=== PATIENT | male | born 1950 | race Caucasian/White ===

== ENCOUNTER → 2016-05-16 | Outpatient (CLI) | payer MEDICARE ==
[2016-05-16 14:13] LABS: CH 29.4; CHCM 33.4; HCT 50.6 % (39.0-53.0); HDW 2.56; HGB 16.9 gm/dL (13.0-17.5); MCH 29.6 pg (25.0-35.0); MCHC 33.5 g/dL (31.0-37.0); MCV 88.5 fL (80.0-100.0); Mean Platelet Volume 6.9; RBC 5.71 m/uL (4.30-5.90); RDW 13.4 % (11.5-15.5); WBC 9.6 k/uL (3.8-10.6)
[2016-05-16 14:21] LABS: Anion Gap 12 mmol/L; Blood Urea Nitrogen 14 mg/dL (9-20); Carbon Dioxide 28 mmol/L (22-30); Chloride 102 mmol/L (98-107); Non-African American GFR(MDRD) >60 (>60 ml/min/1.73 sqM); Potassium 4.5 mmol/L (3.5-5.1); Sodium 142 mmol/L (137-145)
== END ==
LOC: LABWHC1 13:34
PROVIDERS: ATTEND Internal Medicine Interventional Cardiology
DX: Z01.812 Encounter for preprocedural laboratory examination (principal); R07.9 Chest pain, unspecified
CPT/HCPCS: 36415; 80051; 82565; 84520; 85027

== ENCOUNTER 2016-05-20 06:21 | Day surgery (SDC) | payer MEDICARE ==
[2016-05-16 11:22] VITALS: BMI 29.7
[2016-05-20] MEDS ORDERED: ASPIRIN 325 MG TAB PO STA (06:52)
[2016-05-20] MEDS ORDERED: ALPRAZolam 0.5 MG TAB PO PRN (06:52)
[2016-05-20] MEDS ORDERED: NITROGLYCERIN SL TABS 0.4 MG TAB SUBLINGUAL PRN (06:52)
[2016-05-20] MEDS ORDERED: ALPRAZolam 0.25 MG TAB PO PRN (06:52)
[2016-05-20] MEDS ORDERED: ATORVASTATIN 80 MG TAB PO STA (06:52)
[2016-05-20] MEDS ORDERED: SODIUM CHLORIDE 0.9% 1,000 ML in EMPTY BAG 1 BAG IV ONE (06:52)
[2016-05-20 07:13] LABS: Glucose,Whole Blood 107 mg/dL (75-99)
[2016-05-20 07:14] VITALS: PULSE 89; RESP 20; TEMP 98.6
[2016-05-20] MEDS ORDERED: fentaNYL (PF) 50 MCG/ML 2 ML AMP IV ONE (07:38)
[2016-05-20] MEDS ORDERED: SODIUM CHLORIDE 0.9% 1,000 ML IV ONE (07:38)
[2016-05-20] MEDS ORDERED: diphenhydrAMINE 50 MG/ML 1 ML VIAL IVP ONE (07:38)
[2016-05-20] MEDS ORDERED: LIDOCAINE 2% INJ 20 MG/ML SQ ONE (07:41)
[2016-05-20] MEDS ORDERED: IOHEXOL 350 MG/ML 100 ML BOTTLE INJ ONE (07:51)
[2016-05-20] MEDS ORDERED: RX INFO: IV CONTRAST WAS GIVEN 1 EACH MISC MISCELLANE PRN (08:05)
--- NOTE | 2016-05-20 08:12 | P.PCN ---
Date of Procedure: 05/20/16 Preoperative Diagnosis: Exertional chest pains with multiple risk factors. Patient has history of hypertension, diabetes and obesity. Nuclear stress test was negative. However given his ongoing chest pains with exertion a cardiac catheterization was requested for definitive diagnosis. Patient was explained the risks and benefits of the procedure. Postoperative Diagnosis: Mild diffuse plaque without any significant lesions Procedure(s) Performed: Left heart catheterization including left ventriculography Description of Procedure: HISTORY: This patient with history of hypertension and diabetes has been experiencing exertional chest tightness. Patient had a nuclear stress test that showed normal perfusion and function. However patient continued to have symptoms and a cardiac catheterization is requested to rule out underlying ischemic heart disease. CONSENT:I have discussed the risks, benefits and alternative therapies for the above-mentioned procedure and for both sedation/analgesia as well as necessary blood product administration, if indicated, as they pertain to this patient. The patient has indicated understanding and acceptance of the risks and procedures discussed. PROCEDURE: Patient was brought to the lab in a fasting state. Patient was given some IV sedation. Conscious sedation was given for about 20 minutes. The right groin is infiltrated with lidocaine and right femoral artery was entered using Seldinger technique. A 6-Vincentian catheter was left in place and selective coronary arteriography and left ventriculography was performed. Patient tolerated the procedure well. Femoral angiogram was performed and Angio -Seal was applied for hemostasis. No immediate complications were noted and patient was transferred to [facility] in a stable condition HEMODYNAMICS: The aortic pressure is 120/70. Left ankle end-diastolic pressure is about 4 to 8. There was no gradient across the aortic valve. SELECTIVE CORONARY ARTERIOGRAPHY: LEFT MAIN: Normal length and patent THE LEFT ANTERIOR DESCENDING CORONARY ARTERY: This is a good caliber vessel which reaches the apex. Gives rise to good-sized diagonal branch which has mild ostial stenosis. THE LEFT CIRCUMFLEX AND IS CORONARY ARTERY: This is a good caliber vessel but nondominant. It gives rise to OM branch and also apical segment. The circumflex and its branches are free of occlusive disease. THE RIGHT CORONARY ARTERY: This is a good caliber vessel giving rise to PDA and PLV and dominant in distribution. It has diffuse plaque throughout its length without any critical focal lesions. LEFT VENTRICULOGRAPHY: This revealed normal-sized cardiac silhouette with preserved LV function. FINAL IMPRESSION: Mild diffuse plaque especially in the right coronary artery without any critical lesions. PLAN: Risk factor modification and the maximum medical therapy PROGNOSIS: Fair
[2016-05-20] MEDS ORDERED: SODIUM CHLORIDE 0.9% 1,000 ML IV SCH (08:15)
[2016-05-20 09:53] LABS: Glucose,Whole Blood 111 mg/dL (75-99)
[2016-05-20 13:21] VITALS: BP 127/77
== END 2016-05-20 13:00 | disposition home or self-care (01) ==
LOC: CATHCVL 06:21
PROVIDERS: ATTEND Internal Medicine Cardiovascular Disease
DX: I25.119 Atherosclerotic heart disease of native coronary artery with unspecified angina pectoris (principal); E11.9 Type 2 diabetes mellitus without complications; I10 Essential (primary) hypertension; E66.9 Obesity, unspecified; F17.210 Nicotine dependence, cigarettes, uncomplicated; Z79.84 Long term (current) use of oral hypoglycemic drugs; Z79.82 Long term (current) use of aspirin; Z79.51 Long term (current) use of inhaled steroids; Z79.899 Other long term (current) drug therapy
CPT/HCPCS: 93458; 99152; C1760; C1894; C1769; J2001; J1200; Q9967; J3010

== ENCOUNTER 2019-04-17 08:34 | Inpatient (IN) | payer MEDICARE ==
[2019-04-17] MEDS ORDERED: SODIUM CHLORIDE 0.9% 500 ML 500 ML IV STA ×2 (09:08→10:02)
[2019-04-17 09:28] LABS: Basophils % (A) 0 %; Eosinophils # (A) 0.2 k/uL (0-0.7); Eosinophils % (A) 2 %; HCT 49.6 % (39.0-53.0); HGB 16.3 gm/dL (13.0-17.5); Lymphocytes # (A) 1.8 k/uL (1.0-4.8); Lymphocytes % (A) 17 %; MCH 29.6 pg (25.0-35.0); MCHC 32.9 g/dL (31.0-37.0); MCV 89.9 fL (80.0-100.0); Mean Platelet Volume 6.9; Monocytes # (A) 0.6 k/uL (0-1.0); Monocytes % (A) 5 %; Neutrophils # (A) 7.9 k/uL (1.3-7.7); Neutrophils % (A) 74 %; Platelet Count 273 k/uL (150-450); RBC 5.52 m/uL (4.30-5.90); RDW 13.4 % (11.5-15.5); WBC 10.6 k/uL (3.8-10.6)
[2019-04-17 09:37] LABS: INR 0.9 (<1.2); Prothrombin Time 9.6 sec (9.0-12.0)
[2019-04-17 09:38] LABS: ALT 23 U/L (4-49); AST 32 U/L (17-59); African American GFR (CKD) >90 (>60 ml/min/1.73 sqM); Albumin 4.1 g/dL (3.5-5.0); Alkaline Phosphatase 91 U/L (38-126); Amylase 40 U/L (30-110); Anion Gap 9 mmol/L; Blood Urea Nitrogen 15 mg/dL (9-20); Calcium 8.8 mg/dL (8.4-10.2); Carbon Dioxide 26 mmol/L (22-30); Chloride 102 mmol/L (98-107); Glucose 141 mg/dL (74-99); Non-African American GFR(CKD) >90 (>60 ml/min/1.73 sqM); Potassium 4.6 mmol/L (3.5-5.1); Sodium 137 mmol/L (137-145); Total Bilirubin 0.5 mg/dL (0.2-1.3); Total Protein 7.2 g/dL (6.3-8.2)
--- NOTE | 2019-04-17 09:39 | ED ---
Abdominal Pain HPI - General Source: patient Mode of arrival: ambulatory Limitations: no limitations <Dora Webb - Last Filed: 04/17/19 15:22> <Germiane Lucas - Last Filed: 04/17/19 23:07> - General Chief Complaint: Abdominal Pain Stated Complaint: ABD Pain Time Seen by Provider: 04/17/19 08:44 - History of Present Illness Initial Comments: Patient is a 69-year-old male presenting to emergency Department with complaints of blood in his ostomy bag. Patient states he woke up this morning feeling some mild pressure and discomfort in his abdomen. Patient also noticed that he had an empty colostomy bag which is abnormal for him in the mornings. Upon further inspection he states he noticed blood in his bag. Patient did try to eat some toast and went back to bed for a few hours and when he woke up he is still had noticeable discomfort in his abdomen so he came to the ER. Patient states he's had his colostomy for approximately 20 years. It was revised 10 years ago. History of cholecystectomy, no other abdominal surgeries. Patient denies any fever, vomiting, dysuria. He has no other complaints at this time. Upon arrival to the ER, patient's BP slightly elevated at 176 or 96, pulse is 102, rest of vitals normal. (Dora Webb) - Related Data Home Medications Medication Instructions Recorded Confirmed ALPRAZolam [Xanax] 1 mg PO TID PRN 05/16/16 04/17/19 Albuterol Nebulized [Ventolin 2.5 mg INHALATION RT-TID 05/16/16 04/17/19 Nebulized] Ascorbic Acid [Vitamin C] 500 mg PO DAILY 05/16/16 04/17/19 Aspirin 325 mg PO DAILY 05/16/16 04/17/19 Budesonide-Formot 160-4.5 Mcg 2 puff INHALATION RT-BID 05/16/16 04/17/19 [Symbicort 160-4.5 Mcg Inhaler] Calcium Carbonate/Vitamin D3 1 tab PO BID-W/MEALS 05/16/16 04/17/19 [Calcium 500-Vit D3 600 Tablet] FLUoxetine HCL [PROzac] 40 mg PO DAILY 05/16/16 04/17/19 Isosorbide Mononitrate [Isosorbide 30 mg PO DAILY 05/16/16 04/17/19 Mononitrate ER] Nitroglycerin Sl Tabs [Nitrostat] 0.4 mg SUBLINGUAL Q5M PRN 05/16/16 04/17/19 Tiotropium [place] [Spiriva] 1 cap INHALATION DAILY 05/16/16 04/17/19 amLODIPine BESYLATE/BENAZEPRIL 1 cap PO DAILY 05/16/16 04/17/19 [Lotrel 2.5-10 MG] metFORMIN HCL [Glucophage] 500 mg PO DAILY 05/16/16 04/17/19 Albuterol Sulfate [Proair Hfa] 2 puff INHALATION RT-Q6H PRN 04/17/19 04/17/19 C,E,Zinc,Copper 11/Evqkt2u/Lut 1 cap PO DAILY 04/17/19 04/17/19 [Ocuvite Adult 50 Plus Softgel] Chuckie/D3/Mag11/Zinc/Malt Loader/[place]asper/Bor 1 tab PO BID 04/17/19 04/17/19 [Caltrate 600+D Plus Tablet] Levothyroxine Sodium [Synthroid] 25 mcg PO DAILY 04/17/19 04/17/19 Multivitamins, Thera [Multivitamin 1 tab PO DAILY 04/17/19 04/17/19 (formulary)] Nystatin 100,000Unit/gm Cream 1 applic TOPICAL BID 04/17/19 04/17/19 [Mycostatin Cream] Pravastatin Sodium [Pravachol] 10 mg PO DAILY 04/17/19 04/17/19 buPROPion HCL [buPROPion HCL ER] 200 mg PO DAILY 04/17/19 04/17/19 Allergies Allergy/AdvReac Type Severity Reaction Status Date / Time No Known Allergies Allergy Verified 04/17/19 12:01 Review of Systems ROS Other: All systems not noted in ROS Statement are negative. <Dora Webb - Last Filed: 04/17/19 15:22> ROS Other: All systems not noted in ROS Statement are negative. <Germaine Lucas - Last Filed: 04/17/19 23:07> ROS Statement: Those systems with pertinent positive or pertinent negative responses have been documented in the HPI. Past Medical History Past Medical History: Asthma, Chest Pain / Angina, COPD, Diabetes Mellitus, Hypertension, Thyroid Disorder Additional Past Medical History / Comment(s): WHEN REALLY SHORT OF BREATH GETS CP. HX ULCERATIVE COLITIS, HAS ILEOSTOMY. History of Any Multi-Drug Resistant Organisms: None Reported Past Surgical History: Bowel Resection, Cholecystectomy Additional Past Surgical History / Comment(s): HAS ILEOSTOMY, REASSIGNED IT LATER D/T HERNIATION. Past Anesthesia/Blood Transfusion Reactions: No Reported Reaction Past Psychological History: Anxiety, Depression Smoking Status: Current every day smoker Past Alcohol Use History: None Reported Past Drug Use History: None Reported - Past Family History Father Family Medical History: Cancer, Deep Vein Thrombosis (DVT) Sister(s) Family Medical History: Cancer, CVA/TIA <Dora Webb - Last Filed: 04/17/19 15:22> General Exam Limitations: no limitations <Dora Webb - Last Filed: 04/17/19 15:22> - General Exam Comments Initial Comments: GENERAL: Well-appearing, well-nourished and in no acute distress. HEAD: Atraumatic, normocephalic. EYES: Pupils equal round and reactive to light, extraocular movements intact, sclera anicteric, conjunctiva are normal. ENT: TMs normal, nares patent, oropharynx clear without exudates. Moist mucous membranes. NECK: Normal range of motion, supple without lymphadenopathy or JVD. LUNGS: Breath sounds clear to auscultation bilaterally and equal. No wheezes rales or rhonchi. HEART: Regular rate and rhythm without murmurs, rubs or gallops. ABDOMEN: Patient has generalized mid abdominal as well as right-sided tenderness around colostomy site. There is some hardness of the area as well. No left-sided discomfort. No flank pain. Normoactive bowel sounds. No guarding, no rebound. : Deferred EXTREMITIES: Normal range of motion, no pitting or edema. No clubbing or cyanosis. NEUROLOGICAL: Normal speech, normal gait. PSYCH: Normal mood, normal affect. SKIN: Warm, Dry, normal turgor, no rashes or lesions noted. (Dora Webb) Course Vital Signs 04/17/19 04/17/19 08:36 11:24 Temperature 98 F 97.4 F L Pulse Rate 102 H 76 Respiratory 18 18 Rate Blood Pressure 176/96 147/85 O2 Sat by Pulse 98 96 Oximetry Medical Decision Making - Lab Data Result diagrams: 04/17/19 09:17 04/17/19 09:17 <Dora Webb - Last Filed: 04/17/19 15:22> - Lab Data Result diagrams: 04/17/19 09:17 04/17/19 09:17 <Germaine Lucas - Last Filed: 04/17/19 23:07> - Medical Decision Making Patient is a 69-year-old male with history of colostomy presenting with some abdominal pain as well as blood in his ostomy bag this morning. The bag was also empty which is abnormal for him in the mornings. He has history of cholecystectomy in addition to the colostomy. Patient was slightly tachycardia at 102 upon arrival, rest of vitals normal. Lab work shows lactic acid 2.1. Rest of lab work shows no acute abnormalities. CT of the abdomen shows ileotomy in the right lower quadrant with the small bowel contained within it and a proximal small bowel obstruction. Patient was given fluids, pain control. He does report improvement in his symptoms. Case was discussed with on-call surgeon, Dr. Liz. Patient will be admitted, antibiotics started, NG tube placed. Patient is agreement with this plan of care. Case was discussed with Dr. Lucas who agrees with this plan of care. (Dora Webb) I was available for consultation in the emergency department. The history and physical exam were done by the midlevel provider. I was consulted for this patients care. I reviewed the case with the midlevel provider and based on their presentation of the patient, I agree with the assessment, medical decision making and plan of care as documented. Chart was dictated using [employer] dictation software. Attempts were made to correct any dictation errors however some typographical errors may persist. (Germaine Lucas) - Lab Data Lab Results 04/17/19 04/17/19 04/17/19 Range/Units 09:17 09:17 09:17 WBC 10.6 (3.8-10.6) k/uL RBC 5.52 (4.30-5.90) m/uL Hgb 16.3 (13.0-17.5) gm/dL Hct 49.6 (39.0-53.0) % MCV 89.9 (80.0-100.0) fL MCH 29.6 (25.0-35.0) pg MCHC 32.9 (31.0-37.0) g/dL RDW 13.4 (11.5-15.5) % Plt Count 273 (150-450) k/uL Neutrophils % 74 % Lymphocytes % 17 % Monocytes % 5 % Eosinophils % 2 % Basophils % 0 % Neutrophils # 7.9 H (1.3-7.7) k/uL Lymphocytes # 1.8 (1.0-4.8) k/uL Monocytes # 0.6 (0-1.0) k/uL Eosinophils # 0.2 (0-0.7) k/uL Basophils # 0.0 (0-0.2) k/uL PT 9.6 (9.0-12.0) sec INR 0.9 (<1.2) APTT 23.0 (22.0-30.0) sec Sodium 137 (137-145) mmol/L Potassium 4.6 (3.5-5.1) mmol/L Chloride 102 (98-107) mmol/L Carbon Dioxide 26 (22-30) mmol/L Anion Gap 9 mmol/L BUN 15 (9-20) mg/dL Creatinine 0.79 (0.66-1.25) mg/dL Est GFR (CKD-EPI)AfAm >90 (>60 ml/min/1.73 sqM) Est GFR (CKD-EPI)NonAf >90 (>60 ml/min/1.73 sqM) Glucose 141 H (74-99) mg/dL Lactic Ac Sepsis Rflx Plasma Lactic Acid Kevin (0.7-2.0) mmol/L Calcium 8.8 (8.4-10.2) mg/dL Total Bilirubin 0.5 (0.2-1.3) mg/dL AST 32 (17-59) U/L ALT 23 (4-49) U/L Alkaline Phosphatase 91 (38-126) U/L Total Protein 7.2 (6.3-8.2) g/dL Albumin 4.1 (3.5-5.0) g/dL Amylase 40 (30-110) U/L Lipase 269 (23-300) U/L 04/17/19 04/17/19 Range/Units 09:17 09:56 WBC (3.8-10.6) k/uL RBC (4.30-5.90) m/uL Hgb (13.0-17.5) gm/dL Hct (39.0-53.0) % MCV (80.0-100.0) fL MCH (25.0-35.0) pg MCHC (31.0-37.0) g/dL RDW (11.5-15.5) % Plt Count (150-450) k/uL Neutrophils % % Lymphocytes % % Monocytes % % Eosinophils % % Basophils % % Neutrophils # (1.3-7.7) k/uL Lymphocytes # (1.0-4.8) k/uL Monocytes # (0-1.0) k/uL Eosinophils # (0-0.7) k/uL Basophils # (0-0.2) k/uL PT (9.0-12.0) sec INR (<1.2) APTT (22.0-30.0) sec Sodium (137-145) mmol/L Potassium (3.5-5.1) mmol/L Chloride (98-107) mmol/L Carbon Dioxide (22-30) mmol/L Anion Gap mmol/L BUN (9-20) mg/dL Creatinine (0.66-1.25) mg/dL Est GFR (CKD-EPI)AfAm (>60 ml/min/1.73 sqM) Est GFR (CKD-EPI)NonAf (>60 ml/min/1.73 sqM) Glucose (74-99) mg/dL Lactic Ac Sepsis Rflx Y Plasma Lactic Acid Kevin 2.1 H* (0.7-2.0) mmol/L Calcium (8.4-10.2) mg/dL Total Bilirubin (0.2-1.3) mg/dL AST (17-59) U/L ALT (4-49) U/L Alkaline Phosphatase (38-126) U/L Total Protein (6.3-8.2) g/dL Albumin (3.5-5.0) g/dL Amylase (30-110) U/L Lipase (23-300) U/L Disposition Is patient prescribed a controlled substance at d/c from ED?: No Decision Date: 04/17/19 Decision Time: 11:09 <Dora Webb - Last Filed: 04/17/19 15:22> <Germaine Lucas - Last Filed: 04/17/19 23:07> Clinical Impression: Small bowel obstruction, Abdominal pain, Hernia of small intestine Disposition: ADMITTED IP TO THIS HOSP Condition: Stable
--- NOTE | 2019-04-17 10:26 | CT ---
EXAMINATION TYPE: CT abdomen pelvis w con DATE OF EXAM: 04/17/2019 REFERENCE: None. HISTORY: abdominal pain, blood in ostomy bag HISTORY: Blood in ileostomy bag, gassy REFERENCE: NONE CT DLP: 1477.7 mGy Automated exposure control for dose reduction was used. TECHNIQUE: Helical acquisition through the abdomen and pelvis was obtained following the oral ingesti on of without Oral Contrast and following intravenous administration of 100 mL of Isovue 300. The isabela a was reformatted in axial, coronal and sagittal projections. FINDINGS: There is minimal atelectasis at the lung bases. There is no pleural or pericardial fluid. The heart is not enlarged. Within the abdomen, the gallbladder has been removed. The liver and spleen are normal. Both adrenal glands are normal. Both kidneys demonstrate function. There is a 2.9 cm, simple appearing cyst arising from the lower po le of the left kidney. The pancreas is unremarkable. There is mild to moderate atheromatous calcification of the visualized arterial tree. There is no sig nificant retroperitoneal, iliac or inguinal adenopathy. The bladder appears unremarkable. There is an ostomy in the right lower quadrant. Several loops of small bowel are contained within thi s ostomy. There is proximal dilatation of the small bowel. The very proximal jejunum is not dilated. No large bowel is identified. There is no free fluid and no free air. There is mild facet arthropathy within the spine. There is mild hypertrophic spondylosis in the dorsa l spine. IMPRESSION: 1. ILEOSTOMY IN THE RIGHT LOWER QUADRANT WITH OF THE SMALL BOWEL CONTAINED WITHIN IT AND A PROXIMAL S MALL BOWEL OBSTRUCTION. 2. STATUS POST COLECTOMY AND CHOLECYSTECTOMY. 3. SIMPLE APPEARING LEFT LOWER POLE RENAL CYST.
[2019-04-17] MEDS ORDERED: ONDANSETRON 4 MG/2 ML VIAL IVP STA (10:43)
[2019-04-17] MEDS ORDERED: MORPHINE SULFATE 4 MG/ML SYRINGE IVP STA (10:43)
[2019-04-17] MEDS ORDERED: MORPHINE SULFATE 4 MG/ML SYRINGE IV PRN (11:06)
[2019-04-17] MEDS ORDERED: ONDANSETRON 4 MG/2 ML VIAL IVP PRN (11:06)
[2019-04-17] MEDS ORDERED: NALOXONE 0.4 MG/ML 1 ML VIAL IV PRN (11:06)
[2019-04-17] MEDS ORDERED: PIPERACILLIN-TAZOBACTAM 3.375 GM in SODIUM CHLORIDE 0.9% 100 ML IVPB STA (11:09)
[2019-04-17] MEDS: SODIUM CHLORIDE 0.9% 1,000 ML IV SCH ×2 (14:02→23:30)
[2019-04-17] MEDS ORDERED: BENZOCAINE SPRAY 1 CAN MUCOUS MEM PRN (16:46)
[2019-04-17 16:56] LABS: Glucose,Whole Blood 102 mg/dL (75-99)
[2019-04-17 23:48] LABS: Appearance,Urine Clear (Clear); Bilirubin,Urine Negative (Negative); Blood,Urine Negative (Negative); Color,Urine Yellow; Glucose,Urine (UA) Negative (Negative); Ketones,Urine Negative (Negative); Leukocyte Esterase,Urine Negative (Negative); Nitrite,Urine Negative (Negative); Protein,Urine Negative (Negative); Specific Gravity,Urine 1.027 (1.001-1.035); Urobilinogen,Urine <2.0 mg/dL (<2.0)
[2019-04-18] MEDS ORDERED: ENALAPRILAT 1.25 MG/ML 1 ML VIAL IVP PRN (08:54)
[2019-04-18] MEDS ORDERED: IPRATROPIUM-ALBUTEROL 3 ML NEB INHALATION PRN (08:57)
[2019-04-18] MEDS ORDERED: METOCLOPRAMIDE 5 MG/ML 2 ML VIAL IVP PRN (09:36)
[2019-04-18] MEDS: INSULIN ASPART (NovoLOG) 100 UNIT/ML VIAL SQ SCH ×2 (09:42→15:38)
--- NOTE | 2019-04-18 09:49 | XR ---
EXAMINATION TYPE: XR abdomen 2V DATE OF EXAM: 04/18/2019 COMPARISON: 04/17/2019 HISTORY: Pain TECHNIQUE: One view abdominal series FINDINGS: The osseous structures are intact. The bowel gas pattern is nonspecific there is a paucity of bowel gas. NG tube again noted. Surgical clips gallbladder fossa. 5 mm nodular density left lower lobe. IMPRESSION: 1. Nonspecific abdomen. There is a paucity of bowel gas which can be seen with partial obstruction co rrelate clinically. 2. Nodular appearing density left lung base appears to be compatible areas of linear atelectasis or s carring by recent CT scan.
[2019-04-18] MEDS ORDERED: ONDANSETRON 4 MG/2 ML VIAL IVP PRN (11:19)
--- NOTE | 2019-04-18 11:20 | P.GSCN ---
History of Present Illness Consult date: 04/18/19 Reason for Consult: Small bowel obstruction Requesting physician: Dora Webb History of present illness: CHIEF COMPLAINT: Abdominal pain HISTORY OF PRESENT ILLNESS: 69-year-old male who presented to emergency room with chief complaint of abdominal pain. Patient reports he woke up 2 days ago with some abdominal pain that he thought initially was gas pains. She reports going back to bed and when he woke up again he reported some blood in his ostomy with no stool output. Patient reports since coming to the ER and having NG tube placed, he has had liquid stool. He reports emptying his ostomy a few times this morning. NG to LIS with bilious drainage. Patient reports having an "upset stomach" this morning. He reports nausea. PAST MEDICAL HISTORY: See list. PAST SURGICAL HISTORY: See list. SOCIAL HISTORY: No illicit drug use. REVIEW OF SYSTEMS: CONSTITUTIONAL: Denies fever or chills. HEENT: Denies blurred vision, vision changes, or eye pain. Denies hemoptysis CARDIOVASCULAR: Denies chest pain or pressure. RESPIRATORY: No shortness of breath. GASTROINTESTINAL: Refer to HPI for pertinent findings HEMATOLOGIC: Denies bleeding disorders. GENITOURINARY: Denies any blood in urine. SKIN: Denies pruitis. Denies rash. PHYSICAL EXAM: VITAL SIGNS: Reviewed. GENERAL: Well-developed in no acute distress. HEENT: No sclera icterus. Extraocular movements grossly intact. Moist buccal mucosa. Head is atraumatic, normocephalic. ABDOMEN: Soft. Nondistended. Nontender. Ostomy intact with green/brown liquid stool. NEUROLOGIC: Alert and oriented. Cranial nerves II through XII grossly intact. LABORATORY DATA: WBC 10.6. Hemoglobin 16.3. Platelet count 273. Sodium 137. Potassium 4.6. BUN 15. Creatinine 0.79. Lactic acid 2.1. Repeat 0.9. IMAGING: CT abdomen pelvis: Ostomy right lower quadrant. Several loops of small bowel are contained within this ostomy. Proximal dilation of the small bowel. ASSESSMENT: 1. Abdominal pain 2. Small bowel obstruction PLAN: NPO except for ice chips, popsicles, and medications Continue NG to LIS today due to nausea. Continue Zofran PRN. Obtain 2V abdominal xray Nurse practitioner note has been reviewed by physician. Signing provider agrees with the documented findings, assessment, and plan of care. Past Medical History Past Medical History: Asthma, Chest Pain / Angina, COPD, Diabetes Mellitus, Hype rtension, Thyroid Disorder Additional Past Medical History / Comment(s): WHEN REALLY SHORT OF BREATH GETS CP. HX ULCERATIVE COLITIS, HAS ILEOSTOMY. History of Any Multi-Drug Resistant Organisms: None Reported Past Surgical History: Bowel Resection, Cholecystectomy Additional Past Surgical History / Comment(s): HAS ILEOSTOMY, REASSIGNED IT LATER D/T HERNIATION. Past Anesthesia/Blood Transfusion Reactions: No Reported Reaction Past Psychological History: Anxiety, Depression Smoking Status: Current every day smoker Past Alcohol Use History: None Reported Past Drug Use History: None Reported - Past Family History Father Family Medical History: Cancer, Deep Vein Thrombosis (DVT) Sister(s) Family Medical History: Cancer, CVA/TIA Medications and Allergies Home Medications Medication Instructions Recorded Confirmed Type ALPRAZolam [Xanax] 1 mg PO TID PRN 05/16/16 04/17/19 History Albuterol Nebulized [Ventolin 2.5 mg INHALATION RT-TID 05/16/16 04/17/19 History Nebulized] Ascorbic Acid [Vitamin C] 500 mg PO DAILY 05/16/16 04/17/19 History Aspirin 325 mg PO DAILY 05/16/16 04/17/19 History Budesonide-Formot 160-4.5 Mcg 2 puff INHALATION RT-BID 05/16/16 04/17/19 History [Symbicort 160-4.5 Mcg Inhaler] Calcium Carbonate/Vitamin D3 1 tab PO BID-W/MEALS 05/16/16 04/17/19 History [Calcium 500-Vit D3 600 Tablet] FLUoxetine HCL [PROzac] 40 mg PO DAILY 05/16/16 04/17/19 History Isosorbide Mononitrate [Isosorbide 30 mg PO DAILY 05/16/16 04/17/19 History Mononitrate ER] Nitroglycerin Sl Tabs [Nitrostat] 0.4 mg SUBLINGUAL Q5M PRN 05/16/16 04/17/19 History Tiotropium [place] [Spiriva] 1 cap INHALATION DAILY 05/16/16 04/17/19 History amLODIPine BESYLATE/BENAZEPRIL 1 cap PO DAILY 05/16/16 04/17/19 History [Lotrel 2.5-10 MG] metFORMIN HCL [Glucophage] 500 mg PO DAILY 05/16/16 04/17/19 History Albuterol Sulfate [Proair Hfa] 2 puff INHALATION RT-Q6H PRN 04/17/19 04/17/19 History C,E,Zinc,Copper 11/Wubyp6s/Lut 1 cap PO DAILY 04/17/19 04/17/19 History [Ocuvite Adult 50 Plus Softgel] Chuckie/D3/Mag11/Zinc/Price Accuracy Supervisor/Jasper/Bor 1 tab PO BID 04/17/19 04/17/19 History [Caltrate 600+D Plus Tablet] Levothyroxine Sodium [Synthroid] 25 mcg PO DAILY 04/17/19 04/17/19 History Multivitamins, Thera [Multivitamin 1 tab PO DAILY 04/17/19 04/17/19 History (formulary)] Nystatin 100,000Unit/gm Cream 1 applic TOPICAL BID 04/17/19 04/17/19 History [Mycostatin Cream] Pravastatin Sodium [Pravachol] 10 mg PO DAILY 04/17/19 04/17/19 History buPROPion HCL [buPROPion HCL ER] 200 mg PO DAILY 04/17/19 04/17/19 History Allergies Allergy/AdvReac Type Severity Reaction Status Date / Time No Known Allergies Allergy Verified 04/17/19 12:01 Surgical - Exam Vital Signs Temp Pulse Resp BP Pulse Ox 98 F 102 H 18 176/96 98 04/17/19 08:36 04/17/19 08:36 04/17/19 08:36 04/17/19 08:36 04/17/19 08:36 Results - Labs 04/17/19 09:17 04/17/19 09:17 Abnormal Lab Results - Last 24 Hours (Table) 04/17/19 Range/Units 16:54 POC Glucose (mg/dL) 102 H (75-99) mg/dL
[2019-04-18 11:41] LABS: Glucose,Whole Blood 109 mg/dL (75-99)
[2019-04-18] MEDS: LEVOTHYROXINE IVP 100 MCG/5 ML VIAL IV SCH (11:55)
[2019-04-18] MEDS: PANTOPRAZOLE 40 MG/10 ML VIAL IVP SCH (12:00)
[2019-04-18] MEDS: IPRATROPIUM-ALBUTEROL 3 ML NEB INHALATION SCH ×2 (12:01→20:32)
--- NOTE | 2019-04-18 13:46 | P.HPIM ---
History of Present Illness H&P Date: 04/18/19 Chief Complaint: Blood in ostomy bag This is a 69-year-old male patient of Dr. Angeles, Dr. Painter, Dr. Morel past medical history of diabetes mellitus type 2, hypertension, COPD with FEV1 40% without O2 or prednisone dependence, hypothyroidism, ulcerative colitis status post ileostomy initially done [address] Danielson with revision done [address] Liz, tobacco use and dependence, generalized anxiety disorder and recurrent depression. Patient states that he woke up very early on Thursday morning had bad gas pains around the stoma area. He states his abdomen was also firmer than normal not soft. He had toast and peanut butter went back to bed put a towel over his abdomen trying to relieve the discomfort. He woke up at 7 AM and the pain was still there and then he noticed a bloody liquid in his ostomy bag. It was a bright red fresh type of blood. He complains of nausea without vomiting. He denies any lower extremity edema. He denies any joint scan or eye involvement from the ulcerative colitis. At the time of evaluation, patient has some nausea, no vomiting, abdomen is a little tender around the stoma but softer. Patient came into [facility] emergency center for evaluation. Patient was afebrile, heart rate 102, blood pressure 176/96, pulse ox 98% on room air. CBC unremarkable, electrolytes, renal function within normal limits, blood sugar 141, lactic acid 2.1, liver function tests within normal limits. CAT scan of the abdomen and pelvis with contrast revealed ileostomy in the right lower quadrant with small bowel contained within it and a proximal small bowel obstruction. Status post colectomy and cholecystectomy. Simple appearing left lower patient had NG tube placed, nothing by mouth status, consult with Dr. Liz and patient admitted to the [facility] floor. Abdominal x-ray this morning revealed nonspecific abdomen. Positive city of bowel gas which can be seen with partial obstruction correlate. Nodular appearing density in left lung base appears to be compatible areas of linear atelectasis or scarring. Review of Systems Constitutional: Reports poor appetite, Denies chills, Denies fatigue, Denies fever, Denies lethargy, Denies malaise, Denies weakness, Denies weight loss Eyes: denies blurred vision, denies pain Ears, nose, mouth and throat: Denies dysphagia, Denies headache, Denies nasal congestion, Denies nasal discharge, Denies sore throat, Denies vertigo Cardiovascular: Denies chest pain, Denies decreased exercise tolerance, Denies dyspnea on exertion, Denies edema, Denies shortness of breath Respiratory: Denies cough, Denies cough with sputum, Denies dyspnea, Denies excessive sputum, Denies hemoptysis, Denies home oxygen, Denies respiratory infections, Denies wheezing Gastrointestinal: Reports abdominal pain, Reports constipation, Reports loss of appetite, Reports nausea, Denies diarrhea, Denies vomiting Genitourinary: Denies dysuria, Denies urinary hesitancy, Denies urinary retention Musculoskeletal: Denies frequent falls, Denies gait dysfunction, Denies muscle weakness, Denies myalgias Integumentary: Denies pruritus, Denies rash, Denies wounds Neurological: Denies change in mentation, Denies change in speech, Denies numbness, Denies weakness Psychiatric: Denies anxiety, Denies depression Endocrine: Denies fatigue, Denies weight change Past Medical History Past Medical History: Asthma, Chest Pain / Angina, COPD, Diabetes Mellitus, Hypertension, Thyroid Disorder Additional Past Medical History / Comment(s): WHEN REALLY SHORT OF BREATH GETS CP. HX ULCERATIVE COLITIS, HAS ILEOSTOMY. History of Any Multi-Drug Resistant Organisms: None Reported Past Surgical History: Bowel Resection, Cholecystectomy Additional Past Surgical History / Comment(s): HAS ILEOSTOMY, REASSIGNED IT LATER D/T HERNIATION. Past Anesthesia/Blood Transfusion Reactions: No Reported Reaction Past Psychological History: Anxiety, Depression Smoking Status: Current every day smoker Past Alcohol Use History: None Reported Additional Past Alcohol Use History / Comment(s): Patient is a smoker of 4 cigarettes per day for 50 years. No alcohol or illicit drug use. Past Drug Use History: None Reported - Past Family History Father Family Medical History: Cancer, Deep Vein Thrombosis (DVT) Additional Family Medical History / Comment(s): Father at age 83 from either a stroke or CO. Sister(s) Family Medical History: Cancer, CVA/TIA Additional Family Medical History / Comment(s): Patient has 2 sisters one has history of CVA in her 40s, ulcerative colitis with ileostomy. One sister with no major medical problems. Brother(s) Additional Family Medical History / Comment(s): Patient has 2 brothers one has passed from tongue cancer, one is alive with no major medical problems other than osteoarthritis. Mother Additional Family Medical History / Comment(s): Mother is at age 83 from renal failure with history of diabetes. Patient does not have any children. Medications and Allergies Home Medications Medication Instructions Recorded Confirmed Type ALPRAZolam [Xanax] 1 mg PO TID PRN 05/16/16 04/17/19 History Albuterol Nebulized [Ventolin 2.5 mg INHALATION RT-TID 05/16/16 04/17/19 History Nebulized] Ascorbic Acid [Vitamin C] 500 mg PO DAILY 05/16/16 04/17/19 History Aspirin 325 mg PO DAILY 05/16/16 04/17/19 History Budesonide-Formot 160-4.5 Mcg 2 puff INHALATION RT-BID 05/16/16 04/17/19 History [Symbicort 160-4.5 Mcg Inhaler] Calcium Carbonate/Vitamin D3 1 tab PO BID-W/MEALS 05/16/16 04/17/19 History [Calcium 500-Vit D3 600 Tablet] FLUoxetine HCL [PROzac] 40 mg PO DAILY 05/16/16 04/17/19 History Isosorbide Mononitrate [Isosorbide 30 mg PO DAILY 05/16/16 04/17/19 History Mononitrate ER] Nitroglycerin Sl Tabs [Nitrostat] 0.4 mg SUBLINGUAL Q5M PRN 05/16/16 04/17/19 History Tiotropium Bloomery [Spiriva] 1 cap INHALATION DAILY 05/16/16 04/17/19 History amLODIPine BESYLATE/BENAZEPRIL 1 cap PO DAILY 05/16/16 04/17/19 History [Lotrel 2.5-10 MG] metFORMIN HCL [Glucophage] 500 mg PO DAILY 05/16/16 04/17/19 History Albuterol Sulfate [Proair Hfa] 2 puff INHALATION RT-Q6H PRN 04/17/19 04/17/19 History C,E,Zinc,Copper 11/Hhcpe3e/Lut 1 cap PO DAILY 04/17/19 04/17/19 History [Ocuvite Adult 50 Plus Softgel] Chuckie/D3/Mag11/Zinc/Epic Manager/Jasper/Bor 1 tab PO BID 04/17/19 04/17/19 History [Caltrate 600+D Plus Tablet] Levothyroxine Sodium [Synthroid] 25 mcg PO DAILY 04/17/19 04/17/19 History Multivitamins, Thera [Multivitamin 1 tab PO DAILY 04/17/19 04/17/19 History (formulary)] Nystatin 100,000Unit/gm Cream 1 applic TOPICAL BID 04/17/19 04/17/19 History [Mycostatin Cream] Pravastatin Sodium [Pravachol] 10 mg PO DAILY 04/17/19 04/17/19 History buPROPion HCL [buPROPion HCL ER] 200 mg PO DAILY 04/17/19 04/17/19 History Allergies Allergy/AdvReac Type Severity Reaction Status Date / Time No Known Allergies Allergy Verified 04/17/19 12:01 Physical Exam Vitals: Vital Signs Temp Pulse Pulse Resp BP BP Pulse Ox 04/18/19 07:50 97.5 F L 83 20 155/83 92 L 04/18/19 01:50 98.1 F 77 22 145/70 90 L 04/17/19 19:46 97.8 F 67 20 126/77 92 L 04/17/19 13:22 98.2 F 69 17 124/74 92 L 04/17/19 12:20 97.4 F L 76 18 147/85 96 04/17/19 11:24 97.4 F L 76 18 147/85 96 Intake and Output 04/17/19 04/18/19 04/18/19 22:59 06:59 14:59 Intake Total 0 Output Total 850 Balance 0 -850 Intake: Oral 0 Output: Gastric Drainage 850 Other: # Voids 1 2 # Bowel Movements 2 Gen: This is a 69-year-old male. Patient is resting in bed and appears to be comfortable and in no acute distress. HEENT: Head is atraumatic, normocephalic. Pupils equal, round. Sclerae is anicteric. NG tube in place draining brown fluid. NECK: Supple. No JVD. No lymphadenopathy. No thyromegaly. LUNGS: Clear to auscultation. No wheezes or rhonchi. No intercostal retractions. HEART: Regular rate and rhythm. No murmur. ABDOMEN: Soft. Bowel sounds are hypoactive. No masses. No tenderness. Ileostomy with small amount of stool in ostomy bag. EXTREMITIES: No pedal edema. No calf tenderness. Dorsalis pedis +2 bila terally. NEUROLOGICAL: Patient is awake, alert and oriented x3. Cranial nerves 2 through 12 are grossly intact. Results CBC & Chem 7: 04/17/19 09:17 04/17/19 09:17 Labs: Abnormal Lab Results - Last 24 Hours (Table) 04/17/19 04/17/19 04/17/19 Range/Units 09:17 09:17 09:17 Neutrophils # 7.9 H (1.3-7.7) k/uL Glucose 141 H (74-99) mg/dL POC Glucose (mg/dL) (75-99) mg/dL Plasma Lactic Acid Kevin 2.1 H* (0.7-2.0) mmol/L 04/17/19 Range/Units 16:54 Neutrophils # (1.3-7.7) k/uL Glucose (74-99) mg/dL POC Glucose (mg/dL) 102 H (75-99) mg/dL Plasma Lactic Acid Kevin (0.7-2.0) mmol/L Thrombosis Risk Factor Assmnt - DVT/VTE Prophylaxis DVT/VTE Prophylaxis: Pharmacologic Prophylaxis ordered - Choose All That Apply Each Risk Factor Represents 2 Points: Age 61-74 years Thrombosis Risk Factor Assessment Total Risk Factor Score: 2 Thrombosis Risk Factor Assessment Level: Low Risk Assessment and Plan Plan: 1. Small bowel obstruction. NG tube placed, patient nothing by mouth, consult with Dr. Liz. Continue morphine as needed for pain control, Zofran for nausea. 2. Hypertension. Patient started on Vasotec IV as needed for systolic blood pressure greater than 160. 3. COPD. Continue DuoNeb treatments scheduled 3 times daily and as needed, Symbicort twice daily. 4. Hyperlipidemia. Hold statin. 5. History of ulcerative colitis status post ileostomy with history of revision. 6. Tobacco use and dependence. 7. Generalized anxiety disorder and recurrent depression. 8. GI prophylaxis. Protonix IV push. 9. DVT prophylaxis. Heparin subcu. Patient will be admitted to the hospital for a minimum of 2 night stay. Discharge plan: Return home. Impression and plan of care have been directed as dictated by the signing physician. Shweta Hong nurse practitioner acting as scribe for signing physician.
[2019-04-18] MEDS: SODIUM CHLORIDE 0.9% 1,000 ML IV SCH ×2 (15:38→22:16)
[2019-04-18 17:34] LABS: Glucose,Whole Blood 86 mg/dL (75-99)
[2019-04-18] MEDS: SYMBICORT 160-4.5 MCG INHALER INHALATION SCH (20:32)
[2019-04-18] MEDS: HEPARIN SODIUM,PORCINE 5,000 UNIT/ML 1 ML VIAL SQ SCH (20:49)
[2019-04-19 00:16] LABS: Glucose,Whole Blood 79 mg/dL (75-99)
[2019-04-19] MEDS: INSULIN ASPART (NovoLOG) 100 UNIT/ML VIAL SQ SCH ×5 (00:17→20:45)
[2019-04-19] MEDS ORDERED: ACETAMINOPHEN IV (For NPO) 1,000 MG in EMPTY BAG 1 BAG IVPB ONE (04:15)
[2019-04-19 06:20] LABS: Glucose,Whole Blood 84 mg/dL (75-99)
[2019-04-19] MEDS: LEVOTHYROXINE IVP 100 MCG/5 ML VIAL IV SCH (07:44)
[2019-04-19] MEDS: HEPARIN SODIUM,PORCINE 5,000 UNIT/ML 1 ML VIAL SQ SCH ×2 (07:45→20:45)
[2019-04-19] MEDS: PANTOPRAZOLE 40 MG/10 ML VIAL IVP SCH (07:45)
[2019-04-19 07:49] LABS: HCT 48.1 % (39.0-53.0); HGB 15.4 gm/dL (13.0-17.5); MCH 29.3 pg (25.0-35.0); MCV 91.6 fL (80.0-100.0); Mean Platelet Volume 6.9; Platelet Count 263 k/uL (150-450); RBC 5.26 m/uL (4.30-5.90); RDW 13.4 % (11.5-15.5); WBC 10.2 k/uL (3.8-10.6)
[2019-04-19 08:06] LABS: Albumin 3.5 g/dL (3.5-5.0); Chloride 109 mmol/L (98-107); Glucose 86 mg/dL (74-99); Potassium 4.2 mmol/L (3.5-5.1); Total Protein 6.5 g/dL (6.3-8.2)
[2019-04-19 08:07] LABS: ALT 32 U/L (4-49); AST 33 U/L (17-59); African American GFR (CKD) >90 (>60 ml/min/1.73 sqM); Alkaline Phosphatase 75 U/L (38-126); Anion Gap 8 mmol/L; Blood Urea Nitrogen 14 mg/dL (9-20); Calcium 8.5 mg/dL (8.4-10.2); Carbon Dioxide 25 mmol/L (22-30); Non-African American GFR(CKD) 89 (>60 ml/min/1.73 sqM); Sodium 142 mmol/L (137-145); Total Bilirubin 0.6 mg/dL (0.2-1.3)
[2019-04-19] MEDS: IPRATROPIUM-ALBUTEROL 3 ML NEB INHALATION SCH ×3 (08:19→20:16)
[2019-04-19] MEDS: SYMBICORT 160-4.5 MCG INHALER INHALATION SCH ×2 (08:19→20:16)
[2019-04-19] MEDS ORDERED: SODIUM CHLORIDE 0.65% NASAL SPRAY 44 ML BTL NASAL PRN (09:39)
--- NOTE | 2019-04-19 11:41 | P.PN ---
Subjective Progress Note Date: 04/19/19 CHIEF COMPLAINT: Abdominal pain HISTORY OF PRESENT ILLNESS: Patient examined this morning at the bedside. Patient continues to have liquid stool output from his ostomy. NG tube to low intermittent suction. Patient denies any further nausea today. Denies abdom inal pain. PHYSICAL EXAM: VITAL SIGNS: Reviewed. GENERAL: Well-developed in no acute distress. HEENT: No sclera icterus. Extraocular movements grossly intact. Moist buccal mucosa. Head is atraumatic, normocephalic. ABDOMEN: Soft. Nondistended. Nontender. Ostomy intact with green/brown liquid stool. NEUROLOGIC: Alert and oriented. Cranial nerves II through XII grossly intact. ASSESSMENT: 1. Abdominal pain 2. Small bowel obstruction PLAN: Discontinue NG tube Begin clear liquid diet Possible discharge home tomorrow if patient remains stable and continues to tolerate diet Recommend eventual surgical intervention to repair parastomal hernia. Patient will follow up outpatient with Dr. Liz. Nurse practitioner note has been reviewed by physician. Signing provider agrees with the documented findings, assessment, and plan of care. Objective - Vital Signs Vital signs: Vital Signs Temp 98.3 F 04/19/19 07:46 Pulse 80 04/19/19 08:32 Resp 18 04/19/19 10:07 BP 147/83 04/19/19 07:46 Pulse Ox 95 04/19/19 07:46 Intake & Output 04/18/19 04/19/19 04/19/19 18:59 06:59 18:59 Intake Total 10 730 1930 Output Total 860 240 Balance 10 -130 1690 Intake: Intake, IV Titration 700 1050 Amount ACETAMINOPHEN IV (For NPO 100 400 ) 1,000 mg In Empty Bag 1 bag @ 400 mls/hr IVPB ONCE ONE Rx#:[id number] Sodium Chloride 0.9% 1, 600 650 000 ml @ 75 mls/hr IV . [id number] [facility] Rx#:[id number] Oral 10 30 880 Output: Gastric Drainage 860 240 Other: Voiding Method Urinal # Voids 1 2 3 # Bowel Movements 1 - Labs CBC & Chem 7: 04/19/19 07:07 04/19/19 07:07 Labs: Abnormal Lab Results - Last 24 Hours (Table) 04/18/19 04/19/19 Range/Units 11:39 07:07 Chloride 109 H (98-107) mmol/L POC Glucose (mg/dL) 109 H (75-99) mg/dL
[2019-04-19 11:44] LABS: Glucose,Whole Blood 108 mg/dL (75-99)
[2019-04-19] MEDS: SODIUM CHLORIDE 0.9% 1,000 ML IV SCH (11:53)
[2019-04-19 15:00] LABS: Hemoglobin A1C 6.6 % (4.0-6.0)
[2019-04-19 17:32] LABS: Glucose,Whole Blood 103 mg/dL (75-99)
[2019-04-19] MEDS ORDERED: INSULIN ASPART (NovoLOG) 100 UNIT/ML VIAL SQ SCH (18:00)
[2019-04-19 20:22] LABS: Glucose,Whole Blood 88 mg/dL (75-99)
[2019-04-20] MEDS: SODIUM CHLORIDE 0.9% 1,000 ML IV SCH (05:55)
[2019-04-20 07:10] LABS: Glucose,Whole Blood 88 mg/dL (75-99)
[2019-04-20] MEDS: PANTOPRAZOLE 40 MG/10 ML VIAL IVP SCH (07:57)
[2019-04-20] MEDS: LEVOTHYROXINE IVP 100 MCG/5 ML VIAL IV SCH (07:57)
[2019-04-20] MEDS: HEPARIN SODIUM,PORCINE 5,000 UNIT/ML 1 ML VIAL SQ SCH (07:57)
[2019-04-20] MEDS: IPRATROPIUM-ALBUTEROL 3 ML NEB INHALATION SCH ×2 (08:03→11:25)
[2019-04-20] MEDS: SYMBICORT 160-4.5 MCG INHALER INHALATION SCH (08:03)
[2019-04-20] MEDS: INSULIN ASPART (NovoLOG) 100 UNIT/ML VIAL SQ SCH ×2 (08:41→11:19)
--- NOTE | 2019-04-20 08:51 | P.PN ---
Subjective Progress Note Date: 04/19/19 This is a 69-year-old male patient of Dr. Angeles, Dr. Painter, Dr. Morel past medical history of diabetes mellitus type 2, hypertension, COPD with FEV1 40% without O2 or prednisone dependence, hypothyroidism, ulcerative colitis status post ileostomy initially done [address] Danielson with revision done [address] Liz, tobacco use and dependence, generalized anxiety disorder and recurrent depression. Patient states that he woke up very early on Thursday morning had bad gas pains around the stoma area. He states his abdomen was also firmer than normal not soft. He had toast and peanut butter went back to bed put a towel over his abdomen trying to relieve the discomfort. He woke up at 7 AM and the pain was still there and then he noticed a bloody liquid in his ostomy bag. It was a bright red fresh type of blood. He complains of nausea without vomiting. He denies any lower extremity edema. He denies any joint scan or eye involvement from the ulcerative colitis. At the time of evaluation, patient has some nausea, no vomiting, abdomen is a little tender around the stoma but softer. Patient came into [facility] emergency center for evaluation. Patient was afebrile, heart rate 102, blood pressure 176/96, pulse ox 98% on room air. CBC unremarkable, electrolytes, renal function within normal limits, blood sugar 141, lactic acid 2.1, liver function tests within normal limits. CAT scan of the abdomen and pelvis with contrast revealed ileostomy in the right lower quadrant with small bowel contained within it and a proximal small bowel obstruction. Status post colectomy and cholecystectomy. Simple appearing left lower patient had NG tube placed, nothing by mouth status, consult with Dr. Liz and patient admitted to the [facility] floor. Abdominal x-ray this morning revealed nonspecific abdomen. Positive city of bowel gas which can be seen with partial obstruction correlate. Nodular appearing density in left lung base appears to be compatible areas of linear atelectasis or scarring. 3/3: Patient has had his NG tube removed and started on clear liquid diet. Patient states he has not tried anything oral yet. He states abdominal pain is gone. He denies any nausea or vomiting. Plan will be for outpatient surgical intervention at a later time. Patient has been afebrile, heart rate 90, blood pressure 139/76, pulse ox 93% on room air. CBC is within normal limits, chloride 109 otherwise electrolytes renal function and liver function tests within normal limits. Hemoglobin A1c 6.6. Objective - Vital Signs Vital signs: Vital Signs Temp 98.3 F 04/19/19 07:46 Pulse 80 04/19/19 08:32 Resp 18 04/19/19 10:07 BP 147/83 04/19/19 07:46 Pulse Ox 95 04/19/19 07:46 Intake & Output 04/18/19 04/19/19 04/19/19 18:59 06:59 18:59 Intake Total 10 730 Output Total 860 240 Balance 10 -130 -240 Intake: Intake, IV Titration 700 Amount ACETAMINOPHEN IV (For NPO 100 ) 1,000 mg In Empty Bag 1 bag @ 400 mls/hr IVPB ONCE ONE Rx#:[id number] Sodium Chloride 0.9% 1, 600 000 ml @ 75 mls/hr IV . [id number] [facility] Rx#:[id number] Oral 10 30 Output: Gastric Drainage 860 240 Other: Voiding Method Urinal # Voids 1 2 - Exam Review of Systems Constitutional: Reports poor appetite, Denies chills, Denies fatigue, Denies fever, Denies lethargy, Denies malaise, Denies weakness, Denies weight loss Eyes: denies blurred vision, denies pain Ears, nose, mouth and throat: Denies dysphagia, Denies headache, Denies nasal congestion, Denies nasal discharge, Denies sore throat, Denies vertigo Cardiovascular: Denies chest pain, Denies decreased exercise tolerance, Denies dyspnea on exertion, Denies edema, Denies shortness of breath Respiratory: Denies cough, Denies cough with sputum, Denies dyspnea, Denies excessive sputum, Denies hemoptysis, Denies home oxygen, Denies respiratory infections, Denies wheezing Gastrointestinal: Denies abdominal pain, denies constipation, denies loss of appetite, denies nausea, Denies diarrhea, Denies vomiting Genitourinary: Denies dysuria, Denies urinary hesitancy, Denies urinary retention Musculoskeletal: Denies frequent falls, Denies gait dysfunction, Denies muscle weakness, Denies myalgias Integumentary: Denies pruritus, Denies rash, Denies wounds Neurological: Denies change in mentation, Denies change in speech, Denies numbness, Denies weakness Psychiatric: Denies anxiety, Denies depression Endocrine: Denies fatigue, Denies weight change Physical examination Gen: This is a 69-year-old male. Patient is resting in bed and appears to be comfortable and in no acute distress. HEENT: Head is atraumatic, normocephalic. Pupils equal, round. Sclerae is anicteric. NG tube in place draining brown fluid. NECK: Supple. No JVD. No lymphadenopathy. No thyromegaly. LUNGS: Clear to auscultation. No wheezes or rhonchi. No intercostal retractions. HEART: Regular rate and rhythm. No murmur. ABDOMEN: Soft. Bowel sounds are normal. No masses. No tenderness. Ileostomy with stool in ostomy bag. EXTREMITIES: No pedal edema. No calf tenderness. Dorsalis pedis +2 bilaterally. NEUROLOGICAL: Patient is awake, alert and oriented x3. Cranial nerves 2 through 12 are grossly intact. - Labs CBC & Chem 7: 04/19/19 07:07 04/19/19 07:07 Labs: Abnormal Lab Results - Last 24 Hours (Table) 04/18/19 04/19/19 Range/Units 11:39 07:07 Chloride 109 H (98-107) mmol/L POC Glucose (mg/dL) 109 H (75-99) mg/dL Assessment and Plan Plan: 1. Small bowel obstruction. NG tube removed. Diet advanced to clear liquids. Consult with general surgery appreciated. 2. Hypertension. Patient started on Vasotec IV as needed for systolic blood pressure greater than 160. 3. COPD. Continue DuoNeb treatments scheduled 3 times daily and as needed, Symbicort twice daily. 4. Hyperlipidemia. Hold statin. 5. History of ulcerative colitis status post ileostomy with history of rev ision. 6. Tobacco use and dependence. 7. Generalized anxiety disorder and recurrent depression. 8. GI prophylaxis. Protonix IV push. 9. DVT prophylaxis. Heparin subcu. Discharge plan: Return home tomorrow. Impression and plan of care have been directed as dictated by the signing phys jana. Shweta Hong nurse practitioner acting as scribe for signing physician.
[2019-04-20] MEDS ORDERED: ALPRAZolam 1 MG TAB PO PRN (10:57)
--- NOTE | 2019-04-20 11:14 | P.PN ---
Subjective Progress Note Date: 04/20/19 CHIEF COMPLAINT: Abdominal pain HISTORY OF PRESENT ILLNESS: Patient examined this morning. Denies abdominal pain. Ostomy with stool noted. Tolerating liquid diet. Reports nausea but states it is from his anxiety. He is prescribed Xanax at home. PHYSICAL EXAM: VITAL SIGNS: Reviewed. GENERAL: Well-developed in no acute distress. HEENT: No sclera icterus. Extraocular movements grossly intact. Moist buccal mucosa. Head is atraumatic, normocephalic. ABDOMEN: Soft. Nondistended. Nontender. Ostomy intact with green/brown liquid stool. NEUROLOGIC: Alert and oriented. Cranial nerves II through XII grossly intact. ASSESSMENT: 1. Abdominal pain 2. Small bowel obstruction PLAN: Advance diet Resume xanax and prozac May be discharged home today from a surgical standpoint if tolerating diet Recommend eventual surgical intervention to repair parastomal hernia. Patient will follow up outpatient with Dr. Liz. Nurse practitioner note has been reviewed by physician. Signing provider agrees with the documented findings, assessment, and plan of care. Objective - Vital Signs Vital signs: Vital Signs Temp 98.5 F 04/20/19 07:51 Pulse 88 04/20/19 08:14 Resp 17 04/20/19 07:51 BP 165/83 04/20/19 07:51 Pulse Ox 93 L 04/20/19 07:51 Intake & Output 04/19/19 04/20/19 04/20/19 18:59 06:59 18:59 Intake Total 1930 1490 Output Total 240 Balance 1690 1490 Intake: Intake, IV Titration 1050 900 Amount ACETAMINOPHEN IV (For NPO 400 ) 1,000 mg In Empty Bag 1 bag @ 400 mls/hr IVPB ONCE ONE Rx#:[id number] Sodium Chloride 0.9% 1, 650 900 000 ml @ 75 mls/hr IV . [id number] [facility] Rx#:[id number] Oral 880 590 Output: Gastric Drainage 240 Other: Voiding Method Urinal Toilet Toilet # Voids 3 2 # Bowel Movements 1 - Labs CBC & Chem 7: 04/19/19 07:07 04/19/19 07:07 Labs: Abnormal Lab Results - Last 24 Hours (Table) 04/19/19 04/19/19 04/19/19 Range/Units 07:07 11:42 17:26 POC Glucose (mg/dL) 108 H 103 H (75-99) mg/dL Hemoglobin A1c 6.6 H (4.0-6.0) %
[2019-04-20 11:18] LABS: Glucose,Whole Blood 85 mg/dL (75-99)
[2019-04-20] MEDS ORDERED: buPROPion SR 100 MG TABLET.ER PO SCH (12:00)
[2019-04-20] MEDS ORDERED: FLUoxetine HCL 20 MG CAP PO SCH (12:00)
[2019-04-20 12:46] VITALS: BP 133/77; PULSE 86; RESP 20; TEMP 98.8
--- NOTE | 2019-04-20 13:10 | CDI ---
Documentation Clarification Form Date: 04/20/2019 12:56:55 PM From: Lory Tolliver RN, CCDS Admit Date: 04/17/2019 11:05:00 AM Patient Name: Kalen Freeman Visit Number: [id number] Discharge Date: ATTENTION: The Clinical Documentation Specialists (CDI) and [facility] Coding Staff appreciate your assistance in clarifying documentation. Please respond to the clarification below the line at the bottom and electronically sign. The CDI & [facility] Coding staff will review the response and follow-up if needed. Please note: Queries are made part of the Legal Health Record. If you have any questions, please contact the author of this message via ITS. Dr. Leticia Sam ED on 04/16 he presents with chief complaint was abdominal pain ruled in for small bowel obstruction and further clarification is needed. Patient history/risk factors: Diabetes mellitus, Ulcerative colitis, has ileostomy, Clinical Indicators: In your consult on 04/17 this 69-year-old male reports abdominal pain and some blood in his ostomy with no stool output. In ER he had liquid stools. CT Abdomen/pelvis (04/16): Ostomy right lower quadrant with the small bowel contained within it and a proximal small bowel obstruction. 04/17 Abdomen X-ray: Nonspecific abdomen. There is a paucity of bowel gas which can be seen with partial obstruction correlate clinically. Labs: 04/16: WBC 10.6, Lactic acid 2.1 Vital Signs: on admission t 08:36: 176/96 102 18 98 98 % RA Treatment: NPO (advance diet per orders) NGT Low intermittent suction (04/19 now removed) Protonix 40 mg IVP Daily .9% Saline @ 75 mls/hr IV In your professional opinion, can you please further clarify the small bowel obstruction, if known? Partial Small Bowel Obstruction Other, please specify Unable to determine (Last Revision: November 2016) Partial small bowel obstruction MTDD
--- NOTE | 2019-04-20 15:36 | P.DS ---
Providers Date of admission: 04/17/19 11:05 Expected date of discharge: 04/20/19 Attending physician: Leticia Sam Consults: 04/17/19 11:06 Consult Physician Stat Consulting Provider: Donavon Liz Consult Reason/Comments: Small bowel instruction with the ostomy bag Do you want consulting provider notified?: Yes Primary care physician: Justin Angeles [facility] Course: This is a 69-year-old male patient of Dr. Angeles, Dr. Painter, Dr. Morel past medical history of diabetes mellitus type 2, hypertension, COPD with FEV1 40% without O2 or prednisone dependence, hypothyroidism, ulcerative colitis status post ileostomy initially done [address] Danielson with revision done [address] Liz, tobacco use and dependence, generalized anxiety disorder and recurrent depression. Patient states that he woke up very early on Thursday morning had bad gas pains around the stoma area. He states his abdomen was also firmer than normal not soft. He had toast and peanut butter went back to bed put a towel over his abdomen trying to relieve the discomfort. He woke up at 7 AM and the pain was still there and then he noticed a bloody liquid in his ostomy bag. It was a bright red fresh type of blood. He complains of nausea without vomiting. He denies any lower extremity edema. He denies any joint scan or eye involvement from the ulcerative colitis. At the time of evaluation, patient has some nausea, no vomiting, abdomen is a little tender around the stoma but softer. Patient came into [facility] emergency center for evaluation. Patient was afebrile, heart rate 102, blood pressure 176/96, pulse ox 98% on room air. CBC unremarkable, electrolytes, renal function within normal limits, blood sugar 141, lactic acid 2.1, liver function tests within normal limits. CAT scan of the abdomen and pelvis with contrast revealed ileostomy in the right lower quadrant with small bowel contained within it and a proximal small bowel obstruction. Status post colectomy and cholecystectomy. Simple appearing left lower patient had NG tube placed, nothing by mouth status, consult with Dr. Liz and [facility]. Abdominal x-ray this morning revealed nonspecific abdomen. Positive city of bowel gas which can be seen with partial obstruction correlate. Nodular appearing density in left lung base appears to be compatible areas of linear atelectasis or scarring. 04/18: Patient has had his NG tube removed and started on clear liquid diet. Patient states he has not tried anything oral yet. He states abdominal pain is gone. He denies any nausea or vomiting. Plan will be for outpatient surgical intervention at a later time. Patient has been afebrile, heart rate 90, blood pressure 139/76, pulse ox 93% on room air. CBC is within normal limits, chloride 109 otherwise electrolytes renal function and liver function tests within normal limits. Hemoglobin A1c 6.6. 04/19: Patient remains afebrile, heart rate 85, blood pressure 165/83, pulse ox 93% on room air. Patient is tolerating full liquid diet. Patient denies having any abdominal pain. He is having stool from ostomy. He denies any nausea or vomiting. General surgery has evaluated the patient cleared for discharge with plan for full liquid diet at home and slowly advance. Patient states he has an appointment next week with Dr. Liz. Patient will be discharged home today in stable condition. Discharge diagnoses: 1. 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 2. Hypertension. 3. COPD. 4. Hyperlipidemia. 5. History of ulcerative colitis status post ileostomy with history of revision. 6. Tobacco use and dependence. 7. Generalized anxiety disorder and recurrent depression. Discharge plan: Return home Impression and plan of care have been directed as dictated by the signing physician. Shweta Hong nurse practitioner acting as scribe for signing physi roshan. Patient Condition at Discharge: Good Plan - Discharge Summary Discharge Rx Participant: Yes New Discharge Prescriptions: Continue amLODIPine BESYLATE/BENAZEPRIL [Lotrel 2.5-10 MG] 1 cap PO DAILY Aspirin 325 mg PO DAILY Ascorbic Acid [Vitamin C] 500 mg PO DAILY Calcium Carbonate/Vitamin D3 [Calcium 500-Vit D3 600 Tablet] 1 tab PO BID- W/MEALS Budesonide-Formot 160-4.5 Mcg [Symbicort 160-4.5 Mcg Inhaler] 2 puff INHALATION RT-BID ALPRAZolam [Xanax] 1 mg PO TID PRN PRN Reason: Anxiety metFORMIN HCL [Glucophage] 500 mg PO DAILY FLUoxetine HCL [PROzac] 40 mg PO DAILY Tiotropium [place] [Spiriva] 1 cap INHALATION DAILY Nitroglycerin Sl Tabs [Nitrostat] 0.4 mg SUBLINGUAL Q5M PRN PRN Reason: Chest Pain Isosorbide Mononitrate [Isosorbide Mononitrate ER] 30 mg PO DAILY Albuterol Nebulized [Ventolin Nebulized] 2.5 mg INHALATION RT-TID Albuterol Sulfate [Proair Hfa] 2 puff INHALATION RT-Q6H PRN PRN Reason: Shortness Of Breath Pravastatin Sodium [Pravachol] 10 mg PO DAILY Chuckie/D3/Mag11/Zinc/Leg Assembler/Jasper/Bor [Caltrate 600+D Plus Tablet] 1 tab PO BID C,E,Zinc,Copper 11/Yhnwv9m/Lut [Ocuvite Adult 50 Plus Softgel] 1 cap PO DAILY Nystatin 100,000Unit/gm Cream [Mycostatin Cream] 1 applic TOPICAL BID Multivitamins, Thera [Multivitamin (formulary)] 1 tab PO DAILY Levothyroxine Sodium [Synthroid] 25 mcg PO DAILY buPROPion HCL [buPROPion HCL ER] 200 mg PO DAILY Discharge Medication List ALPRAZolam [Xanax] 1 mg PO TID PRN 05/16/16 [History] Albuterol Nebulized [Ventolin Nebulized] 2.5 mg INHALATION RT-TID 05/16/16 [History] Ascorbic Acid [Vitamin C] 500 mg PO DAILY 05/16/16 [History] Aspirin 325 mg PO DAILY 05/16/16 [History] Budesonide-Formot 160-4.5 Mcg [Symbicort 160-4.5 Mcg Inhaler] 2 puff INHALATION RT-BID 05/16/16 [History] Calcium Carbonate/Vitamin D3 [Calcium 500-Vit D3 600 Tablet] 1 tab PO BID- W/MEALS 05/16/16 [History] FLUoxetine HCL [PROzac] 40 mg PO DAILY 05/16/16 [History] Isosorbide Mononitrate [Isosorbide Mononitrate ER] 30 mg PO DAILY 05/16/16 [History] Nitroglycerin Sl Tabs [Nitrostat] 0.4 mg SUBLINGUAL Q5M PRN 05/16/16 [History] Tiotropium [place] [Spiriva] 1 cap INHALATION DAILY 05/16/16 [History] amLODIPine BESYLATE/BENAZEPRIL [Lotrel 2.5-10 MG] 1 cap PO DAILY 05/16/16 [Hist ory] metFORMIN HCL [Glucophage] 500 mg PO DAILY 05/16/16 [History] Albuterol Sulfate [Proair Hfa] 2 puff INHALATION RT-Q6H PRN 04/17/19 [History] C,E,Zinc,Copper 11/Ghskq2k/Lut [Ocuvite Adult 50 Plus Softgel] 1 cap PO DAILY 04/17/19 [History] Chuckie/D3/Mag11/Zinc/Leg Assembler/Jasper/Bor [Caltrate 600+D Plus Tablet] 1 tab PO BID 04/17/19 [History] Levothyroxine Sodium [Synthroid] 25 mcg PO DAILY 04/17/19 [History] Multivitamins, Thera [Multivitamin (formulary)] 1 tab PO DAILY 04/17/19 [History] Nystatin 100,000Unit/gm Cream [Mycostatin Cream] 1 applic TOPICAL BID 04/17/19 [History] Pravastatin Sodium [Pravachol] 10 mg PO DAILY 04/17/19 [History] buPROPion HCL [buPROPion HCL ER] 200 mg PO DAILY 04/17/19 [History] Follow up Appointment(s)/Referral(s): Justin Angeles MD [Primary Care Provider] - 04/28/19 2:00 pm Donavon Liz MD [STAFF PHYSICIAN] - 04/28/19 3:30 pm Patient Instructions/Handouts: Bowel Obstruction (DC) Activity/Diet/Wound Care/Special Instructions: Full liquid diet and advance slowly as tolerated. Discharge Disposition: HOME SELF-CARE
== END 2019-04-20 15:36 | disposition home or self-care (01) | DRG 394 ==
LOC: EC 08:34 → 4SSUR 11:05 → 5NMEDONC 04-18 13:53
PROVIDERS: ADMIT Internal Medicine; ATTEND Internal Medicine
PROC: 0D9670Z Drainage of Stomach with Drainage Device, Via Natural or Artificial Opening (ICD-10-PCS; principal; 2019-04-17)
DX: K43.3 Parastomal hernia with obstruction, without gangrene (principal); F33.9 Major depressive disorder, recurrent, unspecified; K51.90 Ulcerative colitis, unspecified, without complications; I10 Essential (primary) hypertension; E03.9 Hypothyroidism, unspecified; J44.9 Chronic obstructive pulmonary disease, unspecified; E11.9 Type 2 diabetes mellitus without complications; E78.5 Hyperlipidemia, unspecified; F41.1 Generalized anxiety disorder; J98.4 Other disorders of lung; F17.210 Nicotine dependence, cigarettes, uncomplicated; Z79.82 Long term (current) use of aspirin; Z79.51 Long term (current) use of inhaled steroids; Z79.890 Hormone replacement therapy; Z79.84 Long term (current) use of oral hypoglycemic drugs; Z79.899 Other long term (current) drug therapy; Z93.2 Ileostomy status; Z90.49 Acquired absence of other specified parts of digestive tract; Z82.3 Family history of stroke; Z80.8 Family history of malignant neoplasm of other organs or systems; Z82.61 Family history of arthritis; Z83.2 Family history of diseases of the blood and blood-forming organs and certain disorders involving the immune mechanism; Z83.3 Family history of diabetes mellitus; Z84.1 Family history of disorders of kidney and ureter
CPT/HCPCS: 36415; 74019; 74177; 80053; 81003; 82150; 83036; 83605; 83690; 85025; 85027; 85610; 85730; 94640; 96361; 96374; 96375; 99285

== ENCOUNTER 2019-05-06 07:50 | Inpatient (IN) | payer MEDICARE ==
[2019-05-06] MEDS ORDERED: SODIUM CHLORIDE 0.9% 500 ML 500 ML IV STA (07:57)
--- NOTE | 2019-05-06 08:10 | ED ---
General Adult HPI - General Chief complaint: Chest Pain Stated complaint: chest pain, SOB Time Seen by Provider: 05/06/19 07:53 Source: patient, RN/MD, RN notes reviewed, old records reviewed Mode of arrival: wheelchair Limitations: no limitations - History of Present Illness Initial comments: 69-year-old male presenting from preop for evaluation of chest pain, dyspnea. Patient states she's had a chest pressure since this morning. He does report some dyspnea but states this is at baseline he has a history of COPD and emphysema, unchanged from baseline. He was found to be tachycardic and hypotensive in preop and was transported to the emergency department for evaluation. He was scheduled for hernia repair and re-location of colostomy. He is denying any abdominal pain. Denying vomiting. Denying diarrhea. Denies fever or chills. He had been nothing by mouth and on clear liquid diets since yesterday and nothing by mouth for the past 12 hours. - Related Data Home Medications Medication Instructions Recorded Confirmed ALPRAZolam [Xanax] 1 mg PO TID PRN 05/16/16 05/04/19 Albuterol Nebulized [Ventolin 2.5 mg INHALATION RT-TID 05/16/16 05/04/19 Nebulized] Ascorbic Acid [Vitamin C] 500 mg PO DAILY 05/16/16 05/04/19 Aspirin 325 mg PO DAILY 05/16/16 05/04/19 Budesonide-Formot 160-4.5 Mcg 2 puff INHALATION RT-BID 05/16/16 05/04/19 [Symbicort 160-4.5 Mcg Inhaler] FLUoxetine HCL [PROzac] 40 mg PO DAILY 05/16/16 05/04/19 Isosorbide Mononitrate [Isosorbide 30 mg PO DAILY 05/16/16 05/04/19 Mononitrate ER] Nitroglycerin Sl Tabs [Nitrostat] 0.4 mg SUBLINGUAL Q5M PRN 05/16/16 05/04/19 Tiotropium [place] [Spiriva] 1 cap INHALATION DAILY 05/16/16 05/04/19 amLODIPine BESYLATE/BENAZEPRIL 1 cap PO DAILY 05/16/16 05/04/19 [Lotrel 2.5-10 MG] metFORMIN HCL [Glucophage] 500 mg PO DAILY 05/16/16 05/04/19 Albuterol Sulfate [Proair Hfa] 2 puff INHALATION RT-Q6H PRN 04/17/19 05/04/19 C,E,Zinc,Copper 11/Yppkg9y/Lut 1 cap PO DAILY 04/17/19 05/04/19 [Ocuvite Adult 50 Plus Softgel] Chuckie/D3/Mag11/Zinc/Sludge Control Attendant/Jasper/Bor 1 tab PO BID 04/17/19 05/04/19 [Caltrate 600+D Plus Tablet] Levothyroxine Sodium [Synthroid] 25 mcg PO DAILY 04/17/19 05/04/19 Multivitamins, Thera [Multivitamin 1 tab PO DAILY 04/17/19 05/04/19 (formulary)] Nystatin 100,000Unit/gm Cream 1 applic TOPICAL BID 04/17/19 05/04/19 [Mycostatin Cream] Pravastatin Sodium [Pravachol] 10 mg PO Q48H 04/17/19 05/04/19 buPROPion HCL [buPROPion HCL ER] 200 mg PO DAILY 04/17/19 05/04/19 Allergies Allergy/AdvReac Type Severity Reaction Status Date / Time No Known Allergies Allergy Verified 05/04/19 14:14 Review of Systems ROS Statement: Those systems with pertinent positive or pertinent negative responses have been documented in the HPI. ROS Other: All systems not noted in ROS Statement are negative. Past Medical History Past Medical History: Asthma, Chest Pain / Angina, COPD, Diabetes Mellitus, Hyperlipidemia, Hypertension, Thyroid Disorder Additional Past Medical History / Comment(s): Hx irreg HR. "Poor circulation in feet, NT in toes." WHEN REALLY SHORT OF BREATH GETS CP. HX ULCERATIVE COLITIS, HAS ILEOSTOMY, current parastomal hernia. Bruising on arms. History of Any Multi-Drug Resistant Organisms: None Reported Past Surgical History: Bowel Resection, Cholecystectomy, Heart Catheterization Additional Past Surgical History / Comment(s): HAS ILEOSTOMY, REASSIGNED IT LATER D/T HERNIATION. Past Anesthesia/Blood Transfusion Reactions: No Reported Reaction Past Psychological History: Anxiety, Depression Smoking Status: Current every day smoker Past Alcohol Use History: None Reported Past Drug Use History: None Reported - Past Family History Father Family Medical History: Cancer, COPD, Deep Vein Thrombosis (DVT) Additional Family Medical History / Comment(s): Father at age 83 from either a stroke or [place]. Sister(s) Family Medical History: Cancer, CVA/TIA Additional Family Medical History / Comment(s): Patient has 2 sisters one has history of CVA in her 40s, ulcerative colitis with ileostomy. One sister with no major medical problems. Brother(s) Family Medical History: Cancer Additional Family Medical History / Comment(s): Patient has 2 brothers one has passed from tongue cancer, one is alive with no major medical problems other than osteoarthritis. Mother Family Medical History: Diabetes Mellitus, Renal Disease Additional Family Medical History / Comment(s): Mother is at age 83 from renal failure with history of diabetes. Patient does not have any children. General Exam Limitations: no limitations General appearance: alert, in no apparent distress Head exam: Present: atraumatic, normocephalic Eye exam: Present: normal appearance, PERRL ENT exam: Present: mucous membranes dry Neck exam: Present: normal inspection. Absent: tenderness, meningismus Respiratory exam: Present: decreased breath sounds. Absent: respiratory distre ss Cardiovascular Exam: Present: regular rate, normal rhythm GI/Abdominal exam: Present: soft, other (Ostomy). Absent: distended, tenderness, guarding Extremities exam: Present: normal inspection, normal capillary refill. Absent: pedal edema, joint swelling Neurological exam: Present: alert, oriented X3, CN II-XII intact. Absent: motor sensory deficit Psychiatric exam: Present: normal affect, normal mood Skin exam: Present: warm, dry, intact. Absent: cyanosis, diaphoretic Course Vital Signs 05/06/19 05/06/19 07:53 08:32 Temperature 97.6 F Pulse Rate 93 83 Respiratory 19 19 Rate Blood Pressure 86/56 98/58 O2 Sat by Pulse 98 98 Oximetry EKG Findings - EKG Comments: EKG Findings:: EKG: Normal sinus rhythm, left anterior fascicular block, rate of 84, NE interval 162, QRS duration 86, QTC 467, no ST segment elevation. Medical Decision Making - Medical Decision Making 69-year-old male presenting from preop with tachycardia hypotension. Patient had been nothing by mouth for surgery. On reevaluation patient does appear dehydrated. His supine resting heart rate is normal. Blood pressure response welts IV fluids. He has leukocytosis of uncertain origin 15.4, and there is some atelectasis on chest x-ray I will treat for pneumonia however I suspect this may be reactive. Patient has doubling of his creatinine consistent with dehydration. He is given 2 L of IV fluid and placed on maintenance fluid. He is admitted to general surgeon Dr. Liz with medicine on consult. - Lab Data Result diagrams: 05/06/19 08:28 05/06/19 08:28 Lab Results 05/06/19 05/06/19 05/06/19 Range/Units 08:28 08:28 08:28 WBC 15.4 H (3.8-10.6) k/uL RBC 5.74 (4.30-5.90) m/uL Hgb 16.8 (13.0-17.5) gm/dL Hct 51.9 (39.0-53.0) % MCV 90.5 (80.0-100.0) fL MCH 29.2 (25.0-35.0) pg MCHC 32.3 (31.0-37.0) g/dL RDW 13.5 (11.5-15.5) % Plt Count 320 (150-450) k/uL Neutrophils % 82 % Lymphocytes % 11 % Monocytes % 5 % Eosinophils % 1 % Basophils % 0 % Neutrophils # 12.7 H (1.3-7.7) k/uL Lymphocytes # 1.7 (1.0-4.8) k/uL Monocytes # 0.8 (0-1.0) k/uL Eosinophils # 0.1 (0-0.7) k/uL Basophils # 0.0 (0-0.2) k/uL PT 10.7 (9.0-12.0) sec INR 1.0 (<1.2) APTT 22.4 (22.0-30.0) sec Sodium 136 L (137-145) mmol/L Potassium 5.3 H (3.5-5.1) mmol/L Chloride 108 H (98-107) mmol/L Carbon Dioxide 17 L (22-30) mmol/L Anion Gap 11 mmol/L BUN 18 (9-20) mg/dL Creatinine 1.67 H (0.66-1.25) mg/dL Est GFR (CKD-EPI)AfAm 47 (>60 ml/min/1.73 sqM) Est GFR (CKD-EPI)NonAf 41 (>60 ml/min/1.73 sqM) Glucose 218 H (74-99) mg/dL Plasma Lactic Acid Kevin (0.7-2.0) mmol/L Calcium 9.0 (8.4-10.2) mg/dL Magnesium 1.7 (1.6-2.3) mg/dL Total Bilirubin 0.7 (0.2-1.3) mg/dL AST 25 (17-59) U/L ALT 22 (4-49) U/L Alkaline Phosphatase 88 (38-126) U/L Troponin I (0.000-0.034) ng/mL Total Protein 6.9 (6.3-8.2) g/dL Albumin 3.8 (3.5-5.0) g/dL 05/06/19 05/06/19 Range/Units 08:28 08:28 WBC (3.8-10.6) k/uL RBC (4.30-5.90) m/uL Hgb (13.0-17.5) gm/dL Hct (39.0-53.0) % MCV (80.0-100.0) fL MCH (25.0-35.0) pg MCHC (31.0-37.0) g/dL RDW (11.5-15.5) % Plt Count (150-450) k/uL Neutrophils % % Lymphocytes % % Monocytes % % Eosinophils % % Basophils % % Neutrophils # (1.3-7.7) k/uL Lymphocytes # (1.0-4.8) k/uL Monocytes # (0-1.0) k/uL Eosinophils # (0-0.7) k/uL Basophils # (0-0.2) k/uL PT (9.0-12.0) sec INR (<1.2) APTT (22.0-30.0) sec Sodium (137-145) mmol/L Potassium (3.5-5.1) mmol/L Chloride (98-107) mmol/L Carbon Dioxide (22-30) mmol/L Anion Gap mmol/L BUN (9-20) mg/dL Creatinine (0.66-1.25) mg/dL Est GFR (CKD-EPI)AfAm (>60 ml/min/1.73 sqM) Est GFR (CKD-EPI)NonAf (>60 ml/min/1.73 sqM) Glucose (74-99) mg/dL Plasma Lactic Acid Kevin 2.3 H* (0.7-2.0) mmol/L Calcium (8.4-10.2) mg/dL Magnesium (1.6-2.3) mg/dL Total Bilirubin (0.2-1.3) mg/dL AST (17-59) U/L ALT (4-49) U/L Alkaline Phosphatase (38-126) U/L Troponin I <0.012 (0.000-0.034) ng/mL Total Protein (6.3-8.2) g/dL Albumin (3.5-5.0) g/dL Disposition Clinical Impression: Small bowel obstruction, Dehydration, Acute kidney injury Disposition: ADMITTED IP TO THIS [facility] Condition: Stable Is patient prescribed a controlled substance at d/c from ED?: No Referrals: Justin Angeles MD [Primary Care Provider] - 1-2 days Decision to Admit Reason: Admit from EC Decision Date: 05/06/19 Decision Time: 10:07
[2019-05-06] MEDS ORDERED: SODIUM CHLORIDE 0.9% 500 ML 500 ML IV ONE ×2 (08:32→10:01)
[2019-05-06 08:53] LABS: Partial Thromboplastin Time 22.4 sec (22.0-30.0); Prothrombin Time 10.7 sec (9.0-12.0)
--- NOTE | 2019-05-06 08:54 | XR ---
EXAMINATION TYPE: XR chest 2V DATE OF EXAM: 05/06/2019 COMPARISON: Prior chest x-ray 05/15/2016 HISTORY: Chest pain TECHNIQUE: Frontal and lateral views of the chest are obtained. FINDINGS: Patient is rotated and there are overlying cardiac leads. Bandlike area of increased attenu ation is present in the right mid lung, some probable scarring is stable at the level of the lingula. Postop changes are noted in the abdomen. Aorta is dense. Heart size is stable. No pneumothorax or pl eural effusion. Increased AP diameter chest may be indicative of underlying COPD. Anterior wedge comp ression deformity midthoracic spine is chronic, there is multilevel thoracic spondylosis. IMPRESSION: Suspect some subsegmental atelectatic changes, possible scarring. Follow-up as indicated .
[2019-05-06 08:55] LABS: Albumin 3.8 g/dL (3.5-5.0); Magnesium 1.7 mg/dL (1.6-2.3); Potassium 5.3 mmol/L (3.5-5.1); Total Bilirubin 0.7 mg/dL (0.2-1.3); Total Protein 6.9 g/dL (6.3-8.2)
[2019-05-06 09:33] LABS: Basophils % (A) 0 %; Eosinophils # (A) 0.1 k/uL (0-0.7); Eosinophils % (A) 1 %; HCT 51.9 % (39.0-53.0); HGB 16.8 gm/dL (13.0-17.5); Lymphocytes # (A) 1.7 k/uL (1.0-4.8); Lymphocytes % (A) 11 %; MCH 29.2 pg (25.0-35.0); MCHC 32.3 g/dL (31.0-37.0); MCV 90.5 fL (80.0-100.0); Monocytes # (A) 0.8 k/uL (0-1.0); Monocytes % (A) 5 %; Neutrophils # (A) 12.7 k/uL (1.3-7.7); Neutrophils % (A) 82 %; Platelet Count 320 k/uL (150-450); RBC 5.74 m/uL (4.30-5.90); RDW 13.5 % (11.5-15.5); WBC 15.4 k/uL (3.8-10.6)
[2019-05-06] MEDS ORDERED: cefTRIAXone IN SWFI 1,000 MG/10 ML SYRINGE IVP STA (09:59)
[2019-05-06] MEDS ORDERED: AZITHROMYCIN 500 MG in SODIUM CHLORIDE 0.9% 250 ML IVPB STA (09:59)
[2019-05-06] MEDS ORDERED: NALOXONE 0.4 MG/ML 1 ML VIAL IV PRN (10:00)
--- NOTE | 2019-05-06 10:41 | P.GSHP ---
History of Present Illness H&P Date: 05/06/19 Chief Complaint: Dehydration This a 69-year-old male who has a parastomal hernia causing intermittent bowel obstruction. Patient was scheduled for surgery today. However the patient was severely dehydrated due to lack of oral intake due to his intermittent bowel obstruction. Patient's surgery was canceled. Patient workup Ron found have elevated creatinine suggestive of prerenal failure due to dehydration. Patient will be admitted to the hospital and hydrated and optimized prior to reschedule his surgery on Thursday. Past Medical History Past Medical History: Asthma, Chest Pain / Angina, COPD, Diabetes Mellitus, Hyperlipidemia, Hypertension, Thyroid Disorder Additional Past Medical History / Comment(s): Hx irreg HR. "Poor circulation in feet, NT in toes." WHEN REALLY SHORT OF BREATH GETS CP. HX ULCERATIVE COLITIS, HAS ILEOSTOMY, current parastomal hernia. Bruising on arms. History of Any Multi-Drug Resistant Organisms: None Reported Past Surgical History: Bowel Resection, Cholecystectomy, Heart Catheterization Additional Past Surgical History / Comment(s): HAS ILEOSTOMY, REASSIGNED IT LATER D/T HERNIATION. Past Anesthesia/Blood Transfusion Reactions: No Reported Reaction Past Psychological History: Anxiety, Depression Smoking Status: Current every day smoker Past Alcohol Use History: None Reported Past Drug Use History: None Reported - Past Family History Father Family Medical History: Cancer, COPD, Deep Vein Thrombosis (DVT) Additional Family Medical History / Comment(s): Father at age 83 from either a stroke or [place]. Sister(s) Family Medical History: Cancer, CVA/TIA Additional Family Medical History / Comment(s): Patient has 2 sisters one has history of CVA in her 40s, ulcerative colitis with ileostomy. One sister with no major medical problems. Brother(s) Family Medical History: Cancer Additional Family Medical History / Comment(s): Patient has 2 brothers one has passed from tongue cancer, one is alive with no major medical problems other than osteoarthritis. Mother Family Medical History: Diabetes Mellitus, Renal Disease Additional Family Medical History / Comment(s): Mother is at age 83 from renal failure with history of diabetes. Patient does not have any children. Medications and Allergies Home Medications Medication Instructions Recorded Confirmed Type ALPRAZolam [Xanax] 1 mg PO TID PRN 05/16/16 05/04/19 History Albuterol Nebulized [Ventolin 2.5 mg INHALATION RT-TID 05/16/16 05/04/19 History Nebulized] Ascorbic Acid [Vitamin C] 500 mg PO DAILY 05/16/16 05/04/19 History Aspirin 325 mg PO DAILY 05/16/16 05/04/19 History Budesonide-Formot 160-4.5 Mcg 2 puff INHALATION RT-BID 05/16/16 05/04/19 History [Symbicort 160-4.5 Mcg Inhaler] FLUoxetine HCL [PROzac] 40 mg PO DAILY 05/16/16 05/04/19 History Isosorbide Mononitrate [Isosorbide 30 mg PO DAILY 05/16/16 05/04/19 History Mononitrate ER] Nitroglycerin Sl Tabs [Nitrostat] 0.4 mg SUBLINGUAL Q5M PRN 05/16/16 05/04/19 History Tiotropium [place] [Spiriva] 1 cap INHALATION DAILY 05/16/16 05/04/19 History amLODIPine BESYLATE/BENAZEPRIL 1 cap PO DAILY 05/16/16 05/04/19 History [Lotrel 2.5-10 MG] metFORMIN HCL [Glucophage] 500 mg PO DAILY 05/16/16 05/04/19 History Albuterol Sulfate [Proair Hfa] 2 puff INHALATION RT-Q6H PRN 04/17/19 05/04/19 History C,E,Zinc,Copper 11/Xqici8i/Lut 1 cap PO DAILY 04/17/19 05/04/19 History [Ocuvite Adult 50 Plus Softgel] Chuckie/D3/Mag11/Zinc/Teacher [employer]/Jasper/Bor 1 tab PO BID 04/17/19 05/04/19 History [Caltrate 600+D Plus Tablet] Levothyroxine Sodium [Synthroid] 25 mcg PO DAILY 04/17/19 05/04/19 History Multivitamins, Thera [Multivitamin 1 tab PO DAILY 04/17/19 05/04/19 History (formulary)] Nystatin 100,000Unit/gm Cream 1 applic TOPICAL BID 04/17/19 05/04/19 History [Mycostatin Cream] Pravastatin Sodium [Pravachol] 10 mg PO Q48H 04/17/19 05/04/19 History buPROPion HCL [buPROPion HCL ER] 200 mg PO DAILY 04/17/19 05/04/19 History Allergies Allergy/AdvReac Type Severity Reaction Status Date / Time No Known Allergies Allergy Verified 05/06/19 10:37 Surgical - Exam Vital Signs Temp Pulse Resp BP Pulse Ox 97.6 F 93 19 86/56 98 05/06/19 07:53 05/06/19 07:53 05/06/19 07:53 05/06/19 07:53 05/06/19 07:53 - General well developed, well nourished, no distress - Eyes PERRL - ENT normal pinna - Neck no masses - Respiratory normal expansion - Cardiovascular Rhythm: regular - Abdomen Abdomen: soft, non tender Results - Labs 05/06/19 08:28 05/06/19 08:28 Abnormal Lab Results - Last 24 Hours (Table) 05/06/19 05/06/19 05/06/19 Range/Units 08:28 08:28 08:28 WBC 15.4 H (3.8-10.6) k/uL Neutrophils # 12.7 H (1.3-7.7) k/uL Sodium 136 L (137-145) mmol/L Potassium 5.3 H (3.5-5.1) mmol/L Chloride 108 H (98-107) mmol/L Carbon Dioxide 17 L (22-30) mmol/L Creatinine 1.67 H (0.66-1.25) mg/dL Glucose 218 H (74-99) mg/dL Plasma Lactic Acid Kevin 2.3 H* (0.7-2.0) mmol/L Diabetes panel 05/06/19 Range/Units 08:28 Sodium 136 L (137-145) mmol/L Potassium 5.3 H (3.5-5.1) mmol/L Chloride 108 H (98-107) mmol/L Carbon Dioxide 17 L (22-30) mmol/L BUN 18 (9-20) mg/dL Creatinine 1.67 H (0.66-1.25) mg/dL Glucose 218 H (74-99) mg/dL Calcium 9.0 (8.4-10.2) mg/dL AST 25 (17-59) U/L ALT 22 (4-49) U/L Alkaline Phosphatase 88 (38-126) U/L Total Protein 6.9 (6.3-8.2) g/dL Albumin 3.8 (3.5-5.0) g/dL Calcium panel 05/06/19 Range/Units 08:28 Calcium 9.0 (8.4-10.2) mg/dL Albumin 3.8 (3.5-5.0) g/dL Pituitary panel 05/06/19 Range/Units 08:28 Sodium 136 L (137-145) mmol/L Potassium 5.3 H (3.5-5.1) mmol/L Chloride 108 H (98-107) mmol/L Carbon Dioxide 17 L (22-30) mmol/L BUN 18 (9-20) mg/dL Creatinine 1.67 H (0.66-1.25) mg/dL Glucose 218 H (74-99) mg/dL Calcium 9.0 (8.4-10.2) mg/dL Adrenal panel 05/06/19 Range/Units 08:28 Sodium 136 L (137-145) mmol/L Potassium 5.3 H (3.5-5.1) mmol/L Chloride 108 H (98-107) mmol/L Carbon Dioxide 17 L (22-30) mmol/L BUN 18 (9-20) mg/dL Creatinine 1.67 H (0.66-1.25) mg/dL Glucose 218 H (74-99) mg/dL Calcium 9.0 (8.4-10.2) mg/dL Total Bilirubin 0.7 (0.2-1.3) mg/dL AST 25 (17-59) U/L ALT 22 (4-49) U/L Alkaline Phosphatase 88 (38-126) U/L Total Protein 6.9 (6.3-8.2) g/dL Albumin 3.8 (3.5-5.0) g/dL Assessment and Plan Plan: Small bowel obstruction secondary to parastomal hernia Patient will be fluid hydrated over the weekend. We'll plan for rescheduling his surgery on Thursday.
[2019-05-06 11:40] LABS: Glucose,Whole Blood 168 mg/dL (75-99)
[2019-05-06] MEDS ORDERED: NITROGLYCERIN SL TABS 0.4 MG TAB SUBLINGUAL PRN (11:44)
[2019-05-06] MEDS ORDERED: ALBUTEROL NEBULIZED 2.5 MG/3 ML INHALATION SCH (13:00)
[2019-05-06] MEDS ORDERED: ALBUTEROL NEBULIZED 2.5 MG/3 ML INHALATION PRN (13:03)
[2019-05-06] MEDS: ISOSORBIDE MONONITRATE ER 30 MG TAB.ER.24H PO SCH (13:04)
[2019-05-06] MEDS: INSULIN ASPART (NovoLOG) 100 UNIT/ML VIAL SQ SCH ×3 (13:04→20:36)
--- NOTE | 2019-05-06 13:06 | P.CONS ---
History of Present Illness - Reason for Consult Consult date: 05/06/19 Medical management - History of Present Illness This is a 69-year-old male patient of Dr. Angeles, Dr. Painter, Dr. Morel past medical history of diabetes mellitus type 2, hypertension, COPD with FEV1 40% without O2 or prednisone dependence, hypothyroidism, ulcerative colitis status post ileostomy initially done [address] Danielson with revision done [address] Liz, tobacco use and dependence, generalized anxiety disorder and recurrent depression. Patient had a recent hospitalization April 16 through April 19 which time he was treated for partial small bowel obstruction secondary to parastomal hernia. Patient was discharged home with plan to follow-up with Dr. Liz and be scheduled for hernia repair at a later date. Patient was brought into the hospital today for scheduled surgery and while in the preop area, patient developed chest pain and dyspnea. Pain was a pressure type sensation but shortness of breath was at his baseline as patient states he has underlying emphysema and he is at his baseline. Patient was found to be tachycardic and hypotensive and was taken to the emergency center for evaluation. Blood pressure 86/56, heart rate 93, afebrile, pulse ox 90% on room air. EKG was a normal sinus rhythm with no acute ST-T wave changes. Elizabeth BC 15.4, hemoglobin 16.8, platelet count 320. Sodium 136, potassium 5.3, chloride 108, CO2 17, BUN 18, creatinine 1.67, blood sugar 218, liver function tests within normal limits, lactic acid initially 2.3, troponin negative. Chest x-ray shows subsegmental atelectatic changes, possible scarring. Patient has been admitted to the [facility] floor under the care of Dr. Liz and surgery has been rescheduled for Thursday. Patient has been started on IV fluids and Lotrel held. Patient states that he has been eating and drinking without any difficulty and appetite has been good. He denies any new respiratory symptoms. At time of evaluation, patient denies having any chest pain. Review of Systems Constitutional: Denies poor appetite, Denies chills, Denies fatigue, Denies fever, Denies lethargy, Denies malaise, Denies weakness, Denies weight loss Eyes: denies blurred vision, denies pain Ears, nose, mouth and throat: Denies dysphagia, Denies headache, Denies nasal congestion, Denies nasal discharge, Denies sore throat, Denies vertigo Cardiovascular: Denies chest pain, Denies decreased exercise tolerance, Denies dyspnea on exertion, Denies edema, Denies shortness of breath Respiratory: Denies cough, Denies cough with sputum, reports chronic dyspnea, Denies excessive sputum, Denies hemoptysis, reports home oxygen, Denies respiratory infections, Denies wheezing Gastrointestinal: Denies abdominal pain, denies constipation, denies loss of appetite, denies nausea, Denies diarrhea, Denies vomiting Genitourinary: Denies dysuria, Denies urinary hesitancy, Denies urinary retention Musculoskeletal: Denies frequent falls, Denies gait dysfunction, Denies muscle weakness, Denies myalgias Integumentary: Denies pruritus, Denies rash, Denies wounds Neurological: Denies change in mentation, Denies change in speech, Denies numbness, Denies weakness Psychiatric: Denies anxiety, Denies depression Endocrine: Denies fatigue, Denies weight change Past Medical History Past Medical History: Asthma, Chest Pain / Angina, COPD, Diabetes Mellitus, Hyperlipidemia, Hypertension, Thyroid Disorder Additional Past Medical History / Comment(s): Hx irreg HR. "Poor circulation in feet, NT in toes." WHEN REALLY SHORT OF BREATH GETS CP. HX ULCERATIVE COLITIS, HAS ILEOSTOMY, current parastomal hernia. Bruising on arms. History of Any Multi-Drug Resistant Organisms: None Reported Past Surgical History: Bowel Resection, Cholecystectomy, Heart Catheterization Additional Past Surgical History / Comment(s): HAS ILEOSTOMY, REASSIGNED IT LATER D/T HERNIATION. Past Anesthesia/Blood Transfusion Reactions: No Reported Reaction Past Psychological History: Anxiety, Depression Smoking Status: Current every day smoker Past Alcohol Use History: None Reported Additional Past Alcohol Use History / Comment(s): Patient is a smoker of 4 ciga rettes per day for 50 years. No alcohol or illicit drug use. Past Drug Use History: None Reported - Past Family History Father Family Medical History: Cancer, COPD, Deep Vein Thrombosis (DVT) Additional Family Medical History / Comment(s): Father at age 83 from either a stroke or [place]. Sister(s) Family Medical History: Cancer, CVA/TIA Additional Family Medical History / Comment(s): Patient has 2 sisters one has history of CVA in her 40s, ulcerative colitis with ileostomy. One sister with no major medical problems. Brother(s) Family Medical History: Cancer Additional Family Medical History / Comment(s): Patient has 2 brothers one has passed from tongue cancer, one is alive with no major medical problems other than osteoarthritis. Mother Family Medical History: Diabetes Mellitus, Renal Disease Additional Family Medical History / Comment(s): Mother is at age 83 from renal failure with history of diabetes. Patient does not have any children. Medications and Allergies Home Medications Medication Instructions Recorded Confirmed Type ALPRAZolam [Xanax] 1 mg PO TID PRN 05/16/16 05/06/19 History Albuterol Nebulized [Ventolin 2.5 mg INHALATION RT-TID 05/16/16 05/06/19 History Nebulized] Ascorbic Acid [Vitamin C] 500 mg PO DAILY 05/16/16 05/06/19 History Aspirin 325 mg PO DAILY 05/16/16 05/06/19 History Budesonide-Formot 160-4.5 Mcg 2 puff INHALATION RT-BID 05/16/16 05/06/19 History [Symbicort 160-4.5 Mcg Inhaler] FLUoxetine HCL [PROzac] 40 mg PO DAILY 05/16/16 05/06/19 History Isosorbide Mononitrate [Isosorbide 30 mg PO DAILY 05/16/16 05/06/19 History Mononitrate ER] Nitroglycerin Sl Tabs [Nitrostat] 0.4 mg SUBLINGUAL Q5M PRN 05/16/16 05/06/19 History Tiotropium Emmet [Spiriva] 1 cap INHALATION DAILY 05/16/16 05/06/19 History amLODIPine BESYLATE/BENAZEPRIL 1 cap PO DAILY 05/16/16 05/06/19 History [Lotrel 2.5-10 MG] metFORMIN HCL [Glucophage] 500 mg PO DAILY 05/16/16 05/06/19 History Albuterol Sulfate [Proair Hfa] 2 puff INHALATION RT-Q6H PRN 04/17/19 05/06/19 History C,E,Zinc,Copper 11/Ncvzl8f/Lut 1 cap PO DAILY 04/17/19 05/06/19 History [Ocuvite Adult 50 Plus Softgel] Chuckie/D3/Mag11/Zinc/Stone Polisher/Jasper/Bor 1 tab PO BID 04/17/19 05/06/19 History [Caltrate 600+D Plus Tablet] Levothyroxine Sodium [Synthroid] 25 mcg PO DAILY 04/17/19 05/06/19 History Multivitamins, Thera [Multivitamin 1 tab PO DAILY 04/17/19 05/06/19 History (formulary)] Nystatin 100,000Unit/gm Cream 1 applic TOPICAL BID PRN 04/17/19 05/06/19 History [Mycostatin Cream] Pravastatin Sodium [Pravachol] 10 mg PO Q48H 04/17/19 05/06/19 History buPROPion HCL [buPROPion HCL ER] 200 mg PO DAILY 04/17/19 05/06/19 History Allergies Allergy/AdvReac Type Severity Reaction Status Date / Time No Known Allergies Allergy Verified 05/06/19 10:37 Physical Exam Vitals: Vital Signs Temp Pulse Pulse Resp BP BP Pulse Ox 05/06/19 11:20 97.6 F 88 16 97/65 95 05/06/19 10:39 88 19 100/68 98 05/06/19 08:32 83 19 98/58 98 05/06/19 07:53 97.6 F 93 19 86/56 98 Intake and Output 05/05/19 05/06/19 05/06/19 22:59 06:59 14:59 Other: Weight 93.213 kg Gen: This is a 69-year-old male. Patient is resting in bed and appears to be comfortable and in no acute distress. HEENT: Head is atraumatic, normocephalic. Pupils equal, round. Sclerae is anicteric. NG tube in place draining brown fluid. NECK: Supple. No JVD. No lymphadenopathy. No thyromegaly. LUNGS: Clear to auscultation. No wheezes or rhonchi. No intercostal retraction s. HEART: Regular rate and rhythm. No murmur. ABDOMEN: Soft. Bowel sounds are normal. No masses. No tenderness. Ileostomy with small amount of stool in ostomy bag. EXTREMITIES: No pedal edema. No calf tenderness. Dorsalis pedis +2 bilaterally. NEUROLOGICAL: Patient is awake, alert and oriented x3. Cranial nerves 2 through 12 are grossly intact. Results CBC & Chem 7: 05/06/19 08:28 05/06/19 08:28 Labs: Abnormal Lab Results - Last 24 Hours (Table) 05/06/19 05/06/19 05/06/19 Range/Units 08:28 08:28 08:28 WBC 15.4 H (3.8-10.6) k/uL Neutrophils # 12.7 H (1.3-7.7) k/uL Sodium 136 L (137-145) mmol/L Potassium 5.3 H (3.5-5.1) mmol/L Chloride 108 H (98-107) mmol/L Carbon Dioxide 17 L (22-30) mmol/L Creatinine 1.67 H (0.66-1.25) mg/dL Glucose 218 H (74-99) mg/dL POC Glucose (mg/dL) (75-99) mg/dL Plasma Lactic Acid Kevin 2.3 H* (0.7-2.0) mmol/L 05/06/19 Range/Units 11:37 WBC (3.8-10.6) k/uL Neutrophils # (1.3-7.7) k/uL Sodium (137-145) mmol/L Potassium (3.5-5.1) mmol/L Chloride (98-107) mmol/L Carbon Dioxide (22-30) mmol/L Creatinine (0.66-1.25) mg/dL Glucose (74-99) mg/dL POC Glucose (mg/dL) 168 H (75-99) mg/dL Plasma Lactic Acid Kevin (0.7-2.0) mmol/L Assessment and Plan Plan: 1. Acute kidney injury most likely secondary to dehydration, hypotension and Lotrel. Continue IV fluids 100 mL per hour, recheck BMP in the morning. Hold blood pressure medications. Hold metformin. 2. Hyperkalemia secondary to acute kidney injury. Repeat BMP. 3. Metabolic acidosis secondary to renal failure. Continue IV fluids. 4. Leukocytosis with no signs of infection most likely reactive. Repeat CBC in the morning. 5. History of recent partial small bowel obstruction. Surgery has been rescheduled for Thursday. 6. Hypertension. Patient is currently hypotensive. Hold blood pressure medicine. 7. COPD without exacerbation. Continue DuoNeb treatments scheduled 3 times daily and as needed, Symbicort twice daily. 8. Hyperlipidemia. Continue pravastatin 10 mg every 48 hours. 9. History of ulcerative colitis status post ileostomy with history of revision. 10. Tobacco use and dependence. 11. Generalized anxiety disorder and recurrent depression. Continue Xanax 1 mg 3 times daily as needed 8. GI prophylaxis. Protonix. 9. DVT prophylaxis. Heparin subcu. Patient will be admitted to the hospital for a minimum of 2 night stay. Discharge plan: Return home. Impression and plan of care have been directed as dictated by the signing physician. Shweta Hong nurse practitioner acting as scribe for signing phys ician.
[2019-05-06] MEDS: SODIUM CHLORIDE 0.9% 1,000 ML IV SCH ×3 (14:33→23:42)
[2019-05-06 15:25] LABS: Appearance,Urine Cloudy (Clear); Bacteria,Urine Rare /hpf; Bilirubin,Urine Negative (Negative); Blood,Urine Negative (Negative); Color,Urine Yellow; Glucose,Urine (UA) Negative (Negative); Hyaline Casts,Urine 116 /lpf (0-2); Ketones,Urine Negative (Negative); Leukocyte Esterase,Urine Trace (Negative); Mucus,Urine Few /hpf; Nitrite,Urine Negative (Negative); Protein,Urine 2+ (Negative); RBC,Urine 1 /hpf (0-5); Specific Gravity,Urine 1.016 (1.001-1.035); Squamous Epithelial Cell,Urine 2 /hpf (0-4); Urobilinogen,Urine <2.0 mg/dL (<2.0); WBC,Urine 6 /hpf (0-5)
[2019-05-06 16:51] LABS: Glucose,Whole Blood 122 mg/dL (75-99)
[2019-05-06 20:32] LABS: Glucose,Whole Blood 107 mg/dL (75-99)
[2019-05-06] MEDS: HEPARIN SODIUM,PORCINE 5,000 UNIT/ML 1 ML VIAL SQ SCH (20:35)
[2019-05-06] MEDS: IPRATROPIUM-ALBUTEROL 3 ML NEB INHALATION SCH (20:44)
[2019-05-06] MEDS: SYMBICORT 160-4.5 MCG INHALER INHALATION SCH (20:45)
[2019-05-07] MEDS: LEVOTHYROXINE 25 MCG TAB PO SCH (06:14)
[2019-05-07 06:53] LABS: HCT 42.2 % (39.0-53.0); HGB 14.2 gm/dL (13.0-17.5); MCH 30.4 pg (25.0-35.0); MCHC 33.6 g/dL (31.0-37.0); MCV 90.3 fL (80.0-100.0); Mean Platelet Volume 7.1; Platelet Count 260 k/uL (150-450); RBC 4.67 m/uL (4.30-5.90); RDW 13.4 % (11.5-15.5); WBC 9.4 k/uL (3.8-10.6)
[2019-05-07 07:02] LABS: Glucose,Whole Blood 104 mg/dL (75-99)
[2019-05-07 07:15] LABS: African American GFR (CKD) >90 (>60 ml/min/1.73 sqM); Anion Gap 7 mmol/L; Blood Urea Nitrogen 18 mg/dL (9-20); Calcium 8.3 mg/dL (8.4-10.2); Carbon Dioxide 17 mmol/L (22-30); Chloride 112 mmol/L (98-107); Glucose 106 mg/dL (74-99); Non-African American GFR(CKD) 79 (>60 ml/min/1.73 sqM); Potassium 4.4 mmol/L (3.5-5.1); Sodium 136 mmol/L (137-145)
[2019-05-07] MEDS: INSULIN ASPART (NovoLOG) 100 UNIT/ML VIAL SQ SCH ×4 (07:23→21:02)
[2019-05-07] MEDS: SYMBICORT 160-4.5 MCG INHALER INHALATION SCH ×2 (07:31→20:20)
[2019-05-07] MEDS: IPRATROPIUM-ALBUTEROL 3 ML NEB INHALATION SCH ×3 (07:31→20:20)
[2019-05-07] MEDS: FLUoxetine HCL 20 MG CAP PO SCH (08:54)
[2019-05-07] MEDS: HEPARIN SODIUM,PORCINE 5,000 UNIT/ML 1 ML VIAL SQ SCH ×2 (08:54→21:00)
[2019-05-07] MEDS: PANTOPRAZOLE 40 MG TABLET PO SCH (08:55)
[2019-05-07] MEDS: ISOSORBIDE MONONITRATE ER 30 MG TAB.ER.24H PO SCH (08:55)
[2019-05-07] MEDS: PRAVASTATIN SODIUM 20 MG TAB PO SCH (08:55)
[2019-05-07] MEDS: buPROPion SR 100 MG TABLET.ER PO SCH (08:55)
[2019-05-07] MEDS: VIT A,C & E-LUTEIN-MINERALS 1 EACH TAB PO SCH (08:55)
--- NOTE | 2019-05-07 10:04 | P.PN ---
Subjective Progress Note Date: 05/07/19 Principal diagnosis: Acute kidney injury, dehydration, hypotension, hyperkalemia, metabolic acidosis, leukocytosis, history of recent partial bowel obstruction, COPD and history of ulcerative colitis. This is a 69-year-old male patient of Dr. Angeles, Dr. Painter, Dr. Morel past medical history of diabetes mellitus type 2, hypertension, COPD with FEV1 40% without O2 or prednisone dependence, hypothyroidism, ulcerative colitis status post ileostomy initially done [address] Danielson with revision done [address] Liz, tobacco use and dependence, generalized anxiety disorder and recurrent depression. Patient had a recent hospitalization April 16 through April 19 which time he was treated for partial small bowel obstruction secondary to parastomal hernia. Patient was discharged home with plan to follow-up with Dr. Liz and be scheduled for hernia repair at a later date. Patient was brought into the hospital today for scheduled surgery and while in the preop area, patient developed chest pain and dyspnea. Pain was a pressure type sensation but shortness of breath was at his baseline as patient states he has underlying emphysema and he is at his baseline. Patient was found to be tachycardic and hypotensive and was taken to the emergency center for evaluation. Blood pressure 86/56, heart rate 93, afebrile, pulse ox 90% on room air. EKG was a normal sinus rhythm with no acute ST-T wave changes. Elizabeth BC 15.4, hemoglobin 16.8, platelet count 320. Sodium 136, potassium 5.3, chloride 108, CO2 17, BUN 18, creatinine 1.67, blood sugar 218, liver function tests within normal limits, lactic acid initially 2.3, troponin negative. Chest x-ray shows subsegmental atelectatic changes, possible scarring. Patient has been admitted to the [facility] floor under the care of Dr. Liz and surgery has been rescheduled for Thursday. Patient has been started on IV fluids and Lotrel held. Patient states that he has been eating and drinking without any difficulty and appetite has been good. He denies any new respiratory symptoms. At time of evaluation, patient denies having any chest pain. 05/06: Pulse rate is much better, blood pressure has improved significantly, his kidney function and potassium are a lot better today patient has improved hemodynamically, blood sugar still mildly elevated only continue IV hydration his surgery was delayed apparently until at least Thursday is doing well might be able to do his surgery on Thursday. Objective - Vital Signs Vital signs: Vital Signs Temp 97.4 F L 05/07/19 07:40 Pulse 80 05/07/19 07:50 Resp 17 05/07/19 07:40 BP 152/70 05/07/19 07:40 Pulse Ox 98 05/07/19 07:40 Intake & Output 05/06/19 05/07/19 05/07/19 18:59 06:59 18:59 Intake Total 250 Output Total 100 50 Balance -100 -50 250 Weight 93.213 kg Intake: Oral 250 Output: Urine 100 50 Other: Voiding Method Urinal # Voids 2 1 - Exam Review of Systems Constitutional: Denies poor appetite, Denies chills, Denies fatigue, Denies fever, Denies lethargy, Denies malaise, Denies weakness, Denies weight loss Eyes: denies blurred vision, denies pain Ears, nose, mouth and throat: Denies dysphagia, Denies headache, Denies nasal congestion, Denies nasal discharge, Denies sore throat, Denies vertigo Cardiovascular: Denies chest pain, Denies decreased exercise tolerance, Denies dyspnea on exertion, Denies edema, Denies shortness of breath Respiratory: Denies cough, Denies cough with sputum, reports chronic dyspnea, Denies excessive sputum, Denies hemoptysis, reports home oxygen, Denies respiratory infections, Denies wheezing Gastrointestinal: Denies abdominal pain, denies constipation, denies loss of appetite, denies nausea, Denies diarrhea, Denies vomiting Genitourinary: Denies dysuria, Denies urinary hesitancy, Denies urinary retention Musculoskeletal: Denies frequent falls, Denies gait dysfunction, Denies muscle weakness, Denies myalgias Integumentary: Denies pruritus, Denies rash, Denies wounds Neurological: Denies change in mentation, Denies change in speech, Denies numbness, Denies weakness Psychiatric: Denies anxiety, Denies depression Endocrine: Denies fatigue, Denies weight change Physical Exam Vitals: Gen: This is a 69-year-old male. Patient is resting in bed and appears to be comfortable and in no acute distress. HEENT: Head is atraumatic, normocephalic. Pupils equal, round. Sclerae is anicteric. NG tube in place draining brown fluid. NECK: Supple. No JVD. No lymphadenopathy. No thyromegaly. LUNGS: Clear to auscultation. No wheezes or rhonchi. No intercostal retractions. HEART: Regular rate and rhythm. No murmur. ABDOMEN: Soft. Bowel sounds are normal. No masses. No tenderness. Ileostomy with small amount of stool in ostomy bag. EXTREMITIES: No pedal edema. No calf tenderness. Dorsalis pedis +2 bilaterally. NEUROLOGICAL: Patient is awake, alert and oriented x3. Cranial nerves 2 through 12 are grossly intact. - Labs CBC & Chem 7: 05/07/19 06:22 05/07/19 06:22 Labs: Abnormal Lab Results - Last 24 Hours (Table) 05/06/19 05/06/19 05/06/19 Range/Units 11:37 12:26 15:13 Sodium (137-145) mmol/L Chloride (98-107) mmol/L Carbon Dioxide (22-30) mmol/L Glucose (74-99) mg/dL POC Glucose (mg/dL) 168 H (75-99) mg/dL Plasma Lactic Acid Kevin 2.2 H* (0.7-2.0) mmol/L Calcium (8.4-10.2) mg/dL Urine Protein 2+ H (Negative) Ur Leukocyte Esterase Trace H (Negative) Urine WBC 6 H (0-5) /hpf Urine Bacteria Rare H (None) /hpf Hyaline Casts 116 H (0-2) /lpf Urine Mucus Few H (None) /hpf 05/06/19 05/06/19 05/07/19 Range/Units 16:49 20:30 06:22 Sodium 136 L (137-145) mmol/L Chloride 112 H (98-107) mmol/L Carbon Dioxide 17 L (22-30) mmol/L Glucose 106 H (74-99) mg/dL POC Glucose (mg/dL) 122 H 107 H (75-99) mg/dL Plasma Lactic Acid Kevin (0.7-2.0) mmol/L Calcium 8.3 L (8.4-10.2) mg/dL Urine Protein (Negative) Ur Leukocyte Esterase (Negative) Urine WBC (0-5) /hpf Urine Bacteria (None) /hpf Hyaline Casts (0-2) /lpf Urine Mucus (None) /hpf 05/07/19 Range/Units 06:59 Sodium (137-145) mmol/L Chloride (98-107) mmol/L Carbon Dioxide (22-30) mmol/L Glucose (74-99) mg/dL POC Glucose (mg/dL) 104 H (75-99) mg/dL Plasma Lactic Acid Kevin (0.7-2.0) mmol/L Calcium (8.4-10.2) mg/dL Urine Protein (Negative) Ur Leukocyte Esterase (Negative) Urine WBC (0-5) /hpf Urine Bacteria (None) /hpf Hyaline Casts (0-2) /lpf Urine Mucus (None) /hpf Assessment and Plan Plan: 1. Acute kidney injury: Secondary to his bowel prep along with YAEL inhibitor a nd metformin side effect, much better so far kidney function has improved patient is well hydrated and his kidney function improved with creatinine close to 1.0. 2. Hyperkalemia secondary to acute kidney injury. Repeat BMP. 3. Metabolic acidosis secondary to renal failure. Continue IV fluids. 4. Leukocytosis with no signs of infection most likely reactive. Repeat CBC in the morning. 5. History of recent partial small bowel obstruction. Surgery has been rescheduled for Thursday. 6. Hypertension. Patient is currently hypotensive. We will resume medication after surgery on Thursday. Pressure started coming up. 7. COPD without exacerbation. Continue DuoNeb treatments scheduled 3 times daily and as needed, Symbicort twice daily. 8. Hyperlipidemia. Continue pravastatin 10 mg every 48 hours. 9. History of ulcerative colitis status post ileostomy with history of revision. 10. Tobacco use and dependence. 11. Generalized anxiety disorder and recurrent depression. Continue Xanax 1 mg 3 times daily as needed 8. GI prophylaxis. Protonix.
--- NOTE | 2019-05-07 11:22 | P.PN ---
Progress Note - Text Progress Note Date: 05/07/19 The patient's dehydration is improving. He is tolerating liquids. On exam his vital signs are stable. His abdomen soft. Colostomy is functioning. Patient will undergo repair of parastomal hernia on Thursday. He will medically optimized over the weekend.
[2019-05-07 11:42] LABS: Glucose,Whole Blood 105 mg/dL (75-99)
[2019-05-07 16:58] LABS: Glucose,Whole Blood 134 mg/dL (75-99)
[2019-05-07] MEDS: SODIUM CHLORIDE 0.9% 1,000 ML IV SCH (17:23)
[2019-05-07 20:20] LABS: Glucose,Whole Blood 127 mg/dL (75-99)
[2019-05-08] MEDS: SODIUM CHLORIDE 0.9% 1,000 ML IV SCH ×3 (04:03→22:45)
[2019-05-08] MEDS: LEVOTHYROXINE 25 MCG TAB PO SCH (05:44)
[2019-05-08 07:02] LABS: Glucose,Whole Blood 95 mg/dL (75-99)
[2019-05-08] MEDS: INSULIN ASPART (NovoLOG) 100 UNIT/ML VIAL SQ SCH ×4 (07:06→20:08)
[2019-05-08 07:49] LABS: African American GFR (CKD) >90 (>60 ml/min/1.73 sqM); Anion Gap 4 mmol/L; Blood Urea Nitrogen 12 mg/dL (9-20); Calcium 8.2 mg/dL (8.4-10.2); Carbon Dioxide 22 mmol/L (22-30); Chloride 112 mmol/L (98-107); Glucose 81 mg/dL (74-99); Non-African American GFR(CKD) >90 (>60 ml/min/1.73 sqM); Potassium 4.3 mmol/L (3.5-5.1); Sodium 138 mmol/L (137-145)
[2019-05-08] MEDS: PANTOPRAZOLE 40 MG TABLET PO SCH (08:01)
[2019-05-08] MEDS: HEPARIN SODIUM,PORCINE 5,000 UNIT/ML 1 ML VIAL SQ SCH ×2 (08:01→20:06)
[2019-05-08] MEDS: buPROPion SR 100 MG TABLET.ER PO SCH (08:01)
[2019-05-08] MEDS: FLUoxetine HCL 20 MG CAP PO SCH (08:01)
[2019-05-08] MEDS: VIT A,C & E-LUTEIN-MINERALS 1 EACH TAB PO SCH (08:01)
[2019-05-08] MEDS: ISOSORBIDE MONONITRATE ER 30 MG TAB.ER.24H PO SCH (08:01)
[2019-05-08] MEDS: IPRATROPIUM-ALBUTEROL 3 ML NEB INHALATION SCH ×3 (08:40→20:30)
[2019-05-08] MEDS: SYMBICORT 160-4.5 MCG INHALER INHALATION SCH ×2 (08:41→20:30)
--- NOTE | 2019-05-08 10:19 | P.PN ---
Progress Note - Text Progress Note Date: 05/08/19 The patient feels better today he is tolerating diet. He's had some output through his colostomy. His creatinine has improved. On exam his vital signs are stable. His abdomen soft. Patient will undergo repair of paracolostomy hernia due to chronic issues with bowel obstruction.
--- NOTE | 2019-05-08 11:14 | P.PN ---
Subjective Progress Note Date: 05/08/19 Principal diagnosis: Acute kidney injury, dehydration, hypotension, hyperkalemia, metabolic acidosis, leukocytosis, history of recent partial bowel obstruction, COPD and history of ulcerative colitis. This is a 69-year-old male patient of Dr. Angeles, Dr. Painter, Dr. Morel past medical history of diabetes mellitus type 2, hypertension, COPD with FEV1 40% without O2 or prednisone dependence, hypothyroidism, ulcerative colitis status post ileostomy initially done [address] Danielson with revision done [address] Liz, tobacco use and dependence, generalized anxiety disorder and recurrent depression. Patient had a recent hospitalization April 16 through April 19 which time he was treated for partial small bowel obstruction secondary to parastomal hernia. Patient was discharged home with plan to follow-up with Dr. Liz and be scheduled for hernia repair at a later date. Patient was brought into the hospital today for scheduled surgery and while in the preop area, patient developed chest pain and dyspnea. Pain was a pressure type sensation but shortness of breath was at his baseline as patient states he has underlying emphysema and he is at his baseline. Patient was found to be tachycardic and hypotensive and was taken to the emergency center for evaluation. Blood pressure 86/56, heart rate 93, afebrile, pulse ox 90% on room air. EKG was a normal sinus rhythm with no acute ST-T wave changes. Elizabeth BC 15.4, hemoglobin 16.8, platelet count 320. Sodium 136, potassium 5.3, chloride 108, CO2 17, BUN 18, creatinine 1.67, blood sugar 218, liver function tests within normal limits, lactic acid initially 2.3, troponin negative. Chest x-ray shows subsegmental atelectatic changes, possible scarring. Patient has been admitted to the [facility] floor under the care of Dr. Liz and surgery has been rescheduled for Thursday. Patient has been started on IV fluids and Lotrel held. Patient states that he has been eating and drinking without any difficulty and appetite has been good. He denies any new respiratory symptoms. At time of evaluation, patient denies having any chest pain. 05/06: Pulse rate is much better, blood pressure has improved significantly, his kidney function and potassium are a lot better today patient has improved hemodynamically, blood sugar still mildly elevated only continue IV hydration his surgery was delayed apparently until at least Thursday is doing well might be able to do his surgery on Thursday. 05/07: Patient's pulse rate is under control his creatinine has improved significantly increased urine output this point patient is less dehydrated is not having any abdominal pain and as of today surgery scheduled for early tomorrow morning. Objective - Vital Signs Vital signs: Vital Signs Temp 98.7 F 05/08/19 07:20 Pulse 82 05/08/19 08:53 Resp 17 05/08/19 07:20 BP 152/84 05/08/19 07:20 Pulse Ox 96 05/08/19 07:20 Intake & Output 05/07/19 05/08/19 05/08/19 18:59 06:59 18:59 Intake Total 1750 50 790 Output Total 425 Balance 1750 50 365 Intake: Intake, IV Titration 900 200 Amount Sodium Chloride 0.9% 1, 900 200 000 ml @ 100 mls/hr IV . Q10H [facility] Rx#:[id number] Oral 850 50 590 Output: Urine 425 Other: # Voids 2 2 1 # Bowel Movements 1 - Exam Review of Systems Constitutional: Denies poor appetite, Denies chills, Denies fatigue, Denies fever, Denies lethargy, Denies malaise, Denies weakness, Denies weight loss Eyes: denies blurred vision, denies pain Ears, nose, mouth and throat: Denies dysphagia, Denies headache, Denies nasal congestion, Denies nasal discharge, Denies sore throat, Denies vertigo Cardiovascular: Denies chest pain, Denies decreased exercise tolerance, Denies dyspnea on exertion, Denies edema, Denies shortness of breath Respiratory: Denies cough, Denies cough with sputum, reports chronic dyspnea, Denies excessive sputum, Denies hemoptysis, reports home oxygen, Denies respiratory infections, Denies wheezing Gastrointestinal: Denies abdominal pain, denies constipation, denies loss of appetite, denies nausea, Denies diarrhea, Denies vomiting Genitourinary: Denies dysuria, Denies urinary hesitancy, Denies urinary retention Musculoskeletal: Denies frequent falls, Denies gait dysfunction, Denies muscle weakness, Denies myalgias Integumentary: Denies pruritus, Denies rash, Denies wounds Neurological: Denies change in mentation, Denies change in speech, Denies numbness, Denies weakness Psychiatric: Denies anxiety, Denies depression Endocrine: Denies fatigue, Denies weight change Physical Exam Vitals: Gen: This is a 69-year-old male. Patient is resting in bed and ap pears to be comfortable and in no acute distress. HEENT: Head is atraumatic, normocephalic. Pupils equal, round. Sclerae is anicteric. NG tube in place draining brown fluid. NECK: Supple. No JVD. No lymphadenopathy. No thyromegaly. LUNGS: Clear to auscultation. No wheezes or rhonchi. No intercostal retractions. HEART: Regular rate and rhythm. No murmur. ABDOMEN: Soft. Bowel sounds are normal. No masses. No tenderness. Ileostomy with small amount of stool in ostomy bag. EXTREMITIES: No pedal edema. No calf tenderness. Dorsalis pedis +2 bilaterally. NEUROLOGICAL: Patient is awake, alert and oriented x3. Cranial nerves 2 through 12 are grossly intact. - Labs CBC & Chem 7: 05/07/19 06:22 05/08/19 06:14 Labs: Abnormal Lab Results - Last 24 Hours (Table) 05/07/19 05/07/19 05/07/19 Range/Units 11:41 16:57 20:18 Chloride (98-107) mmol/L POC Glucose (mg/dL) 105 H 134 H 127 H (75-99) mg/dL Calcium (8.4-10.2) mg/dL 05/08/19 Range/Units 06:14 Chloride 112 H (98-107) mmol/L POC Glucose (mg/dL) (75-99) mg/dL Calcium 8.2 L (8.4-10.2) mg/dL Microbiology - Last 24 Hours (Table) 05/06/19 08:28 Blood Culture - Preliminary Blood No Growth after 48 hours Assessment and Plan Plan: 1. Acute kidney injury: Secondary to his bowel prep along with YAEL inhibitor and metformin side effect, much better so far kidney function has improved patient is well hydrated and his kidney function improved with creatinine close to 1.0. 2. Hyperkalemia secondary to acute kidney injury. Repeat BMP. 3. Metabolic acidosis secondary to renal failure. Continue IV fluids. 4. Leukocytosis with no signs of infection most likely reactive. Repeat CBC in the morning. 5. History of recent partial small bowel obstruction. Surgery has been rescheduled for Thursday. 6. Hypertension. Patient is currently hypotensive. We will resume medication after surgery on Thursday. Pressure started coming up. 7. COPD without exacerbation. Continue DuoNeb treatments scheduled 3 times daily and as needed, Symbicort twice daily. 8. Hyperlipidemia. Continue pravastatin 10 mg every 48 hours. 9. History of ulcerative colitis status post ileostomy with history of revision. 10. Tobacco use and dependence. 11. Generalized anxiety disorder and recurrent depression. Continue Xanax 1 mg 3 times daily as needed 8. GI prophylaxis. Protonix. Surgery scheduled for tomorrow morning, patient is very stable medically at this point with the kidney function improved continue hydration continue to watch his urine output continue to watch for any increase swelling or tenderness in the abdominal area.
[2019-05-08 11:53] LABS: Glucose,Whole Blood 103 mg/dL (75-99)
[2019-05-08 16:25] LABS: Glucose,Whole Blood 111 mg/dL (75-99)
[2019-05-08 20:16] LABS: Glucose,Whole Blood 112 mg/dL (75-99)
[2019-05-09] MEDS: LEVOTHYROXINE 25 MCG TAB PO SCH (05:43)
[2019-05-09 06:50] LABS: Glucose,Whole Blood 85 mg/dL (75-99)
[2019-05-09] MEDS: INSULIN ASPART (NovoLOG) 100 UNIT/ML VIAL SQ SCH ×4 (07:50→20:07)
[2019-05-09] MEDS ORDERED: IV FLUID CONTINUATION 1,000 ML IV ONE (07:51)
[2019-05-09] MEDS: PANTOPRAZOLE 40 MG TABLET PO SCH (08:02)
[2019-05-09] MEDS: FLUoxetine HCL 20 MG CAP PO SCH (08:02)
[2019-05-09] MEDS: ISOSORBIDE MONONITRATE ER 30 MG TAB.ER.24H PO SCH (08:02)
[2019-05-09] MEDS: PRAVASTATIN SODIUM 20 MG TAB PO SCH (08:02)
[2019-05-09] MEDS: HEPARIN SODIUM,PORCINE 5,000 UNIT/ML 1 ML VIAL SQ SCH ×2 (08:02→20:07)
[2019-05-09] MEDS: VIT A,C & E-LUTEIN-MINERALS 1 EACH TAB PO SCH (08:02)
[2019-05-09] MEDS: buPROPion SR 100 MG TABLET.ER PO SCH (08:02)
[2019-05-09 08:11] LABS: Glucose,Whole Blood 90 mg/dL (75-99)
[2019-05-09] MEDS ORDERED: ONDANSETRON 4 MG/2 ML VIAL IVP ONE (08:27)
[2019-05-09] MEDS ORDERED: MIDAZOLAM 2 MG/2 ML VIAL IVP ONE (08:33)
[2019-05-09] MEDS ORDERED: fentaNYL (PF) 50 MCG/ML 2 ML AMP IVP ONE (08:33)
[2019-05-09] MEDS ORDERED: diphenhydrAMINE 50 MG/ML 1 ML VIAL IVP PRN (08:57)
[2019-05-09] MEDS ORDERED: NALOXONE 0.4 MG/ML 1 ML VIAL IV PRN (08:57)
[2019-05-09] MEDS ORDERED: ONDANSETRON 4 MG/2 ML VIAL IVP PRN (08:57)
[2019-05-09] MEDS ORDERED: DEXAMETHASONE SOD PHOSPHATE 10 MG/ML 1 ML VIAL IV ONE (09:09)
[2019-05-09] MEDS: IPRATROPIUM-ALBUTEROL 3 ML NEB INHALATION SCH ×3 (09:10→20:44)
[2019-05-09] MEDS: SODIUM CHLORIDE 0.9% 1,000 ML IV SCH ×2 (09:10→20:07)
[2019-05-09] MEDS: SYMBICORT 160-4.5 MCG INHALER INHALATION SCH ×2 (09:10→20:44)
[2019-05-09] MEDS ORDERED: fentaNYL (PF) 50 MCG/ML 2 ML AMP ONE (09:13)
[2019-05-09] MEDS ORDERED: GLYCOPYRROLATE 0.2 MG/ML 2 ML VIAL ONE (09:13)
[2019-05-09] MEDS ORDERED: HEPARIN SODIUM,PORCINE 5,000 UNIT/ML 1 ML VIAL ONE (09:13)
[2019-05-09] MEDS ORDERED: LIDOCAINE 1% INJ 10MG/ML (20 ML MDV) ONE (09:13)
[2019-05-09] MEDS ORDERED: NEOSTIGMINE 1 MG/ML 10 ML VIAL ONE (09:13)
[2019-05-09] MEDS ORDERED: ROCURONIUM BROMIDE 10 MG/ML 5 ML VIAL IV ONE (09:13)
[2019-05-09] MEDS ORDERED: PROPOFOL 10 MG/ML 20 ML VIAL IV ONE (09:13)
[2019-05-09] MEDS ORDERED: PHENYLEPHRINE-0.9% NACL SYG 1 MG/10 ML SYRINGE ONE (09:13)
[2019-05-09] MEDS ORDERED: SUCCINYLCHOLINE CHLORIDE 100 MG/5 ML SYR IV ONE (09:13)
[2019-05-09] MEDS ORDERED: SODIUM CHLORIDE 0.9% 100 ML with ceFAZolin 2,000 MG IV ONE ×2 (09:31)
[2019-05-09] MEDS ORDERED: LACTATED RINGERS 1,000 ML IV ONE ×2 (09:45→10:29)
[2019-05-09] MEDS: ROPIVACAINE 250 MG, HYDROMORPHONE (PF) 5 MG in SODIUM CHLORIDE 0.9% 200 ML EPIDURAL PRN ×2 (11:50→12:27)
[2019-05-09 11:58] LABS: Glucose,Whole Blood 135 mg/dL (75-99)
--- NOTE | 2019-05-09 13:19 | P.OP ---
Date of Procedure: 05/09/19 Preoperative Diagnosis: Small bowel obstruction Postoperative Diagnosis: Small bowel obstruction Parastomal hernia Adhesions Procedure(s) Performed: Exploratory laparotomy Lysis of extensive adhesions Repair of parastomal hernia Anesthesia: ALFREDA Surgeon: Donavon Liz Estimated Blood Loss (ml): 100 Pathology: other (Small bowel) Condition: stable Disposition: PACU Description of Procedure: The patient's placed on the operating table in supine position. He received general anesthesia. His abdomen was prepped and draped usual fashion. Patient a previous midline scar. There was entered through the midline scar. The charges divide the layers abdominal wall. The patient had significant adhesions anterior to all wall. Approximately 30 minutes of operative time used to lyse adhesions entered the belly. This point the Bookwalter tract with wound. There were adhesions throughout the small bowel. The lysed with sharp dissection. Patient a large parastomal hernia. The hernia was reduced and then the bowel was then transected at the fascial level. The bowel transected with a GI stapler. At this point a suitable spot for the new ileostomy was chosen in the left upper quadrant. Using a 15 blade the skin was incised and using the left cautery the subcu tissues were divided. The fascia is exposed. A cruciate incision was made in the fascia. The ileostomy then brought up through the rectus muscle. This point the fascial defect of the parastomal hernia was then closed using 0 Ethibond sutures. The fascia was then closed loop #1 PDS suture. Skin was closed deo. The ileostomy was then matured using 3-0 Vicryl suture. The old ileostomy site was then removed using left cautery. The specimen sent to pathology. The skin was then closed deo. Patient top procedure well and sent to recovery room in stable condition.
--- NOTE | 2019-05-09 13:44 | P.PN ---
Subjective Progress Note Date: 05/09/19 This is a 69-year-old male patient of Dr. Angeles, Dr. Painter, Dr. Morel past medical history of diabetes mellitus type 2, hypertension, COPD with FEV1 40% without O2 or prednisone dependence, hypothyroidism, ulcerative colitis status post ileostomy initially done [address] Danielson with revision done [address] Liz, tobacco use and dependence, generalized anxiety disorder and recurrent depression. Patient had a recent hospitalization April 16 through April 19 which time he was treated for partial small bowel obstruction secondary to parastomal hernia. Patient was discharged home with plan to follow-up with Dr. Liz and be scheduled for hernia repair at a later date. Patient was brought into the hospital today for scheduled surgery and while in the preop area, patient developed chest pain and dyspnea. Pain was a pressure type sensation but shortness of breath was at his baseline as patient states he has underlying emphysema and he is at his baseline. Patient was found to be tachycardic and hypotensive and was taken to the emergency center for evaluation. Blood pressure 86/56, heart rate 93, afebrile, pulse ox 90% on room air. EKG was a normal sinus rhythm with no acute ST-T wave changes. Elizabeth BC 15.4, hemoglobin 16.8, platelet count 320. Sodium 136, potassium 5.3, chloride 108, CO2 17, BUN 18, creatinine 1.67, blood sugar 218, liver function tests within normal limits, lactic acid initially 2.3, troponin negative. Chest x-ray shows subsegmental atelectatic changes, possible scarring. Patient has been admitted to the [facility] floor under the care of Dr. Liz and surgery has been rescheduled for Thursday. Patient has been started on IV fluids and Lotrel held. Patient states that he has been eating and drinking without any difficulty and appetite has been good. He denies any new respiratory symptoms. At time of evaluation, patient denies having any chest pain. 05/06: Pulse rate is much better, blood pressure has improved significantly, his kidney function and potassium are a lot better today patient has improved hem odynamically, blood sugar still mildly elevated only continue IV hydration his surgery was delayed apparently until at least Thursday is doing well might be able to do his surgery on Thursday. 05/07: Patient's pulse rate is under control his creatinine has improved significantly increased urine output this point patient is less dehydrated is not having any abdominal pain and as of today surgery scheduled for early tomorrow morning. 05/08: Patient is afebrile, heart rate 80, blood pressure 171/92, pulse ox 95% on room air. Patient is nothing by mouth for support to a laparotomy repair of peristomal hernia scheduled for today. Objective - Vital Signs Vital signs: Vital Signs Temp 98.6 F 05/09/19 07:52 Pulse 80 05/09/19 07:52 Resp 18 05/09/19 07:52 BP 171/92 05/09/19 07:52 Pulse Ox 95 05/09/19 07:52 Intake & Output 05/08/19 05/09/19 05/09/19 18:59 06:59 18:59 Intake Total 1090 Output Total 425 650 Balance 665 -650 Intake: Intake, IV Titration 200 Amount Sodium Chloride 0.9% 1, 200 000 ml @ 100 mls/hr IV . Q10H [facility] Rx#:[id number] Oral 890 Output: Urine 425 650 Other: # Voids 1 1 - Exam Review of Systems Constitutional: Denies poor appetite, Denies chills, Denies fatigue, Denies fever, Denies lethargy, Denies malaise, Denies weakness, Denies weight loss Eyes: denies blurred vision, denies pain Ears, nose, mouth and throat: Denies dysphagia, Denies headache, Denies nasal congestion, Denies nasal discharge, Denies sore throat, Denies vertigo Cardiovascular: Denies chest pain, Denies decreased exercise tolerance, Denies dyspnea on exertion, Denies edema, Denies shortness of breath Respiratory: Denies cough, Denies cough with sputum, reports chronic dyspnea, Denies excessive sputum, Denies hemoptysis, reports home oxygen, Denies res piratory infections, Denies wheezing Gastrointestinal: Denies abdominal pain, denies constipation, denies loss of appetite, denies nausea, Denies diarrhea, Denies vomiting Genitourinary: Denies dysuria, Denies urinary hesitancy, Denies urinary retent ion Musculoskeletal: Denies frequent falls, Denies gait dysfunction, Denies muscle weakness, Denies myalgias Integumentary: Denies pruritus, Denies rash, Denies wounds Neurological: Denies change in mentation, Denies change in speech, Denies numbness, Denies weakness Psychiatric: Denies anxiety, Denies depression Endocrine: Denies fatigue, Denies weight change Physical Exam Gen: This is a 69-year-old male. Patient is resting in bed and appears to be comfortable and in no acute distress. HEENT: Head is atraumatic, normocephalic. Pupils equal, round. Sclerae is anicteric. NG tube in place draining brown fluid. NECK: Supple. No JVD. No lymphadenopathy. No thyromegaly. LUNGS: Clear to auscultation. No wheezes or rhonchi. No intercostal retractions. HEART: Regular rate and rhythm. No murmur. ABDOMEN: Soft. Bowel sounds are normal. No masses. No tenderness. Ileostomy with small amount of stool in ostomy bag. EXTREMITIES: No pedal edema. No calf tenderness. Dorsalis pedis +2 bilaterally. NEUROLOGICAL: Patient is awake, alert and oriented x3. Cranial nerves 2 through 12 are grossly intact. - Labs CBC & Chem 7: 05/07/19 06:22 05/08/19 06:14 Labs: Abnormal Lab Results - Last 24 Hours (Table) 05/08/19 05/08/19 05/08/19 Range/Units 11:52 16:23 20:08 POC Glucose (mg/dL) 103 H 111 H 112 H (75-99) mg/dL Microbiology - Last 24 Hours (Table) 05/06/19 08:28 Blood Culture - Preliminary Blood No Growth after 48 hours Assessment and Plan Plan: 1. Acute kidney injury most likely secondary to dehydration, hypotension and Lotrel, resolved. Continue IV fluids 100 mL per hour, recheck BMP in the morning. Hold metformin. 2. Hyperkalemia secondary to acute kidney injury, resolved. 3. Metabolic acidosis secondary to renal failure, resolved. Continue IV fluids. 4. Leukocytosis with no signs of infection most likely reactive. 5. History of recent partial small bowel obstruction. Surgery has been rescheduled for Thursday. 6. Hypertension. Blood pressure medication will be slowly resumed. 7. COPD without exacerbation. Continue DuoNeb treatments scheduled 3 times daily and as needed, Symbicort twice daily. 8. Hyperlipidemia. Continue pravastatin 10 mg every 48 hours. 9. History of ulcerative colitis status post ileostomy with history of revision. 10. Tobacco use and dependence. 11. Generalized anxiety disorder and recurrent depression. Continue Xanax 1 mg 3 times daily as needed 8. GI prophylaxis. Protonix. 9. DVT prophylaxis. Heparin subcu. Discharge plan: Return home. Impression and plan of care have been directed as dictated by the signing physician. Shweta Hong nurse practitioner acting as scribe for signing physician.
[2019-05-09 17:16] LABS: Glucose,Whole Blood 124 mg/dL (75-99)
[2019-05-09 20:07] LABS: Glucose,Whole Blood 132 mg/dL (75-99)
[2019-05-10] MEDS: SODIUM CHLORIDE 0.9% 1,000 ML IV SCH ×3 (05:17→20:58)
[2019-05-10 06:59] LABS: Glucose,Whole Blood 96 mg/dL (75-99)
[2019-05-10] MEDS: LEVOTHYROXINE 25 MCG TAB PO SCH (07:05)
[2019-05-10] MEDS: INSULIN ASPART (NovoLOG) 100 UNIT/ML VIAL SQ SCH ×4 (07:05→20:58)
[2019-05-10] MEDS: PANTOPRAZOLE 40 MG TABLET PO SCH (07:05)
--- NOTE | 2019-05-10 07:09 | P.PN ---
Progress Note - Text Progress Note Date: 05/10/19 Postoperative day #1 status post explaratory laparotomy and lysis of adhesions under general endotracheal anesthesia,epidural catheter placed for postoperative analgesia, patient doing well epidural site okay, patient currently on combination of epidural infusion solution of Ropivacaine 0.0625% and Dilaudid 20 g per mL the infusion rate at 6ml per hour , patient had no motor deficit epidural site okay , vital signs stable , minimal pain Assessment and plan= post operative day #1 patient doing well ,pain well controlled , there is no anesthesia related complications
[2019-05-10] MEDS: SYMBICORT 160-4.5 MCG INHALER INHALATION SCH ×2 (07:22→20:58)
[2019-05-10] MEDS: IPRATROPIUM-ALBUTEROL 3 ML NEB INHALATION SCH ×3 (07:22→20:58)
[2019-05-10] MEDS: buPROPion SR 100 MG TABLET.ER PO SCH (11:22)
[2019-05-10] MEDS: FLUoxetine HCL 20 MG CAP PO SCH (11:22)
[2019-05-10] MEDS: ISOSORBIDE MONONITRATE ER 30 MG TAB.ER.24H PO SCH (11:23)
[2019-05-10] MEDS: VIT A,C & E-LUTEIN-MINERALS 1 EACH TAB PO SCH (11:23)
[2019-05-10] MEDS: HEPARIN SODIUM,PORCINE 5,000 UNIT/ML 1 ML VIAL SQ SCH ×2 (11:29→20:25)
[2019-05-10 11:42] LABS: Glucose,Whole Blood 100 mg/dL (75-99)
--- NOTE | 2019-05-10 13:34 | P.PN ---
Subjective Progress Note Date: 05/10/19 This is a 69-year-old male patient of Dr. Angeles, Dr. Painter, Dr. Morel past medical history of diabetes mellitus type 2, hypertension, COPD with FEV1 40% without O2 or prednisone dependence, hypothyroidism, ulcerative colitis status post ileostomy initially done [address] Danielson with revision done [address] Liz, tobacco use and dependence, generalized anxiety disorder and recurrent depression. Patient had a recent hospitalization April 16 through April 19 which time he was treated for partial small bowel obstruction secondary to parastomal hernia. Patient was discharged home with plan to follow-up with Dr. Liz and be scheduled for hernia repair at a later date. Patient was brought into the hospital today for scheduled surgery and while in the preop area, patient developed chest pain and dyspnea. Pain was a pressure type sensation but shortness of breath was at his baseline as patient states he has underlying emphysema and he is at his baseline. Patient was found to be tachycardic and hypotensive and was taken to the emergency center for evaluation. Blood pressure 86/56, heart rate 93, afebrile, pulse ox 90% on room air. EKG was a normal sinus rhythm with no acute ST-T wave changes. Elizabeth BC 15.4, hemoglobin 16.8, platelet count 320. Sodium 136, potassium 5.3, chloride 108, CO2 17, BUN 18, creatinine 1.67, blood sugar 218, liver function tests within normal limits, lactic acid initially 2.3, troponin negative. Chest x-ray shows subsegmental atelectatic changes, possible scarring. Patient has been admitted to the [facility] floor under the care of Dr. Liz and surgery has been rescheduled for Thursday. Patient has been started on IV fluids and Lotrel held. Patient states that he has been eating and drinking without any difficulty and appetite has been good. He denies any new respiratory symptoms. At time of evaluation, patient denies having any chest pain. 05/06: Pulse rate is much better, blood pressure has improved significantly, his kidney function and potassium are a lot better today patient has improved hem odynamically, blood sugar still mildly elevated only continue IV hydration his surgery was delayed apparently until at least Thursday is doing well might be able to do his surgery on Thursday. 05/07: Patient's pulse rate is under control his creatinine has improved significantly increased urine output this point patient is less dehydrated is not having any abdominal pain and as of today surgery scheduled for early tomorrow morning. 05/08: Patient is afebrile, heart rate 80, blood pressure 171/92, pulse ox 95% on room air. Patient is nothing by mouth for support to a laparotomy repair of peristomal hernia scheduled for today. 05/09: Yesterday, patient underwent exploratory laparotomy, lysis of extensive adhesions and repair of parastomal hernia by Dr. Liz. Pathology report is pending. Epidural is in place for pain control. Patient has been afebrile, heart rate 88, blood pressure 125/69, pulse ox 90% on room air. Incentive spirometry added. Patient states that he has no pain. He does have output in his ostomy bag. Moore catheter is drained clear stephane urine. Patient to start a full liquid diet for lunch today. Repeat lab work has been ordered for tomorrow. Objective - Vital Signs Vital signs: Vital Signs Temp 99.2 F 05/10/19 02:47 Pulse 92 05/10/19 07:34 Resp 18 05/10/19 02:47 BP 125/69 05/10/19 02:47 Pulse Ox 90 L 05/10/19 07:22 Intake & Output 05/09/19 05/10/19 05/10/19 18:59 06:59 18:59 Intake Total 2110 1250 Output Total 825 800 Balance 1285 450 Intake: IV 2110 Intake, IV Titration 1250 Amount Sodium Chloride 0.9% 1, 350 000 ml @ 100 mls/hr IV . Q10H [facility] Rx#:[id number] Sodium Chloride 0.9% 100 900 ml @ 0 mls/hr IV .STK-MED ONE with ceFAZolin 2,000 mg Rx#:[id number] Output: Urine 725 800 Estimated Blood Loss 100 Other: Voiding Method Indwelling Catheter - Exam Review of Systems Constitutional: Denies poor appetite, Denies chills, Denies fatigue, Denies fever, Denies lethargy, Denies malaise, Denies weight loss Eyes: denies blurred vision, denies pain Ears, nose, mouth and throat: Denies dysphagia, Denies headache, Denies nasal congestion, Denies nasal discharge, Denies sore throat, Denies vertigo Cardiovascular: Denies chest pain, Denies decreased exercise tolerance, Denies dyspnea on exertion, Denies edema, Denies shortness of breath Respiratory: Denies cough, Denies cough with sputum, reports chronic dyspnea, Denies excessive sputum, Denies hemoptysis, reports home oxygen, Denies respiratory infections, Denies wheezing Gastrointestinal: Denies abdominal pain, denies constipation, denies loss of appetite, denies nausea, Denies diarrhea, Denies vomiting Genitourinary: Denies dysuria, Denies urinary hesitancy, Denies urinary retention Musculoskeletal: Denies frequent falls, Denies gait dysfunction, Denies muscle weakness, Denies myalgias Integumentary: Denies pruritus, Denies rash, Denies wounds Neurological: Denies change in mentation, Denies change in speech, Denies numbness, Denies weakness Psychiatric: Denies anxiety, Denies depression Endocrine: Denies fatigue, Denies weight change Physical Exam Gen: This is a 69-year-old male. Patient is resting in bed and appears to be comfortable and in no acute distress. HEENT: Head is atraumatic, normocephalic. Pupils equal, round. Sclerae is anicteric. NG tube in place draining brown fluid. NECK: Supple. No JVD. No lymphadenopathy. No thyromegaly. LUNGS: Clear to auscultation. No wheezes or rhonchi. No intercostal retractions. HEART: Regular rate and rhythm. No murmur. ABDOMEN: Soft. Bowel sounds are normal. No masses. No tenderness. Dressing midline has small amount of dried blood. No active bleeding noted. Ileostomy with small amount of stool in ostomy bag. EXTREMITIES: No pedal edema. No calf tenderness. Dorsalis pedis +2 bilaterally. NEUROLOGICAL: Patient is awake, alert and oriented x3. Cranial nerves 2 through 12 are grossly intact. - Labs CBC & Chem 7: 05/07/19 06:22 05/08/19 06:14 Labs: Abnormal Lab Results - Last 24 Hours (Table) 05/09/19 05/09/19 05/09/19 Range/Units 11:56 17:14 20:05 POC Glucose (mg/dL) 135 H 124 H 132 H (75-99) mg/dL Microbiology - Last 24 Hours (Table) 05/06/19 08:28 Blood Culture - Preliminary Blood No Growth after 72 hours Assessment and Plan Plan: 1. Acute kidney injury most likely secondary to dehydration, hypotension and Lotrel, resolved. Continue IV fluids 100 mL per hour, recheck BMP in the morning. Hold metformin. 2. Hyperkalemia secondary to acute kidney injury, resolved. 3. Metabolic acidosis secondary to renal failure, resolved. Continue IV fluids. 4. Leukocytosis with no signs of infection most likely reactive. 5. History of recent partial small bowel obstruction. Postop day #1 exploratory laparotomy, lysis of extensive adhesions and repair of parastomal hernia. 6. Hypertension. Blood pressure medication will be slowly resumed. 7. COPD without exacerbation. Continue DuoNeb treatments scheduled 3 times daily and as needed, Symbicort twice daily. 8. Hyperlipidemia. Continue pravastatin 10 mg every 48 hours. 9. History of ulcerative colitis status post ileostomy with history of revision. 10. Tobacco use and dependence. 11. Generalized anxiety disorder and recurrent depression. Continue Xanax 1 mg 3 times daily as needed 8. GI prophylaxis. Protonix. 9. DVT prophylaxis. Heparin subcu. Discharge plan: Return home. Impression and plan of care have been directed as dictated by the signing physician. Shweta Hong nurse practitioner acting as scribe for signing physician.
--- NOTE | 2019-05-10 13:59 | P.PN ---
Subjective Progress Note Date: 05/10/19 CHIEF COMPLAINT: Small bowel obstruction HISTORY OF PRESENT ILLNESS: 69-year-old male who is status post exploratory laparotomy, lysis of adhesions, and repair of parastomal hernia. Postop day #1. Patient examined at the bedside with Dr. Liz. Patient states his pain is tolerable. Epidural is infusing. Ostomy with liquid stool noted. PHYSICAL EXAM: VITAL SIGNS: Reviewed. GENERAL: Well-developed in no acute distress. HEENT: No sclera icterus. Extraocular movements grossly intact. Moist buccal mucosa. Head is atraumatic, normocephalic. ABDOMEN: Soft. Nondistended. Dressing clean dry and intact. Ostomy with liquid stool noted. NEUROLOGIC: Alert and oriented. Cranial nerves II through XII grossly intact. ASSESSMENT: 1. Small bowel obstruction, status post exploratory laparotomy, lysis of adhe sions, and repair of parastomal hernia PLAN: -Pain control. Continue epidural. Discontinue postop day #3 -Continue Moore catheter while epidural in place -Advance diet to full liquids -Incentive spirometer -Activity as tolerated Nurse practitioner note has been reviewed by physician. Signing provider agrees with the documented findings, assessment, and plan of care. Objective - Vital Signs Vital signs: Vital Signs Temp 99.5 F 05/10/19 07:00 Pulse 88 05/10/19 13:39 Resp 17 05/10/19 07:00 BP 126/67 05/10/19 07:00 Pulse Ox 90 L 05/10/19 07:22 Intake & Output 05/09/19 05/10/19 05/10/19 18:59 06:59 18:59 Intake Total 2110 1250 Output Total 825 800 Balance 1285 450 Intake: IV 2110 Intake, IV Titration 1250 Amount Sodium Chloride 0.9% 1, 350 000 ml @ 100 mls/hr IV . Q10H [facility] Rx#:[id number] Sodium Chloride 0.9% 100 900 ml @ 0 mls/hr IV .STK-MED ONE with ceFAZolin 2,000 mg Rx#:[id number] Output: Urine 725 800 Estimated Blood Loss 100 Other: Voiding Method Indwelling Catheter Indwelling Catheter - Labs CBC & Chem 7: 05/07/19 06:22 05/08/19 06:14 Labs: Abnormal Lab Results - Last 24 Hours (Table) 05/09/19 05/09/19 05/10/19 Range/Units 17:14 20:05 11:39 POC Glucose (mg/dL) 124 H 132 H 100 H (75-99) mg/dL Microbiology - Last 24 Hours (Table) 05/06/19 08:28 Blood Culture - Preliminary Blood No Growth after 96 hours
[2019-05-10 16:37] LABS: Glucose,Whole Blood 85 mg/dL (75-99)
[2019-05-10] MEDS: ACETAMINOPHEN TAB 325 MG TAB PO PRN (16:43)
[2019-05-10] MEDS: ROPIVACAINE 250 MG, HYDROMORPHONE (PF) 5 MG in SODIUM CHLORIDE 0.9% 200 ML EPIDURAL PRN (16:53)
[2019-05-10 20:19] LABS: Glucose,Whole Blood 117 mg/dL (75-99)
[2019-05-11] MEDS: LEVOTHYROXINE 25 MCG TAB PO SCH (05:16)
[2019-05-11 06:58] LABS: Glucose,Whole Blood 114 mg/dL (75-99)
[2019-05-11 07:02] LABS: HCT 42.3 % (39.0-53.0); HGB 13.4 gm/dL (13.0-17.5); MCHC 31.8 g/dL (31.0-37.0); MCV 91.1 fL (80.0-100.0); Mean Platelet Volume 7.5; Platelet Count 225 k/uL (150-450); RBC 4.64 m/uL (4.30-5.90); RDW 13.5 % (11.5-15.5); WBC 17.6 k/uL (3.8-10.6)
[2019-05-11] MEDS: INSULIN ASPART (NovoLOG) 100 UNIT/ML VIAL SQ SCH ×4 (07:02→21:40)
[2019-05-11 07:20] LABS: ALT 32 U/L (4-49); AST 51 U/L (17-59); African American GFR (CKD) >90 (>60 ml/min/1.73 sqM); Alkaline Phosphatase 67 U/L (38-126); Anion Gap 5 mmol/L; Blood Urea Nitrogen 17 mg/dL (9-20); Calcium 8.1 mg/dL (8.4-10.2); Carbon Dioxide 22 mmol/L (22-30); Chloride 112 mmol/L (98-107); Glucose 97 mg/dL (74-99); Non-African American GFR(CKD) >90 (>60 ml/min/1.73 sqM); Sodium 139 mmol/L (137-145); Total Bilirubin 0.7 mg/dL (0.2-1.3); Total Protein 5.9 g/dL (6.3-8.2)
[2019-05-11] MEDS: PANTOPRAZOLE 40 MG TABLET PO SCH (07:40)
[2019-05-11] MEDS: buPROPion SR 100 MG TABLET.ER PO SCH (07:40)
[2019-05-11] MEDS: ISOSORBIDE MONONITRATE ER 30 MG TAB.ER.24H PO SCH (07:40)
[2019-05-11] MEDS: VIT A,C & E-LUTEIN-MINERALS 1 EACH TAB PO SCH (07:40)
[2019-05-11] MEDS: PRAVASTATIN SODIUM 20 MG TAB PO SCH (07:41)
[2019-05-11] MEDS: FLUoxetine HCL 20 MG CAP PO SCH (07:41)
[2019-05-11] MEDS: HEPARIN SODIUM,PORCINE 5,000 UNIT/ML 1 ML VIAL SQ SCH ×2 (07:42→21:40)
--- NOTE | 2019-05-11 07:56 | P.PN ---
Progress Note - Text Progress Note Date: 05/11/19 Patient doing well. Ambulating. Pain 4-6/10, but appears uncomfortable. Denies headache or leg weakness. Denies pruritis. Epidural @ 6 ml/hr VSS Back - epidural site c/d A/P POD#2 s/p ex lap, ostomy - titrate up epidural rate
[2019-05-11] MEDS: PIPERACILLIN-TAZOBACTAM 3.375 GM in SODIUM CHLORIDE 0.9% 100 ML IVPB SCH ×2 (08:10→15:38)
[2019-05-11] MEDS: SODIUM CHLORIDE 0.9% 1,000 ML IV SCH (08:11)
[2019-05-11] MEDS: IPRATROPIUM-ALBUTEROL 3 ML NEB INHALATION SCH ×3 (08:41→19:05)
[2019-05-11] MEDS: SYMBICORT 160-4.5 MCG INHALER INHALATION SCH ×2 (08:41→19:05)
[2019-05-11] MEDS ORDERED: TAMSULOSIN 0.4 MG CAP.ER.24H PO STA (10:08)
[2019-05-11] MEDS ORDERED: HYDROcodone/APAP 5-325MG 1 EACH TAB PO PRN (10:14)
--- NOTE | 2019-05-11 10:14 | P.PN ---
Subjective Progress Note Date: 05/11/19 CHIEF COMPLAINT: Small bowel obstruction HISTORY OF PRESENT ILLNESS: 69-year-old male who is status post exploratory laparotomy, lysis of adhesions, and repair of parastomal hernia. Postop day #2. Patient examined at the bedside with Dr. Liz. Patient is awake and alert. He is confused this morning. Pulled out his IV. Attempting to pull out other lines and tubes. Epidural was turned down this AM, but confusion persists. Ostomy with liquid stool. WBC 17.6. Patient with low grade temperature and mild tachycardia overnight. PHYSICAL EXAM: VITAL SIGNS: Reviewed. GENERAL: Well-developed in no acute distress. HEENT: No sclera icterus. Extraocular movements grossly intact. Moist buccal mucosa. Head is atraumatic, normocephalic. ABDOMEN: Soft. Nondistended. Dressing clean dry and intact. Ostomy with liquid stool noted. NEUROLOGIC: Alert and oriented. Cranial nerves II through XII grossly intact. ASSESSMENT: 1. Small bowel obstruction, status post exploratory laparotomy, lysis of adhesions, and repair of parastomal hernia PLAN: -Discontinue epidural today per Dr. Liz. Wait 4 hours from last heparin dose -Discontinue turner after epidural removed. Flomax x 1 dose -IV Tylenol ordered x 4 doses. -Continue diet as tolerated -Incentive spirometer -Activity as tolerated -Monitor WBC. May be reactive. However with patients low grade temperature and mild tachycardia overnight, will begin empiric antibiotics in the form of Zosyn. Repeat CBC daily. Nurse practitioner note has been reviewed by physician. Signing provider agrees with the documented findings, assessment, and plan of care. Objective - Vital Signs Vital signs: Vital Signs Temp 98.9 F 05/11/19 07:00 Pulse 84 05/11/19 08:54 Resp 18 05/11/19 01:59 BP 157/76 05/11/19 07:00 Pulse Ox 92 L 05/11/19 07:00 Intake & Output 05/10/19 05/11/19 05/11/19 18:59 06:59 18:59 Intake Total 446.6 16.333 Output Total 500 825 550 Balance -500 -378.4 -533.667 Intake: Intake, IV Titration 446.6 16.333 Amount Ropivacaine 250 mg 96.6 16.333 Hydromorphone (Pf) 5 mg In Sodium Chloride 0.9% 200 ml @ Per Protocol EPIDURAL .Q0M PRN Rx#: [id number] Sodium Chloride 0.9% 1, 350 000 ml @ 100 mls/hr IV . Q10H [facility] Rx#:[id number] Output: Urine 500 625 550 Uretheral (Turner) 550 Urine/Stool Mix 200 Other: Voiding Method Indwelling Catheter Indwelling Catheter Indwelling Catheter - Labs CBC & Chem 7: 05/11/19 06:32 05/11/19 06:32 Labs: Abnormal Lab Results - Last 24 Hours (Table) 05/10/19 05/10/19 05/11/19 Range/Units 11:39 20:17 06:32 WBC 17.6 H (3.8-10.6) k/uL Chloride (98-107) mmol/L POC Glucose (mg/dL) 100 H 117 H (75-99) mg/dL Calcium (8.4-10.2) mg/dL Total Protein (6.3-8.2) g/dL Albumin (3.5-5.0) g/dL 05/11/19 05/11/19 Range/Units 06:32 06:51 WBC (3.8-10.6) k/uL Chloride 112 H (98-107) mmol/L POC Glucose (mg/dL) 114 H (75-99) mg/dL Calcium 8.1 L (8.4-10.2) mg/dL Total Protein 5.9 L (6.3-8.2) g/dL Albumin 3.0 L (3.5-5.0) g/dL Microbiology - Last 24 Hours (Table) 05/06/19 08:28 Blood Culture - Preliminary Blood No Growth after 96 hours
[2019-05-11] MEDS: ACETAMINOPHEN IV (For NPO) 1,000 MG in EMPTY BAG 1 BAG IVPB SCH ×2 (11:29→17:15)
[2019-05-11 11:39] LABS: Glucose,Whole Blood 120 mg/dL (75-99)
--- NOTE | 2019-05-11 12:55 | P.PN ---
Subjective Progress Note Date: 05/11/19 This is a 69-year-old male patient of Dr. Angeles, Dr. Painter, Dr. Morel past medical history of diabetes mellitus type 2, hypertension, COPD with FEV1 40% without O2 or prednisone dependence, hypothyroidism, ulcerative colitis status post ileostomy initially done [address] Danielson with revision done [address] Liz, tobacco use and dependence, generalized anxiety disorder and recurrent depression. Patient had a recent hospitalization April 16 through April 19 which time he was treated for partial small bowel obstruction secondary to parastomal hernia. Patient was discharged home with plan to follow-up with Dr. Liz and be scheduled for hernia repair at a later date. Patient was brought into the hospital today for scheduled surgery and while in the preop area, patient developed chest pain and dyspnea. Pain was a pressure type sensation but shortness of breath was at his baseline as patient states he has underlying emphysema and he is at his baseline. Patient was found to be tachycardic and hypotensive and was taken to the emergency center for evaluation. Blood pressure 86/56, heart rate 93, afebrile, pulse ox 90% on room air. EKG was a normal sinus rhythm with no acute ST-T wave changes. Elizabeth BC 15.4, hemoglobin 16.8, platelet count 320. Sodium 136, potassium 5.3, chloride 108, CO2 17, BUN 18, creatinine 1.67, blood sugar 218, liver function tests within normal limits, lactic acid initially 2.3, troponin negative. Chest x-ray shows subsegmental atelectatic changes, possible scarring. Patient has been admitted to the Med[facility] floor under the care of Dr. Liz and surgery has been rescheduled for Thursday. Patient has been started on IV fluids and Lotrel held. Patient states that he has been eating and drinking without any difficulty and appetite has been good. He denies any new respiratory symptoms. At time of evaluation, patient denies having any chest pain. 05/06: Pulse rate is much better, blood pressure has improved significantly, his kidney function and potassium are a lot better today patient has improved hem odynamically, blood sugar still mildly elevated only continue IV hydration his surgery was delayed apparently until at least Thursday is doing well might be able to do his surgery on Thursday. 05/07: Patient's pulse rate is under control his creatinine has improved significantly increased urine output this point patient is less dehydrated is not having any abdominal pain and as of today surgery scheduled for early tomorrow morning. 05/08: Patient is afebrile, heart rate 80, blood pressure 171/92, pulse ox 95% on room air. Patient is nothing by mouth for support to a laparotomy repair of peristomal hernia scheduled for today. 05/09: Yesterday, patient underwent exploratory laparotomy, lysis of extensive adhesions and repair of parastomal hernia by Dr. Liz. Pathology report is pending. Epidural is in place for pain control. Patient has been afebrile, heart rate 88, blood pressure 125/69, pulse ox 90% on room air. Incentive spirometry added. Patient states that he has no pain. He does have output in his ostomy bag. Moore catheter is drained clear stephane urine. Patient to start a full liquid diet for lunch today. Repeat lab work has been ordered for tomorrow. 05/10: Patient had episode of confusion this morning he pulled his IV and tried to pull out Moore. His epidural is to be titrated down and discontinued later today. Moore catheter will less also be removed. At the time of evaluation. Patient's mental status is back to baseline but he complains of feeling very w eak. Pain is controlled. He states he is eating okay without any nausea or vomiting. He is currently on a full liquid diet. Patient is afebrile, heart rate 84, blood pressure 157/76, pulse ox 92% on room air. Repeat lab work reveals WBC 17.6, hemoglobin 13.4. Lactate lites in renal function normal. Blood sugar running between 97 and 117. Blood culture no growth. Objective - Vital Signs Vital signs: Vital Signs Temp 98.9 F 05/11/19 07:00 Pulse 84 05/11/19 08:54 Resp 18 05/11/19 01:59 BP 157/76 05/11/19 07:00 Pulse Ox 92 L 05/11/19 07:00 Intake & Output 05/10/19 05/11/19 05/11/19 18:59 06:59 18:59 Intake Total 446.6 8.8 Output Total 500 825 Balance -500 -378.4 8.8 Intake: Intake, IV Titration 446.6 8.8 Amount Ropivacaine 250 mg 96.6 8.8 Hydromorphone (Pf) 5 mg In Sodium Chloride 0.9% 200 ml @ Per Protocol EPIDURAL .Q0M PRN Rx#: [id number] Sodium Chloride 0.9% 1, 350 000 ml @ 100 mls/hr IV . Q10H [facility] Rx#:[id number] Output: Urine 500 625 Urine/Stool Mix 200 Other: Voiding Method Indwelling Catheter Indwelling Catheter - Exam Review of Systems Constitutional: Denies poor appetite, Denies chills, Denies fatigue, Denies fever, Denies lethargy, Denies malaise, Denies weight loss, reports generalized weakness Eyes: denies blurred vision, denies pain Ears, nose, mouth and throat: Denies dysphagia, Denies headache, Denies nasal congestion, Denies nasal discharge, Denies sore throat, Denies vertigo Cardiovascular: Denies chest pain, Denies decreased exercise tolerance, Denies dyspnea on exertion, Denies edema, Denies shortness of breath Respiratory: Denies cough, Denies cough with sputum, reports chronic dyspnea, Denies excessive sputum, Denies hemoptysis, reports home oxygen, Denies respiratory infections, Denies wheezing Gastrointestinal: Denies abdominal pain, denies constipation, denies loss of appetite, denies nausea, Denies diarrhea, Denies vomiting Genitourinary: Denies dysuria, Denies urinary hesitancy, Denies urinary re tention. Moore in place. Musculoskeletal: Denies frequent falls, Denies gait dysfunction, Denies muscle weakness, Denies myalgias Integumentary: Denies pruritus, Denies rash, Denies wounds Neurological: Denies change in mentation, Denies change in speech, Denies numbness, Denies weakness Psychiatric: Denies anxiety, Denies depression Endocrine: Denies fatigue, Denies weight change Physical Exam Gen: This is a 69-year-old male. Patient is resting in bed and appears to be comfortable and in no acute distress. HEENT: Head is atraumatic, normocephalic. Pupils equal, round. Sclerae is anicteric. NECK: Supple. No JVD. No lymphadenopathy. No thyromegaly. LUNGS: Clear to auscultation. No wheezes or rhonchi. No intercostal retr actions. HEART: Regular rate and rhythm. No murmur. ABDOMEN: Soft. Bowel sounds are normal. No masses. No tenderness. Dressing midline dry and intact. No active bleeding noted. Ileostomy with small amount of liquid stool in ostomy bag. EXTREMITIES: No pedal edema. No calf tenderness. Dorsalis pedis +2 bilaterally. NEUROLOGICAL: Patient is awake, alert and oriented x3. Cranial nerves 2 through 12 are grossly intact. - Labs CBC & Chem 7: 05/11/19 06:32 05/11/19 06:32 Labs: Abnormal Lab Results - Last 24 Hours (Table) 05/10/19 05/10/19 05/11/19 Range/Units 11:39 20:17 06:32 WBC 17.6 H (3.8-10.6) k/uL Chloride (98-107) mmol/L POC Glucose (mg/dL) 100 H 117 H (75-99) mg/dL Calcium (8.4-10.2) mg/dL Total Protein (6.3-8.2) g/dL Albumin (3.5-5.0) g/dL 05/11/19 05/11/19 Range/Units 06:32 06:51 WBC (3.8-10.6) k/uL Chloride 112 H (98-107) mmol/L POC Glucose (mg/dL) 114 H (75-99) mg/dL Calcium 8.1 L (8.4-10.2) mg/dL Total Protein 5.9 L (6.3-8.2) g/dL Albumin 3.0 L (3.5-5.0) g/dL Microbiology - Last 24 Hours (Table) 05/06/19 08:28 Blood Culture - Preliminary Blood No Growth after 96 hours Assessment and Plan Plan: 1. Acute kidney injury most likely secondary to dehydration, hypotension and Lotrel, resolved. Hold metformin. 2. Hyperkalemia secondary to acute kidney injury, resolved. 3. Metabolic acidosis secondary to renal failure, resolved. Continue IV fluids. 4. Leukocytosis with no signs of infection most likely reactive. 5. History of recent partial small bowel obstruction. Postop day #1 exploratory laparotomy, lysis of extensive adhesions and repair of parastomal hernia. 6. Hypertension. Amlodipine 2.5 mg resumed. 7. COPD without exacerbation. Continue DuoNeb treatments scheduled 3 times daily and as needed, Symbicort twice daily. 8. Hyperlipidemia. Continue pravastatin 10 mg every 48 hours. 9. History of ulcerative colitis status post ileostomy with history of revision. 10. Tobacco use and dependence. 11. Generalized anxiety disorder and recurrent depression. Continue Xanax 1 mg 3 times daily as needed 8. GI prophylaxis. Protonix. 9. DVT prophylaxis. Heparin subcu. 10. Acute delirium secondary to epidural, perioperative medications. Epidural will be discontinued today. Monitor mental status. Discharge plan: Return home. Impression and plan of care have been directed as dictated by the signing physician. Shweta Hong nurse practitioner acting as scribe for signing physician.
[2019-05-11] MEDS: amLODIPine 2.5 MG TAB PO SCH (14:24)
[2019-05-11] MEDS: ACETAMINOPHEN TAB 325 MG TAB PO PRN (19:40)
[2019-05-11 20:29] LABS: Glucose,Whole Blood 131 mg/dL (75-99)
[2019-05-11] MEDS: ALPRAZolam 1 MG TAB PO PRN (22:50)
[2019-05-12] MEDS: SODIUM CHLORIDE 0.9% 1,000 ML IV SCH ×4 (01:51→23:25)
[2019-05-12] MEDS: ACETAMINOPHEN IV (For NPO) 1,000 MG in EMPTY BAG 1 BAG IVPB SCH ×2 (01:53→04:39)
[2019-05-12] MEDS: PIPERACILLIN-TAZOBACTAM 3.375 GM in SODIUM CHLORIDE 0.9% 100 ML IVPB SCH ×4 (01:54→23:25)
[2019-05-12] MEDS: ALPRAZolam 1 MG TAB PO PRN (05:20)
[2019-05-12] MEDS: LEVOTHYROXINE 25 MCG TAB PO SCH (05:20)
[2019-05-12 06:55] LABS: Glucose,Whole Blood 109 mg/dL (75-99)
[2019-05-12] MEDS: INSULIN ASPART (NovoLOG) 100 UNIT/ML VIAL SQ SCH ×4 (07:16→20:15)
[2019-05-12] MEDS: PANTOPRAZOLE 40 MG TABLET PO SCH (07:34)
[2019-05-12] MEDS: FLUoxetine HCL 20 MG CAP PO SCH (07:34)
[2019-05-12] MEDS: buPROPion SR 100 MG TABLET.ER PO SCH (07:34)
[2019-05-12] MEDS: amLODIPine 2.5 MG TAB PO SCH (07:34)
[2019-05-12] MEDS: ISOSORBIDE MONONITRATE ER 30 MG TAB.ER.24H PO SCH (07:34)
[2019-05-12] MEDS: HEPARIN SODIUM,PORCINE 5,000 UNIT/ML 1 ML VIAL SQ SCH ×4 (07:34→23:24)
[2019-05-12] MEDS: VIT A,C & E-LUTEIN-MINERALS 1 EACH TAB PO SCH (07:34)
[2019-05-12 07:54] LABS: Basophils % (A) 0 %; Eosinophils # (A) 0.2 k/uL (0-0.7); Eosinophils % (A) 1 %; HCT 40.5 % (39.0-53.0); HGB 13.4 gm/dL (13.0-17.5); Lymphocytes # (A) 1.5 k/uL (1.0-4.8); Lymphocytes % (A) 11 %; MCH 30.1 pg (25.0-35.0); MCHC 33.2 g/dL (31.0-37.0); MCV 90.7 fL (80.0-100.0); Mean Platelet Volume 7.3; Monocytes # (A) 0.7 k/uL (0-1.0); Monocytes % (A) 5 %; Neutrophils % (A) 80 %; Platelet Count 263 k/uL (150-450); RBC 4.47 m/uL (4.30-5.90); RDW 13.2 % (11.5-15.5); WBC 13.7 k/uL (3.8-10.6)
[2019-05-12] MEDS: SYMBICORT 160-4.5 MCG INHALER INHALATION SCH (08:22)
[2019-05-12] MEDS: IPRATROPIUM-ALBUTEROL 3 ML NEB INHALATION SCH ×4 (08:22→20:13)
--- NOTE | 2019-05-12 10:22 | CDI ---
Documentation Clarification Form Date: 05/12/2019 09:41:16 AM From: Chani Helm RN CCDS Admit Date: 05/06/2019 10:00:00 AM Patient Name: Kalen Freeman Visit Number: [id number] Discharge Date: ATTENTION: The Clinical Documentation Specialists (CDI) and [facility] Coding Staff appreciate your assistance in clarifying documentation. Please respond to the clarification below the line at the bottom and electronically sign. The CDI & [facility] Coding staff will review the response and follow-up if needed. Please note: Queries are made part of the Legal Health Record. If you have any questions, please contact the author of this message via ITS. Dr. Vincenzo West Episode of confusion this morning has been documented in the Internal Medicine progress note 05/10 History/Risk Factors: 69-year-old male presents to [facility] for elective parastomal hernia surgery. Medical history Asthma, Angina, COPD, DM, HTN and Ulcerative Colitis. Clinical Indicators: VSS 05/10 07:00 157/76 90 98.9 92% 2L Per the Internal medicine progress note 05/10 patient had episode of confusion this morning he pulled his IV and tried to pull out Moore. Labs: 05/10 Wbc 17.6, Carbon dioxide 112, Calcium 8.1, Total Protein 5.9, Albumin 3.0 Treatment: Orders 05/10 Discontinue Epidural, In your professional opinion, please clarify the etiology of the Confusion, if known. * Toxic Encephalopathy due to Epidural * Other condition (please specify) * Unable to determine (Last Revision: May 2017) 05/11 Acute Delirium and Toxic Encephalopathy secondary to epidural, perioperative medications. Epidural was discontinued. documented 05/11 by ISMA Hong/Dr. Brett ADKINS
[2019-05-12 10:58] VITALS: BMI 28.6
--- NOTE | 2019-05-12 11:07 | P.PN ---
Subjective Progress Note Date: 05/12/19 This is a 69-year-old male patient of Dr. Angeles, Dr. Painter, Dr. Morel past medical history of diabetes mellitus type 2, hypertension, COPD with FEV1 40% without O2 or prednisone dependence, hypothyroidism, ulcerative colitis status post ileostomy initially done [address] Danielson with revision done [address] Liz, tobacco use and dependence, generalized anxiety disorder and recurrent depression. Patient had a recent hospitalization April 16 through April 19 which time he was treated for partial small bowel obstruction secondary to parastomal hernia. Patient was discharged home with plan to follow-up with Dr. Liz and be scheduled for hernia repair at a later date. Patient was brought into the hospital today for scheduled surgery and while in the preop area, patient developed chest pain and dyspnea. Pain was a pressure type sensation but shortness of breath was at his baseline as patient states he has underlying emphysema and he is at his baseline. Patient was found to be tachycardic and hypotensive and was taken to the emergency center for evaluation. Blood pressure 86/56, heart rate 93, afebrile, pulse ox 90% on room air. EKG was a normal sinus rhythm with no acute ST-T wave changes. Elizabeth BC 15.4, hemoglobin 16.8, platelet count 320. Sodium 136, potassium 5.3, chloride 108, CO2 17, BUN 18, creatinine 1.67, blood sugar 218, liver function tests within normal limits, lactic acid initially 2.3, troponin negative. Chest x-ray shows subsegmental atelectatic changes, possible scarring. Patient has been admitted to the [facility] floor under the care of Dr. Liz and surgery has been rescheduled for Thursday. Patient has been started on IV fluids and Lotrel held. Patient states that he has been eating and drinking without any difficulty and appetite has been good. He denies any new respiratory symptoms. At time of evaluation, patient denies having any chest pain. 05/06: Pulse rate is much better, blood pressure has improved significantly, his kidney function and potassium are a lot better today patient has improved hem odynamically, blood sugar still mildly elevated only continue IV hydration his surgery was delayed apparently until at least Thursday is doing well might be able to do his surgery on Thursday. 05/07: Patient's pulse rate is under control his creatinine has improved significantly increased urine output this point patient is less dehydrated is not having any abdominal pain and as of today surgery scheduled for early tomorrow morning. 05/08: Patient is afebrile, heart rate 80, blood pressure 171/92, pulse ox 95% on room air. Patient is nothing by mouth for support to a laparotomy repair of peristomal hernia scheduled for today. 05/09: Yesterday, patient underwent exploratory laparotomy, lysis of extensive adhesions and repair of parastomal hernia by Dr. Liz. Pathology report is pending. Epidural is in place for pain control. Patient has been afebrile, heart rate 88, blood pressure 125/69, pulse ox 90% on room air. Incentive spirometry added. Patient states that he has no pain. He does have output in his ostomy bag. Moore catheter is drained clear stephane urine. Patient to start a full liquid diet for lunch today. Repeat lab work has been ordered for tomorrow. 05/10: Patient had episode of confusion this morning he pulled his IV and tried to pull out Moore. His epidural is to be titrated down and discontinued later today. Moore catheter will less also be removed. At the time of evaluation. Patient's mental status is back to baseline but he complains of feeling very w eak. Pain is controlled. He states he is eating okay without any nausea or vomiting. He is currently on a full liquid diet. Patient is afebrile, heart rate 84, blood pressure 157/76, pulse ox 92% on room air. Repeat lab work reveals WBC 17.6, hemoglobin 13.4. Lactate lites in renal function normal. Blood sugar running between 97 and 117. Blood culture no growth. 05/11: Patient has been afebrile. Temperature max 99.4, heart rate 93, blood pressure 162/84, pulse ox 94% on room air. Repeat CBC reveals white count of 13.7, hemoglobin 13.4, platelet count 263. Blood sugars running between 109 and 131. Patient continued to significant confusion during the night and into the morning. At the time of our evaluation, he does seem to be somewhat improved and back to his baseline. Patient is able to answer questions appropriately. Patient is having output from ostomy. Patient is cleared for medicine for discharge home. Patient may resume metformin and Lotrel at home. Objective - Vital Signs Vital signs: Vital Signs Temp 99.4 F 05/12/19 07:30 Pulse 93 05/12/19 07:44 Resp 18 05/12/19 07:44 BP 162/84 05/12/19 07:30 Pulse Ox 94 L 05/12/19 07:30 Intake & Output 05/11/19 05/12/19 05/12/19 18:59 06:59 18:59 Intake Total 16.333 300 Output Total 1450 425 Balance -1433.667 -125 Intake: Intake, IV Titration 16.333 Amount Ropivacaine 250 mg 16.333 Hydromorphone (Pf) 5 mg In Sodium Chloride 0.9% 200 ml @ Per Protocol EPIDURAL .Q0M PRN Rx#: [id number] Oral 300 Output: Urine 1050 Uretheral (Moore) 650 Stool 400 425 Other: Voiding Method Indwelling Catheter # Voids 1 1 - Exam Review of Systems Constitutional: Denies poor appetite, Denies chills, Denies fatigue, Denies fever, Denies lethargy, Denies malaise, Denies weight loss, reports generalized weakness Eyes: denies blurred vision, denies pain Ears, nose, mouth and throat: Denies dysphagia, Denies headache, Denies nasal congestion, Denies nasal discharge, Denies sore throat, Denies vertigo Cardiovascular: Denies chest pain, Denies decreased exercise tolerance, Denies dyspnea on exertion, Denies edema, Denies shortness of breath Respiratory: Denies cough, Denies cough with sputum, reports chronic dyspnea, Denies excessive sputum, Denies hemoptysis, reports home oxygen, Denies respiratory infections, Denies wheezing Gastrointestinal: Denies abdominal pain, denies constipation, denies loss of appetite, denies nausea, Denies diarrhea, Denies vomiting Genitourinary: Denies dysuria, Denies urinary hesitancy, Denies urinary retention. Musculoskeletal: Denies frequent falls, Denies gait dysfunction, Denies muscle weakness, Denies myalgias Integumentary: Denies pruritus, Denies rash, Denies wounds Neurological: Denies change in mentation, Denies change in speech, Denies numbness, Denies weakness Psychiatric: Denies anxiety, Denies depression Endocrine: Denies fatigue, Denies weight change Physical Exam Gen: This is a 69-year-old male. Patient is resting in bed and appears to be comfortable and in no acute distress. HEENT: Head is atraumatic, normocephalic. Pupils equal, round. Sclerae is anicteric. NECK: Supple. No JVD. No lymphadenopathy. No thyromegaly. LUNGS: Clear to auscultation. No wheezes or rhonchi. No intercostal retractions. HEART: Regular rate and rhythm. No murmur. ABDOMEN: Soft. Bowel sounds are normal. No masses. No tenderness. Dressing midline dry and intact. No active bleeding noted. Ileostomy with small amount of liquid stool in ostomy bag. EXTREMITIES: No pedal edema. No calf tenderness. Dorsalis pedis +2 bilaterally. NEUROLOGICAL: Patient is awake, alert and oriented x3. Patient is able to answer all questions appropriately. He is able to recall the date of his surgery, date and time, location. Cranial nerves 2 through 12 are grossly intact. - Labs CBC & Chem 7: 05/12/19 07:36 05/11/19 06:32 Labs: Abnormal Lab Results - Last 24 Hours (Table) 05/11/19 05/11/19 05/12/19 Range/Units 11:38 20:26 06:54 WBC (3.8-10.6) k/uL Neutrophils # (1.3-7.7) k/uL POC Glucose (mg/dL) 120 H 131 H 109 H (75-99) mg/dL 05/12/19 Range/Units 07:36 WBC 13.7 H (3.8-10.6) k/uL Neutrophils # 11.0 H (1.3-7.7) k/uL POC Glucose (mg/dL) (75-99) mg/dL Microbiology - Last 24 Hours (Table) 05/06/19 08:28 Blood Culture - Preliminary Blood No Growth after 120 hours Assessment and Plan Plan: 1. Acute kidney injury most likely secondary to dehydration, hypotension and Lotrel, resolved. Patient may resume Lotrel and metformin at time of discharge. 2. Hyperkalemia secondary to acute kidney injury, resolved. 3. Metabolic acidosis secondary to renal failure, resolved. 4. Leukocytosis with no signs of infection most likely reactive. 5. History of recent partial small bowel obstruction. Status post exploratory laparotomy, lysis of extensive adhesions and repair of parastomal hernia. 6. Hypertension. Amlodipine 2.5 mg resumed. 7. COPD without exacerbation. Continue DuoNeb treatments scheduled 3 times daily and as needed, Symbicort twice daily. 8. Hyperlipidemia. Continue pravastatin 10 mg every 48 hours. 9. History of ulcerative colitis status post ileostomy with history of revision. 10. Tobacco use and dependence. 11. Generalized anxiety disorder and recurrent depression. Continue Xanax 1 mg 3 times daily as needed 8. GI prophylaxis. Protonix. 9. DVT prophylaxis. Heparin subcu. 10. Acute delirium and toxic encephalopathy secondary to epidural, perioperative medications. Epidural was discontinued. Monitor mental status. Discharge plan: Return home. Impression and plan of care have been directed as dictated by the signing physician. Shweta Hong nurse practitioner acting as scribe for signing physician.
[2019-05-12 11:33] LABS: Glucose,Whole Blood 109 mg/dL (75-99)
--- NOTE | 2019-05-12 12:27 | P.PN ---
Subjective Progress Note Date: 05/12/19 CHIEF COMPLAINT: Small bowel obstruction HISTORY OF PRESENT ILLNESS: 69-year-old male who is status post exploratory laparotomy, lysis of adhesions, and repair of parastomal hernia. Postop day #3. Patient examined at the bedside with Dr. Liz. Patient is able to answer some questions appropriately such as the year and his location. However, patient is also making multiple statements do not make sense. He appears paranoid towards other staff members. He believes he was at congregational yesterday and thinks his sister is waiting for him down the hallway. Epidural was discontinued yesterday. He has not been receiving narcotic pain medications. He denies abd ominal pain. He is tolerating diet. No nausea or vomiting. He appears short of breath during examination. Patient does report dyspnea. PHYSICAL EXAM: VITAL SIGNS: Reviewed. GENERAL: Well-developed in no acute distress. HEENT: No sclera icterus. Extraocular movements grossly intact. Moist buccal mucosa. Head is atraumatic, normocephalic. ABDOMEN: Soft. Nondistended. Dressing clean dry and intact. Ostomy with liquid stool noted. NEUROLOGIC: Alert and oriented x 2-3. However mental status is not at baseline. Cranial nerves II through XII grossly intact. ASSESSMENT: 1. Small bowel obstruction, status post exploratory laparotomy, lysis of adh esions, and repair of parastomal hernia PLAN: -Advance diet -Incentive spirometer -Activity as tolerated -Continue IV antibiotics -Consult pulmonary for evaluation per Dr. Liz and obtain chest xray Nurse practitioner note has been reviewed by physician. Signing provider agrees with the documented findings, assessment, and plan of care. Objective - Vital Signs Vital signs: Vital Signs Temp 99.4 F 05/12/19 07:30 Pulse 93 05/12/19 07:44 Resp 18 05/12/19 07:44 BP 162/84 05/12/19 07:30 Pulse Ox 94 L 05/12/19 07:30 Intake & Output 05/11/19 05/12/19 05/12/19 18:59 06:59 18:59 Intake Total 16.333 300 Output Total 1450 425 Balance -1433.667 -125 Weight 93.213 kg Intake: Intake, IV Titration 16.333 Amount Ropivacaine 250 mg 16.333 Hydromorphone (Pf) 5 mg In Sodium Chloride 0.9% 200 ml @ Per Protocol EPIDURAL .Q0M PRN Rx#: [id number] Oral 300 Output: Urine 1050 Uretheral (Moore) 650 Stool 400 425 Other: Voiding Method Indwelling Catheter # Voids 1 1 # Bowel Movements 1 - Labs CBC & Chem 7: 05/12/19 07:36 05/11/19 06:32 Labs: Abnormal Lab Results - Last 24 Hours (Table) 05/11/19 05/12/19 05/12/19 Range/Units 20:26 06:54 07:36 WBC 13.7 H (3.8-10.6) k/uL Neutrophils # 11.0 H (1.3-7.7) k/uL POC Glucose (mg/dL) 131 H 109 H (75-99) mg/dL 05/12/19 Range/Units 11:31 WBC (3.8-10.6) k/uL Neutrophils # (1.3-7.7) k/uL POC Glucose (mg/dL) 109 H (75-99) mg/dL Microbiology - Last 24 Hours (Table) 05/06/19 08:28 Blood Culture - Final Blood No Growth after 144 hours
--- NOTE | 2019-05-12 12:53 | XR ---
EXAMINATION TYPE: XR chest 2V DATE OF EXAM: 05/12/2019 COMPARISON: Chest x-ray 6 days ago. HISTORY: Shortness of breath TECHNIQUE: Frontal and lateral views of the chest are obtained. FINDINGS: There is new right hilar linear opacity favoring atelectasis. There are new small to tiny bilateral pleural effusions with blunting of posterior lateral costophrenic angles and associated lef t basilar linear atelectasis and/or infiltrate. Patchy new right basilar opacity noted below linear o pacity in The cardiac silhouette size is mildly enlarged with ectatic and atherosclerotic aorta. IV C filter right mid abdominal level. The osseous structures are demineralized. Mild to moderate chroni c compression type fracture at roughly T8 level. IMPRESSION: Findings consistent with CHF exacerbation as there is cardiomegaly with small to tiny bi lateral pleural effusions now identified.. Additional areas of bilateral lower lung atelectasis and/o r infiltrate noted.
[2019-05-12] MEDS ORDERED: IPRATROPIUM-ALBUTEROL 3 ML NEB INHALATION PRN (14:34)
--- NOTE | 2019-05-12 15:00 | CONS ---
CONSULTATION PULMONARY/CRITICAL CARE CONSULTATION: DATE OF SERVICE: 05/12/2019 REASON FOR CONSULTATION: Shortness of breath. This is a 69-year-old male who was admitted way back on May 06, 2019. Patient apparently had a parastomal hernia repair, exploratory laparotomy, and lysis of adhesions on 05/08. The patient has a previous history of long-standing colostomy because of ulcerative colitis. Anyway, we were consulted to see the patient because he has developed some shortness of breath. He does have underlying COPD from 40 years of tobacco use. He actually sees my partner, Dr. Morel. He apparently has 40% lung function. That would put him in stage III chronic lung disease. He apparently uses a combination of nebulizer medications and inhalers at home. Anyway, the patient states that since he had surgery, 3 days ago or so, he has been a bit more short of breath. The shortness of breath is mostly occurring when he is up walking around and exerting himself. Not really when he is sitting or lying in bed. He denies any significant cough or phlegm production. There is no fever or chills. There is no chest pain or chest discomfort. The patient is a bit crackly. He tells me he is wheezing. Anyway, we were asked to see him because of that. Before the surgery, he was doing well. . ALLERGIES: Denied. HOME MEDICATIONS: Include metformin, bupropion, amlodipine/benazepril combination, Spiriva, pravastatin, nystatin, Mycostatin cream, nitroglycerin tablets, multivitamins, levothyroxine, Imdur, Prozac, calcium and vitamin D, vitamins, Ocuvite vitamins, Symbicort, aspirin, ascorbic acid, albuterol inhaler, albuterol updrafts, and Xanax. PAST MEDICAL HISTORY: Positive for COPD, severe, stage III, with an FEV1 that is 40% of predicted, angina pectoris, diabetes mellitus, hyperlipidemia, hypertension, and hypothyroidism. The patient also has a history of irregular heartbeat, poor circulation in his feet, previous episode of ileostomy/colostomy because of ulcerative colitis, and chronic recurrent parastomal hernia. SURGICAL HISTORY: Includes bowel resection, cholecystectomy, heart catheterization, ileostomy, and parastomal hernia repair in the past. SOCIAL HISTORY: Positive for ongoing tobacco use. He apparently smokes a quarter pack a day still. He denies any significant alcohol or illicit drug use. FAMILY HISTORY: Positive for father with DVT, cancer and COPD and myocardial infarction. Has a sister with cancer and CVA. That sister also apparently had ulcerative colitis, and required ileostomy. Has a brother that passed from tongue cancer and another one who is alive without major medical problems. Mother has a history of diabetes, chronic renal disease who at age 83. REVIEW OF SYSTEMS: CONSTITUTIONAL: Negative. NEUROLOGIC: Negative. HEENT: Negative. CARDIOVASCULAR: Negative. PULMONARY: Shortness of breath, dyspnea on exertion with wheezing and crackling in the chest. GI: Abdominal pain from recent surgery. : Negative. RHEUMATOLOGIC: Negative. IMMUNOLOGIC: Negative. ENDOCRINOLOGIC: Negative. DERMATOLOGIC: Negative. Current vital signs are reviewed, temperature is 99.4, heart rate 93, respiratory rate 18, blood pressure 162/84, room air saturation 94%. Appears in no acute distress. Mildly tachypneic and dyspneic. Mild conversational dyspnea. No audible wheezing or use of accessory muscles. HEENT: Examination is grossly unremarkable. Mucous membranes are moist. Nasal O2 noted. NECK: Supple, full range of motion. No adenopathy, thyromegaly or neck vein distention. CARDIOVASCULAR: Examination reveals regular rhythm and rate. S1, S2 normal. No S3, S4, or murmur. LUNGS: Reveal really silent breath sounds. A few scattered expiratory rhonchi and wheezes. Breath sounds equal bilaterally but breath sounds are diminished profoundly throughout. No crackles. ABDOMEN: Soft. Some mild tenderness noted. Colostomy bag in place. There is a midline incision. EXTREMITIES: Intact. No cyanosis, clubbing, or edema. SKIN: Without rash. NEUROLOGIC: Examination is brief but nonfocal. LABS: Reviewed. White count 13.7, hemoglobin adequate. Platelet count all normal. A chest x-ray done today shows some fluid in the minor fissure on the right. It gives the appearance of a pseudotumor. In addition, he may have some patchy atelectasis or infiltrate in the right lung. Nothing major, though. Medications are reviewed. On focusing now on his respiratory medications, he is on albuterol updrafts, Symbicort, DuoNeb updrafts, and some antibiotic. ASSESSMENT: 1. Chronic obstructive pulmonary disease exacerbation in a patient with severe/stage III COPD, with an FEV1 that is 40% of predicted. 2. Postoperative day #3 status post exploratory laparotomy, lysis of adhesions, and parastomal hernia repair. 3. Prior history of ileostomy, secondary to ulcerative colitis. 4. Multiple other medical problems and comorbidities as listed above. PLAN: The patient will get DuoNeb q.i.d. and p.r.n. Will discontinue the Symbicort in favor of Pulmicort 1 mg along with Perforomist 20 mcg twice a day. Finally, I will him a few doses of IV corticosteroids. Additional recommendations and suggestions are forthcoming. Will follow along. Prognosis is guarded. MMODL / IJN: [id number] /
[2019-05-12 17:10] LABS: Glucose,Whole Blood 151 mg/dL (75-99)
[2019-05-12] MEDS: methylPREDNISolone SOD SUCCI 125 MG/2 ML VIAL IV SCH ×2 (17:29→23:24)
[2019-05-12] MEDS: BUDESONIDE 1 MG/2 ML NEBU INHALATION SCH (20:13)
[2019-05-12] MEDS: FORMOTEROL FUMARATE 20 MCG/2 ML NEBU INHALATION SCH (20:13)
[2019-05-13] MEDS: methylPREDNISolone SOD SUCCI 125 MG/2 ML VIAL IV SCH ×4 (04:46→23:40)
[2019-05-13] MEDS: LEVOTHYROXINE 25 MCG TAB PO SCH (05:03)
[2019-05-13 06:54] LABS: Glucose,Whole Blood 124 mg/dL (75-99)
[2019-05-13 07:10] LABS: Glucose,Whole Blood 111 mg/dL (75-99)
[2019-05-13 07:45] LABS: Basophils % (A) 0 %; Eosinophils # (A) 0.4 k/uL (0-0.7); Eosinophils % (A) 3 %; HCT 39.6 % (39.0-53.0); Lymphocytes # (A) 1.5 k/uL (1.0-4.8); Lymphocytes % (A) 13 %; MCH 29.2 pg (25.0-35.0); MCHC 32.7 g/dL (31.0-37.0); MCV 89.3 fL (80.0-100.0); Mean Platelet Volume 7.4; Monocytes # (A) 0.8 k/uL (0-1.0); Monocytes % (A) 7 %; Neutrophils # (A) 8.8 k/uL (1.3-7.7); Neutrophils % (A) 76 %; Platelet Count 293 k/uL (150-450); RBC 4.44 m/uL (4.30-5.90); RDW 13.5 % (11.5-15.5); WBC 11.7 k/uL (3.8-10.6)
[2019-05-13] MEDS: INSULIN ASPART (NovoLOG) 100 UNIT/ML VIAL SQ SCH ×4 (07:49→21:36)
[2019-05-13] MEDS: FORMOTEROL FUMARATE 20 MCG/2 ML NEBU INHALATION SCH ×2 (07:50→20:52)
[2019-05-13] MEDS: IPRATROPIUM-ALBUTEROL 3 ML NEB INHALATION SCH ×4 (07:50→20:50)
[2019-05-13] MEDS: BUDESONIDE 1 MG/2 ML NEBU INHALATION SCH ×2 (07:50→20:50)
[2019-05-13] MEDS: PRAVASTATIN SODIUM 20 MG TAB PO SCH (08:28)
[2019-05-13] MEDS: amLODIPine 2.5 MG TAB PO SCH (08:29)
[2019-05-13] MEDS: ISOSORBIDE MONONITRATE ER 30 MG TAB.ER.24H PO SCH (08:29)
[2019-05-13] MEDS: FLUoxetine HCL 20 MG CAP PO SCH (08:29)
[2019-05-13] MEDS: PANTOPRAZOLE 40 MG TABLET PO SCH (08:29)
[2019-05-13] MEDS: LISINOPRIL 10 MG TAB PO SCH (08:31)
[2019-05-13] MEDS: HEPARIN SODIUM,PORCINE 5,000 UNIT/ML 1 ML VIAL SQ SCH ×3 (08:32→23:41)
[2019-05-13] MEDS: PIPERACILLIN-TAZOBACTAM 3.375 GM in SODIUM CHLORIDE 0.9% 100 ML IVPB SCH ×4 (08:32→23:41)
[2019-05-13] MEDS: VIT A,C & E-LUTEIN-MINERALS 1 EACH TAB PO SCH (09:24)
[2019-05-13] MEDS: buPROPion SR 100 MG TABLET.ER PO SCH (09:24)
[2019-05-13] MEDS ORDERED: FUROSEMIDE 10 MG/ML 2 ML VIAL IV ONE (10:13)
[2019-05-13] MEDS ORDERED: ALPRAZolam 0.5 MG TAB PO PRN (10:14)
[2019-05-13] MEDS ORDERED: FUROSEMIDE 40 MG TAB PO STA (10:41)
[2019-05-13 11:47] LABS: Glucose,Whole Blood 128 mg/dL (75-99)
--- NOTE | 2019-05-13 11:52 | P.PN ---
Subjective Progress Note Date: 05/13/19 CHIEF COMPLAINT: Small bowel obstruction HISTORY OF PRESENT ILLNESS: 69-year-old male who is status post exploratory laparotomy, lysis of adhesions, and repair of parastomal hernia. Postop day #4. Patients mentation still not at his baseline, but improving. Tolerating diet. Ostomy with stool noted. Patient was refusing IV earlier but is now agreeable after speaking with Dr. Liz. PHYSICAL EXAM: VITAL SIGNS: Reviewed. GENERAL: Well-developed in no acute distress. HEENT: No sclera icterus. Extraocular movements grossly intact. Moist buccal mucosa. Head is atraumatic, normocephalic. ABDOMEN: Soft. Nondistended. Dressing clean dry and intact. Ostomy with liquid stool noted. NEUROLOGIC: Alert and oriented x 2-3. However mental status is not at baseline. Cranial nerves II through XII grossly intact. ASSESSMENT: 1. Small bowel obstruction, status post exploratory laparotomy, lysis of adhesions, and repair of parastomal hernia PLAN: -Continue diet -Incentive spirometer -Activity as tolerated -Continue IV antibiotics -Anticipate discharge when patients mentation is back to his baseline Nurse practitioner note has been reviewed by physician. Signing provider agrees with the documented findings, assessment, and plan of care. Objective - Vital Signs Vital signs: Vital Signs Temp 99.5 F 05/13/19 07:26 Pulse 88 05/13/19 08:11 Resp 17 05/13/19 08:15 BP 184/94 05/13/19 07:26 Pulse Ox 93 L 05/13/19 07:26 Intake & Output 05/12/19 05/13/19 05/13/19 18:59 06:59 18:59 Intake Total 668 Output Total 400 200 Balance 268 -200 Weight 93.213 kg Intake: Oral 668 Output: Stool 400 200 Other: Voiding Method Indwelling Catheter # Voids 1 2 # Bowel Movements 1 - Labs CBC & Chem 7: 05/13/19 06:17 05/11/19 06:32 Labs: Abnormal Lab Results - Last 24 Hours (Table) 05/12/19 05/12/19 05/13/19 Range/Units 17:05 20:12 06:17 WBC 11.7 H (3.8-10.6) k/uL Neutrophils # 8.8 H (1.3-7.7) k/uL POC Glucose (mg/dL) 151 H 124 H (75-99) mg/dL 05/13/19 05/13/19 Range/Units 07:08 11:46 WBC (3.8-10.6) k/uL Neutrophils # (1.3-7.7) k/uL POC Glucose (mg/dL) 111 H 128 H (75-99) mg/dL Microbiology - Last 24 Hours (Table) 05/06/19 08:28 Blood Culture - Final Blood No Growth after 144 hours
[2019-05-13] MEDS: SODIUM CHLORIDE 0.9% 1,000 ML IV SCH ×2 (12:20→21:37)
--- NOTE | 2019-05-13 12:23 | P.PN ---
Subjective Progress Note Date: 05/13/19 Principal diagnosis: Postoperative day #4, status post exploratory laparotomy, lysis of adhesions, parastomal hernia repair. Acute exacerbation of COPD The patient is seen today in 05/13/2019 in follow-up on the regular medical floor. He is awake and alert in no acute distress. He is breathing easier today compared to yesterday. He is maintaining O2 saturations in the 90s on 2 L/m per nasal cannula. He is postoperative day #4 of an exploratory laparotomy with lysis of adhesions and parasternal hernia repair. He did have a COPD exacerbation as well. He has stage III COPD with FEV1 value of 40% of predicted. Yesterday's chest x-ray revealed evidence of cardiomegaly and fluid volume overload with small tiny bilateral pleural effusions. There is also some atelectatic changes in the lung bases. Blood culture reveals no growth. White count 11.7. Hemoglobin 13.0. He is continued on DuoNeb inhalations, Pulmicort and Perforomist inhalations, IV Solu-Medrol. Antibiotics in the form of Zosyn. He was given additional Lasix 40 mg IVP today. Objective - Vital Signs Vital signs: Vital Signs Temp 99.5 F 05/13/19 07:26 Pulse 88 05/13/19 08:11 Resp 17 05/13/19 08:15 BP 184/94 05/13/19 07:26 Pulse Ox 93 L 05/13/19 07:26 Intake & Output 05/12/19 05/13/19 05/13/19 18:59 06:59 18:59 Intake Total 668 Output Total 400 200 Balance 268 -200 Weight 93.213 kg Intake: Oral 668 Output: Stool 400 200 Other: Voiding Method Indwelling Catheter # Voids 1 2 # Bowel Movements 1 - Exam GENERAL EXAM: Alert, pleasant 69-year-old gentleman, on 2 L nasal cannula comfortable in no apparent distress. HEAD: Normocephalic. EYES: Normal reaction of pupils, equal size. NOSE: Clear with pink turbinates. THROAT: No erythema or exudates. NECK: No masses, no JVD. CHEST: No chest wall deformity. LUNGS: Equal air entry with bilateral end expiratory wheeze, diminished. CVS: S1 and S2 normal with no audible murmur, regular rhythm. ABDOMEN: Dressing clean dry and intact. Ostomy with liquid stool noted. No hepatosplenomegaly, normal bowel sounds, no guarding or rigidity. SPINE: No scoliosis or deformity SKIN: No rashes CENTRAL NERVOUS SYSTEM: No focal deficits, tone is normal in all 4 extremities. EXTREMITIES: There is no peripheral edema. No clubbing, no cyanosis. Peripheral pulses are intact. - Labs CBC & Chem 7: 05/13/19 06:17 05/11/19 06:32 Labs: Abnormal Lab Results - Last 24 Hours (Table) 05/12/19 05/12/19 05/13/19 Range/Units 17:05 20:12 06:17 WBC 11.7 H (3.8-10.6) k/uL Neutrophils # 8.8 H (1.3-7.7) k/uL POC Glucose (mg/dL) 151 H 124 H (75-99) mg/dL 05/13/19 05/13/19 Range/Units 07:08 11:46 WBC (3.8-10.6) k/uL Neutrophils # (1.3-7.7) k/uL POC Glucose (mg/dL) 111 H 128 H (75-99) mg/dL Microbiology - Last 24 Hours (Table) 05/06/19 08:28 Blood Culture - Final Blood No Growth after 144 hours Assessment and Plan Assessment: 1 Status post post-exploratory laparotomy, lysis of adhesions and parastomal hernia repair. Postoperative day #4. 2 Acute exacerbation of severe Gold stage III chronic obstructive pulmonary disease with FEV1 value of 40% of predicted. 3 Prior history of ileostomy, secondary to ulcerative colitis. 4 Hypertension. 5 Hyperlipidemia. 6 Hypothyroidism. 7 Diabetes mellitus. 8 History of angina Plan: The patient was seen and evaluated by Dr. Mayo Continue current pulmonary medications Titrate FiO2 as tolerated We'll continue to follow I, the cosigning physician, performed a history & physical examination of the patient. Lungs sounds with bilateral end expiratory wheeze, diminished. Maintaining good O2 saturations in the 90s on 2 L/m per nasal cannula. I discussed the assessment and plan of care with my nurse practitioner, Kenzie Perry. I attest to the above note as dictated by her.
--- NOTE | 2019-05-13 12:33 | P.PN ---
Subjective Progress Note Date: 05/13/19 This is a 69-year-old male patient of Dr. Angeles, Dr. Painter, Dr. Morel past medical history of diabetes mellitus type 2, hypertension, COPD with FEV1 40% without O2 or prednisone dependence, hypothyroidism, ulcerative colitis status post ileostomy initially done [address] Danielson with revision done [address] Liz, tobacco use and dependence, generalized anxiety disorder and recurrent depression. Patient had a recent hospitalization April 16 through April 19 which time he was treated for partial small bowel obstruction secondary to parastomal hernia. Patient was discharged home with plan to follow-up with Dr. Liz and be scheduled for hernia repair at a later date. Patient was brought into the hospital today for scheduled surgery and while in the preop area, patient developed chest pain and dyspnea. Pain was a pressure type sensation but shortness of breath was at his baseline as patient states he has underlying emphysema and he is at his baseline. Patient was found to be tachycardic and hypotensive and was taken to the emergency center for evaluation. Blood pressure 86/56, heart rate 93, afebrile, pulse ox 90% on room air. EKG was a normal sinus rhythm with no acute ST-T wave changes. Elizabeth BC 15.4, hemoglobin 16.8, platelet count 320. Sodium 136, potassium 5.3, chloride 108, CO2 17, BUN 18, creatinine 1.67, blood sugar 218, liver function tests within normal limits, lactic acid initially 2.3, troponin negative. Chest x-ray shows subsegmental atelectatic changes, possible scarring. Patient has been admitted to the [facility] floor under the care of Dr. Liz and surgery has been rescheduled for Thursday. Patient has been started on IV fluids and Lotrel held. Patient states that he has been eating and drinking without any difficulty and appetite has been good. He denies any new respiratory symptoms. At time of evaluation, patient denies having any chest pain. 05/06: Pulse rate is much better, blood pressure has improved significantly, his kidney function and potassium are a lot better today patient has improved hem odynamically, blood sugar still mildly elevated only continue IV hydration his surgery was delayed apparently until at least Thursday is doing well might be able to do his surgery on Thursday. 05/07: Patient's pulse rate is under control his creatinine has improved significantly increased urine output this point patient is less dehydrated is not having any abdominal pain and as of today surgery scheduled for early tomorrow morning. 05/08: Patient is afebrile, heart rate 80, blood pressure 171/92, pulse ox 95% on room air. Patient is nothing by mouth for support to a laparotomy repair of peristomal hernia scheduled for today. 05/09: Yesterday, patient underwent exploratory laparotomy, lysis of extensive adhesions and repair of parastomal hernia by Dr. Liz. Pathology report is pending. Epidural is in place for pain control. Patient has been afebrile, heart rate 88, blood pressure 125/69, pulse ox 90% on room air. Incentive spirometry added. Patient states that he has no pain. He does have output in his ostomy bag. Moore catheter is drained clear stephane urine. Patient to start a full liquid diet for lunch today. Repeat lab work has been ordered for tomorrow. 05/10: Patient had episode of confusion this morning he pulled his IV and tried to pull out Moore. His epidural is to be titrated down and discontinued later today. Moore catheter will less also be removed. At the time of evaluation. Patient's mental status is back to baseline but he complains of feeling very w eak. Pain is controlled. He states he is eating okay without any nausea or vomiting. He is currently on a full liquid diet. Patient is afebrile, heart rate 84, blood pressure 157/76, pulse ox 92% on room air. Repeat lab work reveals WBC 17.6, hemoglobin 13.4. Lactate lites in renal function normal. Blood sugar running between 97 and 117. Blood culture no growth. 05/11: Patient has been afebrile. Temperature max 99.4, heart rate 93, blood pressure 162/84, pulse ox 94% on room air. Repeat CBC reveals white count of 13.7, hemoglobin 13.4, platelet count 263. Blood sugars running between 109 and 131. Patient continued to significant confusion during the night and into the morning. At the time of our evaluation, he does seem to be somewhat improved and back to his baseline. Patient is able to answer questions appropriately. Patient is having output from ostomy. Patient is cleared for medicine for discharge home. Patient may resume metformin and Lotrel at home. 05/12: Patient is afebrile, heart rate 111, blood pressure 184/94, pulse ox 94% on 2 L nasal cannula. YAEL inhibitor will be resumed. WBC 11.7, hemoglobin 13, platelet count 293. Blood sugars running 111-151. Patient continues to have confusion and not back to his baseline. Chest x-ray consistent with heart failure exacerbation, cardiomegaly with small tiny bilateral pleural effusions. One dose of IV Lasix was ordered but patient has not had a IV access for 24 hours as he had pulled out his IV. This was changed to oral 40 mg 1. Patient has been seen by Dr. Mayo from pulmonary medicine and was started on Perforomist, Pulmicort, DuoNeb treatments for COPD exacerbation. Objective - Vital Signs Vital signs: Vital Signs Temp 99.5 F 05/13/19 07:26 Pulse 84 05/13/19 07:50 Resp 17 05/13/19 07:26 BP 184/94 05/13/19 07:26 Pulse Ox 93 L 05/13/19 07:26 Intake & Output 05/12/19 05/13/19 05/13/19 18:59 06:59 18:59 Intake Total 668 Output Total 400 Balance 268 Weight 93.213 kg Intake: Oral 668 Output: Stool 400 Other: Voiding Method Indwelling Catheter # Voids 1 2 # Bowel Movements 1 - Exam Review of Systems Constitutional: Denies poor appetite, Denies chills, Denies fatigue, Denies fever, Denies lethargy, Denies malaise, Denies weight loss, reports generalized weakness Eyes: denies blurred vision, denies pain Ears, nose, mouth and throat: Denies dysphagia, Denies headache, Denies nasal congestion, Denies nasal discharge, Denies sore throat, Denies vertigo Cardiovascular: Denies chest pain, Denies decreased exercise tolerance, Denies dyspnea on exertion, Denies edema, Denies shortness of breath Respiratory: Denies cough, Denies cough with sputum, reports chronic dyspnea, Denies excessive sputum, Denies hemoptysis, reports home oxygen, Denies respiratory infections, Denies wheezing Gastrointestinal: Denies abdominal pain, denies constipation, denies loss of appetite, denies nausea, Denies diarrhea, Denies vomiting Genitourinary: Denies dysuria, Denies urinary hesitancy, Denies urinary retention. Musculoskeletal: Denies frequent falls, Denies gait dysfunction, Denies muscle w eakness, Denies myalgias Integumentary: Denies pruritus, Denies rash, Denies wounds Neurological: Reports change in mentation-not back to baseline, Denies change in speech, Denies numbness, Denies weakness Psychiatric: Denies anxiety, Denies depression Endocrine: Denies fatigue, Denies weight change Physical Exam Gen: This is a 69-year-old male. Patient is resting in bed and appears to be comfortable and in no acute distress. HEENT: Head is atraumatic, normocephalic. Pupils equal, round. Sclerae is anicteric. NECK: Supple. No JVD. No lymphadenopathy. No thyromegaly. LUNGS: Clear to auscultation. Expiratory wheezes. No intercostal retractions. HEART: Regular rate and rhythm. No murmur. ABDOMEN: Soft. Bowel sounds are normal. No masses. No tenderness. Dressing midline dry and intact. No active bleeding noted. Ileostomy with small amount of liquid stool in ostomy bag. EXTREMITIES: No pedal edema. No calf tenderness. Dorsalis pedis +2 b ilaterally. NEUROLOGICAL: Patient is awake, alert and oriented x3. Patient is able to answer all questions appropriately. He is able to recall the date of his surgery, date and time, location. Cranial nerves 2 through 12 are grossly intact. - Labs CBC & Chem 7: 05/13/19 06:17 05/11/19 06:32 Labs: Abnormal Lab Results - Last 24 Hours (Table) 05/12/19 05/12/19 05/12/19 Range/Units 11:31 17:05 20:12 WBC (3.8-10.6) k/uL Neutrophils # (1.3-7.7) k/uL POC Glucose (mg/dL) 109 H 151 H 124 H (75-99) mg/dL 05/13/19 05/13/19 Range/Units 06:17 07:08 WBC 11.7 H (3.8-10.6) k/uL Neutrophils # 8.8 H (1.3-7.7) k/uL POC Glucose (mg/dL) 111 H (75-99) mg/dL Microbiology - Last 24 Hours (Table) 05/06/19 08:28 Blood Culture - Final Blood No Growth after 144 hours Assessment and Plan Plan: 1. Acute kidney injury most likely secondary to dehydration, hypotension and Lotrel, resolved. Patient may resume metformin at time of discharge. 2. Hyperkalemia secondary to acute kidney injury, resolved. 3. Metabolic acidosis secondary to renal failure, resolved. 4. Leukocytosis with no signs of infection most likely reactive. 5. History of recent partial small bowel obstruction. Status post exploratory laparotomy, lysis of extensive adhesions and repair of parastomal hernia. 6. Hypertension. Amlodipine 2.5 mg resumed. YAEL inhibitor resumed. 7. COPD with exacerbation. Patient has been seen by Dr. Mayo from pulmonary medicine and was started on Perforomist, Pulmicort, DuoNeb treatments. 8. Hyperlipidemia. Continue pravastatin 10 mg every 48 hours. 9. History of ulcerative colitis status post ileostomy with history of revision. 10. Tobacco use and dependence. 11. Generalized anxiety disorder and recurrent depression. Continue Xanax 1 mg 3 times daily as needed 8. GI prophylaxis. Protonix. 9. DVT prophylaxis. Heparin subcu. 10. Acute delirium and toxic encephalopathy secondary to epidural, perioperative medications. Epidural was discontinued. Monitor mental status. Discharge plan: Return home. Impression and plan of care have been directed as dictated by the signing physician. Shweta Hong nurse practitioner acting as scribe for signing ph ysician.
[2019-05-13] MEDS: ACETAMINOPHEN TAB 325 MG TAB PO PRN (16:27)
[2019-05-13 17:06] LABS: Glucose,Whole Blood 202 mg/dL (75-99)
[2019-05-13 20:01] LABS: Glucose,Whole Blood 221 mg/dL (75-99)
[2019-05-14] MEDS: LEVOTHYROXINE 25 MCG TAB PO SCH (05:55)
[2019-05-14] MEDS: methylPREDNISolone SOD SUCCI 125 MG/2 ML VIAL IV SCH ×2 (05:55→12:38)
[2019-05-14 07:31] LABS: Glucose,Whole Blood 176 mg/dL (75-99)
[2019-05-14] MEDS: IPRATROPIUM-ALBUTEROL 3 ML NEB INHALATION SCH ×4 (07:59→19:42)
[2019-05-14] MEDS: FORMOTEROL FUMARATE 20 MCG/2 ML NEBU INHALATION SCH ×2 (07:59→19:42)
[2019-05-14] MEDS: BUDESONIDE 1 MG/2 ML NEBU INHALATION SCH ×2 (07:59→19:42)
[2019-05-14] MEDS: PIPERACILLIN-TAZOBACTAM 3.375 GM in SODIUM CHLORIDE 0.9% 100 ML IVPB SCH ×3 (08:10→23:00)
[2019-05-14] MEDS: buPROPion SR 100 MG TABLET.ER PO SCH (08:11)
[2019-05-14] MEDS: VIT A,C & E-LUTEIN-MINERALS 1 EACH TAB PO SCH (08:11)
[2019-05-14] MEDS: PANTOPRAZOLE 40 MG TABLET PO SCH (08:11)
[2019-05-14] MEDS: FLUoxetine HCL 20 MG CAP PO SCH (08:11)
[2019-05-14] MEDS: amLODIPine 2.5 MG TAB PO SCH (08:11)
[2019-05-14] MEDS: ISOSORBIDE MONONITRATE ER 30 MG TAB.ER.24H PO SCH (08:11)
[2019-05-14] MEDS: HEPARIN SODIUM,PORCINE 5,000 UNIT/ML 1 ML VIAL SQ SCH ×3 (08:11→23:00)
[2019-05-14] MEDS: LISINOPRIL 10 MG TAB PO SCH (08:11)
[2019-05-14] MEDS: INSULIN ASPART (NovoLOG) 100 UNIT/ML VIAL SQ SCH ×4 (08:12→20:48)
[2019-05-14] MEDS: SODIUM CHLORIDE 0.9% 1,000 ML IV SCH ×2 (08:20→16:49)
--- NOTE | 2019-05-14 09:57 | P.PN ---
Progress Note - Text Progress Note Date: 05/14/19 The patient feels better. He is less confused. He has minimal pain. On exam his vital signs are stable. His abdomen soft. His ileostomy dysfunction. Status post repair of parastomal hernia and bowel obstruction. Patient's metabolic encephalopathy is improving. His congestive heart failure/pneumonia is improving as well. Patient will continue receive supportive care. We'll dysphagia discharged home on Thursday
[2019-05-14 11:56] LABS: Glucose,Whole Blood 215 mg/dL (75-99)
--- NOTE | 2019-05-14 12:02 | P.PN ---
Subjective Progress Note Date: 05/14/19 This is a 69-year-old male patient of Dr. Angeles, Dr. Painter, Dr. Morel past medical history of diabetes mellitus type 2, hypertension, COPD with FEV1 40% without O2 or prednisone dependence, hypothyroidism, ulcerative colitis status post ileostomy initially done [address] Danielson with revision done [address] Liz, tobacco use and dependence, generalized anxiety disorder and recurrent depression. Patient had a recent hospitalization April 16 through April 19 which time he was treated for partial small bowel obstruction secondary to parastomal hernia. Patient was discharged home with plan to follow-up with Dr. Liz and be scheduled for hernia repair at a later date. Patient was brought into the hospital today for scheduled surgery and while in the preop area, patient developed chest pain and dyspnea. Pain was a pressure type sensation but shortness of breath was at his baseline as patient states he has underlying emphysema and he is at his baseline. Patient was found to be tachycardic and hypotensive and was taken to the emergency center for evaluation. Blood pressure 86/56, heart rate 93, afebrile, pulse ox 90% on room air. EKG was a normal sinus rhythm with no acute ST-T wave changes. Elizabeth BC 15.4, hemoglobin 16.8, platelet count 320. Sodium 136, potassium 5.3, chloride 108, CO2 17, BUN 18, creatinine 1.67, blood sugar 218, liver function tests within normal limits, lactic acid initially 2.3, troponin negative. Chest x-ray shows subsegmental atelectatic changes, possible scarring. Patient has been admitted to the [facility] floor under the care of Dr. Liz and surgery has been rescheduled for Thursday. Patient has been started on IV fluids and Lotrel held. Patient states that he has been eating and drinking without any difficulty and appetite has been good. He denies any new respiratory symptoms. At time of evaluation, patient denies having any chest pain. 05/06: Pulse rate is much better, blood pressure has improved significantly, his kidney function and potassium are a lot better today patient has improved hem odynamically, blood sugar still mildly elevated only continue IV hydration his surgery was delayed apparently until at least Thursday is doing well might be able to do his surgery on Thursday. 05/07: Patient's pulse rate is under control his creatinine has improved significantly increased urine output this point patient is less dehydrated is not having any abdominal pain and as of today surgery scheduled for early tomorrow morning. 05/08: Patient is afebrile, heart rate 80, blood pressure 171/92, pulse ox 95% on room air. Patient is nothing by mouth for support to a laparotomy repair of peristomal hernia scheduled for today. 05/09: Yesterday, patient underwent exploratory laparotomy, lysis of extensive adhesions and repair of parastomal hernia by Dr. Liz. Pathology report is pending. Epidural is in place for pain control. Patient has been afebrile, heart rate 88, blood pressure 125/69, pulse ox 90% on room air. Incentive spirometry added. Patient states that he has no pain. He does have output in his ostomy bag. Moore catheter is drained clear stephane urine. Patient to start a full liquid diet for lunch today. Repeat lab work has been ordered for tomorrow. 05/10: Patient had episode of confusion this morning he pulled his IV and tried to pull out Moore. His epidural is to be titrated down and discontinued later today. Moore catheter will less also be removed. At the time of evaluation. Patient's mental status is back to baseline but he complains of feeling very w eak. Pain is controlled. He states he is eating okay without any nausea or vomiting. He is currently on a full liquid diet. Patient is afebrile, heart rate 84, blood pressure 157/76, pulse ox 92% on room air. Repeat lab work reveals WBC 17.6, hemoglobin 13.4. Lactate lites in renal function normal. Blood sugar running between 97 and 117. Blood culture no growth. 05/11: Patient has been afebrile. Temperature max 99.4, heart rate 93, blood pressure 162/84, pulse ox 94% on room air. Repeat CBC reveals white count of 13.7, hemoglobin 13.4, platelet count 263. Blood sugars running between 109 and 131. Patient continued to significant confusion during the night and into the morning. At the time of our evaluation, he does seem to be somewhat improved and back to his baseline. Patient is able to answer questions appropriately. Patient is having output from ostomy. Patient is cleared for medicine for discharge home. Patient may resume metformin and Lotrel at home. 05/12: Patient is afebrile, heart rate 111, blood pressure 184/94, pulse ox 94% on 2 L nasal cannula. YAEL inhibitor will be resumed. WBC 11.7, hemoglobin 13, platelet count 293. Blood sugars running 111-151. Patient continues to have confusion and not back to his baseline. Chest x-ray consistent with heart failure exacerbation, cardiomegaly with small tiny bilateral pleural effusions. One dose of IV Lasix was ordered but patient has not had a IV access for 24 hours as he had pulled out his IV. This was changed to oral 40 mg 1. Patient has been seen by Dr. Mayo from pulmonary medicine and was started on Perforomist, Pulmicort, DuoNeb treatments for COPD exacerbation. 05/13: Patient is sitting up in bed he is less confused today he denies any chest pain, shortness breath, he appears to be generally weak, his stoma is working, he has no nausea or vomiting he does not appear to be in any acute distress he seems to be getting back to his baseline. Discussed with general surgery the need to stay in the hospital until Thursday. Objective - Vital Signs Vital signs: Vital Signs Temp 98.1 F 05/14/19 05:00 Pulse 88 05/14/19 08:25 Resp 16 05/14/19 05:00 BP 143/83 05/14/19 05:00 Pulse Ox 93 L 05/14/19 05:00 Intake & Output 05/13/19 05/14/19 05/14/19 18:59 06:59 18:59 Intake Total 580 890 Output Total 200 950 Balance 380 -60 Intake: IV 300 Sodium Chloride 0.9% 1, 300 000 ml @ 100 mls/hr IV . Q10H [facility] Rx#:[id number] Oral 580 590 Output: Urine 650 Stool 200 300 Other: Voiding Method Urinal Urinal Incontinent # Voids 1 - Exam - Exam Review of Systems Constitutional: Denies poor appetite, Denies chills, Denies fatigue, Denies fever, Denies lethargy, Denies malaise, Denies weight loss, reports generalized weakness Eyes: denies blurred vision, denies pain Ears, nose, mouth and throat: Denies dysphagia, Denies headache, Denies nasal congestion, Denies nasal discharge, Denies sore throat, Denies vertigo Cardiovascular: Denies chest pain, Denies decreased exercise tolerance, Denies dyspnea on exertion, Denies edema, Denies shortness of breath Respiratory: Denies cough, Denies cough with sputum, reports chronic dyspnea, Denies excessive sputum, Denies hemoptysis, reports home oxygen, Denies respiratory infections, Denies wheezing Gastrointestinal: Denies abdominal pain, denies constipation, denies loss of appetite, denies nausea, Denies diarrhea, Denies vomiting Genitourinary: Denies dysuria, Denies urinary hesitancy, Denies urinary retention. Musculoskeletal: Denies frequent falls, Denies gait dysfunction, Denies muscle weakness, Denies myalgias Integumentary: Denies pruritus, Denies rash, Denies wounds Neurological: Reports change in mentation-not back to baseline, Denies change in speech, Denies numbness, Denies weakness Psychiatric: Denies anxiety, Denies depression Endocrine: Denies fatigue, Denies weight change Physical Exam Gen: This is a 69-year-old male. Patient is resting in bed and appears to be comfortable and in no acute distress. HEENT: Head is atraumatic, normocephalic. Pupils equal, round. Sclerae is anicteric. NECK: Supple. No JVD. No lymphadenopathy. No thyromegaly. LUNGS: Clear to auscultation. Expiratory wheezes. No intercostal retractions. HEART: Regular rate and rhythm. No murmur. ABDOMEN: Soft. Bowel sounds are normal. No masses. No tenderness. Dressing midline dry and intact. No active bleeding noted. Ileostomy with small amount of liquid stool in ostomy bag. EXTREMITIES: No pedal edema. No calf tenderness. Dorsalis pedis +2 bila terally. NEUROLOGICAL: Patient is awake, alert and oriented x3. Patient is able to answer all questions appropriately. He is able to recall the date of his surgery, date and time, location. Cranial nerves 2 through 12 are grossly intact. - Labs CBC & Chem 7: 05/13/19 06:17 05/11/19 06:32 Labs: Abnormal Lab Results - Last 24 Hours (Table) 05/13/19 05/13/19 05/13/19 Range/Units 11:46 17:05 19:56 POC Glucose (mg/dL) 128 H 202 H 221 H (75-99) mg/dL 05/14/19 Range/Units 07:29 POC Glucose (mg/dL) 176 H (75-99) mg/dL Assessment and Plan Assessment: Assessment and Plan Plan: 1. Acute kidney injury most likely secondary to dehydration, hypotension and Lotrel, resolved. Patient may resume metformin at time of discharge. 2. Hyperkalemia secondary to acute kidney injury, resolved. 3. Metabolic acidosis secondary to renal failure, resolved. 4. Leukocytosis with no signs of infection most likely reactive. 5. History of recent partial small bowel obstruction. Status post exploratory laparotomy, lysis of extensive adhesions and repair of parastomal hernia. 6. Hypertension. Amlodipine 2.5 mg resumed. YAEL inhibitor resumed. 7. COPD with exacerbation. Patient has been seen by Dr. Mayo from pulmonary medicine and was started on Perforomist, Pulmicort, DuoNeb treatments. 8. Hyperlipidemia. Continue pravastatin 10 mg every 48 hours. 9. History of ulcerative colitis status post ileostomy with history of revision. 10. Tobacco use and dependence. 11. Generalized anxiety disorder and recurrent depression. Continue Xanax 1 mg 3 times daily as needed 8. GI prophylaxis. Protonix. 9. DVT prophylaxis. Heparin subcu. 10. Acute delirium and toxic encephalopathy secondary to epidural, perioperative medications. Epidural was discontinued. Monitor mental status. Appears much better today. 11. Physical therapy evaluation, likely discharge home in the next 48 hours.
--- NOTE | 2019-05-14 14:07 | P.PN ---
Subjective Progress Note Date: 05/14/19 Principal diagnosis: Postoperative day #4, status post exploratory laparotomy, lysis of adhesions, parastomal hernia repair. Acute exacerbation of COPD The patient is seen today in 05/13/2019 in follow-up on the regular medical floor. He is awake and alert in no acute distress. He is breathing easier today compared to yesterday. He is maintaining O2 saturations in the 90s on 2 L/m per nasal cannula. He is postoperative day #4 of an exploratory laparotomy with lysis of adhesions and parasternal hernia repair. He did have a COPD exacerbation as well. He has stage III COPD with FEV1 value of 40% of predicted. Yesterday's chest x-ray revealed evidence of cardiomegaly and fluid volume overload with small tiny bilateral pleural effusions. There is also some atelectatic changes in the lung bases. Blood culture reveals no growth. White count 11.7. Hemoglobin 13.0. He is continued on DuoNeb inhalations, Pulmicort and Perforomist inhalations, IV Solu-Medrol. Antibiotics in the form of Zosyn. He was given additional Lasix 40 mg IVP today. The patient is seen today 05/14/2019 in follow-up on the regular medical floor. He is currently awake and alert in no acute distress. Maintaining O2 saturation in the mid 90s on 2 L/m per nasal cannula. He is afebrile. Hemodynamically stable. Blood culture reveals no growth. He remains on bronchodilators, Solu-M edrol, Zosyn. Objective - Vital Signs Vital signs: Vital Signs Temp 98.3 F 05/14/19 12:41 Pulse 106 H 05/14/19 12:41 Resp 16 05/14/19 12:41 BP 151/70 05/14/19 12:41 Pulse Ox 95 05/14/19 12:41 Intake & Output 05/13/19 05/14/19 05/14/19 18:59 06:59 18:59 Intake Total 580 890 Output Total 200 950 Balance 380 -60 Intake: IV 300 Sodium Chloride 0.9% 1, 300 000 ml @ 100 mls/hr IV . Q10H [facility] Rx#:[id number] Oral 580 590 Output: Urine 650 Stool 200 300 Other: Voiding Method Urinal Urinal Urinal Incontinent # Voids 1 - Exam GENERAL EXAM: Alert, pleasant 69-year-old gentleman, on 2 L nasal cannula comfortable in no apparent distress. HEAD: Normocephalic. EYES: Normal reaction of pupils, equal size. NOSE: Clear with pink turbinates. THROAT: No erythema or exudates. NECK: No masses, no JVD. CHEST: No chest wall deformity. LUNGS: Equal air entry with bilateral end expiratory wheeze, diminished. CVS: S1 and S2 normal with no audible murmur, regular rhythm. ABDOMEN: Dressing clean dry and intact. Ostomy with liquid stool noted. No hepatosplenomegaly, normal bowel sounds, no guarding or rigidity. SPINE: No scoliosis or deformity SKIN: No rashes CENTRAL NERVOUS SYSTEM: No focal deficits, tone is normal in all 4 extremities. EXTREMITIES: There is no peripheral edema. No clubbing, no cyanosis. Peripheral pulses are intact. - Labs CBC & Chem 7: 05/13/19 06:17 05/11/19 06:32 Labs: Abnormal Lab Results - Last 24 Hours (Table) 05/13/19 05/13/19 05/14/19 Range/Units 17:05 19:56 07:29 POC Glucose (mg/dL) 202 H 221 H 176 H (75-99) mg/dL 05/14/19 Range/Units 11:55 POC Glucose (mg/dL) 215 H (75-99) mg/dL Assessment and Plan Assessment: 1 Status post post-exploratory laparotomy, lysis of adhesions and parastomal hernia repair. Postoperative day #5. 2 Acute exacerbation of severe Gold stage III chronic obstructive pulmonary disease with FEV1 value of 40% of predicted. 3 Prior history of ileostomy, secondary to ulcerative colitis. 4 Hypertension. 5 Hyperlipidemia. 6 Hypothyroidism. 7 Diabetes mellitus. 8 History of angina Plan: The patient was seen and evaluated by Dr. Mayo Continue current pulmonary medications Decrease IV Solu-Medrol Fluids to KVO. Titrate FiO2 as tolerated We'll continue to follow I, the cosigning physician, performed a history & physical examination of the patient. Lungs sounds with bilateral end expiratory wheeze, diminished. Maintaining good O2 saturations in the 90s on 2 L/m per nasal cannula. I discussed the assessment and plan of care with my nurse practitioner, Kenzie Perry. I attest to the above note as dictated by her.
[2019-05-14 17:23] LABS: Glucose,Whole Blood 290 mg/dL (75-99)
[2019-05-14 20:16] LABS: Glucose,Whole Blood 273 mg/dL (75-99)
[2019-05-14] MEDS: methylPREDNISolone SOD SUCCI 40 MG/ML 1 ML VIAL IV SCH (20:49)
[2019-05-15] MEDS: methylPREDNISolone SOD SUCCI 40 MG/ML 1 ML VIAL IV SCH ×2 (04:06→13:27)
[2019-05-15] MEDS: LEVOTHYROXINE 25 MCG TAB PO SCH (05:34)
[2019-05-15 06:17] LABS: Basophils % (A) 0 %; Eosinophils % (A) 0 %; HCT 37.8 % (39.0-53.0); HGB 12.7 gm/dL (13.0-17.5); Lymphocytes % (A) 6 %; MCH 29.9 pg (25.0-35.0); MCHC 33.5 g/dL (31.0-37.0); MCV 89.4 fL (80.0-100.0); Monocytes # (A) 0.6 k/uL (0-1.0); Monocytes % (A) 3 %; Neutrophils # (A) 15.7 k/uL (1.3-7.7); Neutrophils % (A) 90 %; Platelet Count 344 k/uL (150-450); RBC 4.23 m/uL (4.30-5.90); RDW 13.9 % (11.5-15.5); WBC 17.4 k/uL (3.8-10.6)
[2019-05-15 06:29] LABS: ALT 88 U/L (4-49); AST 87 U/L (17-59); African American GFR (CKD) >90 (>60 ml/min/1.73 sqM); Alkaline Phosphatase 67 U/L (38-126); Anion Gap 5 mmol/L; Blood Urea Nitrogen 29 mg/dL (9-20); Calcium 8.5 mg/dL (8.4-10.2); Carbon Dioxide 26 mmol/L (22-30); Chloride 110 mmol/L (98-107); Glucose 175 mg/dL (74-99); Non-African American GFR(CKD) >90 (>60 ml/min/1.73 sqM); Potassium 3.5 mmol/L (3.5-5.1); Sodium 141 mmol/L (137-145); Total Bilirubin 0.6 mg/dL (0.2-1.3); Total Protein 5.8 g/dL (6.3-8.2)
[2019-05-15 07:16] LABS: Glucose,Whole Blood 185 mg/dL (75-99)
[2019-05-15] MEDS: FORMOTEROL FUMARATE 20 MCG/2 ML NEBU INHALATION SCH ×2 (08:05→18:51)
[2019-05-15] MEDS: IPRATROPIUM-ALBUTEROL 3 ML NEB INHALATION SCH ×4 (08:05→18:51)
[2019-05-15] MEDS: BUDESONIDE 1 MG/2 ML NEBU INHALATION SCH ×2 (08:05→18:51)
[2019-05-15] MEDS: PANTOPRAZOLE 40 MG TABLET PO SCH (09:23)
[2019-05-15] MEDS: LISINOPRIL 10 MG TAB PO SCH (09:23)
[2019-05-15] MEDS: ISOSORBIDE MONONITRATE ER 30 MG TAB.ER.24H PO SCH (09:23)
[2019-05-15] MEDS: FLUoxetine HCL 20 MG CAP PO SCH (09:23)
[2019-05-15] MEDS: INSULIN ASPART (NovoLOG) 100 UNIT/ML VIAL SQ SCH ×4 (09:24→21:00)
[2019-05-15] MEDS: PIPERACILLIN-TAZOBACTAM 3.375 GM in SODIUM CHLORIDE 0.9% 100 ML IVPB SCH ×3 (09:25→23:22)
[2019-05-15] MEDS: HEPARIN SODIUM,PORCINE 5,000 UNIT/ML 1 ML VIAL SQ SCH ×3 (09:25→23:22)
[2019-05-15] MEDS: PRAVASTATIN SODIUM 20 MG TAB PO SCH (09:26)
[2019-05-15] MEDS: buPROPion SR 100 MG TABLET.ER PO SCH (09:26)
[2019-05-15] MEDS: amLODIPine 2.5 MG TAB PO SCH (09:27)
[2019-05-15] MEDS: VIT A,C & E-LUTEIN-MINERALS 1 EACH TAB PO SCH (09:27)
--- NOTE | 2019-05-15 11:10 | P.PN ---
Progress Note - Text Progress Note Date: 05/15/19 The patient feels better today. He is less confused. His white count is 17,000. On exam his vital signs are stable. His abdomen is soft. Incision sites clean dry intact. Ileostomy dysfunction. Status post repair of paracolostomy hernia with small bowel obstruction. Patient metabolic encephalopathy is improved. His leukocytosis is still present. He'll be treated for pneumonia. We'll continue to follow him closely.
[2019-05-15 11:25] LABS: Glucose,Whole Blood 236 mg/dL (75-99)
--- NOTE | 2019-05-15 12:47 | P.PN ---
Subjective Progress Note Date: 05/15/19 This is a 69-year-old male patient of Dr. Angeles, Dr. Painter, Dr. Morel past medical history of diabetes mellitus type 2, hypertension, COPD with FEV1 40% without O2 or prednisone dependence, hypothyroidism, ulcerative colitis status post ileostomy initially done [address] Danielson with revision done [address] Liz, tobacco use and dependence, generalized anxiety disorder and recurrent depression. Patient had a recent hospitalization April 16 through April 19 which time he was treated for partial small bowel obstruction secondary to parastomal hernia. Patient was discharged home with plan to follow-up with Dr. Liz and be scheduled for hernia repair at a later date. Patient was brought into the hospital today for scheduled surgery and while in the preop area, patient developed chest pain and dyspnea. Pain was a pressure type sensation but shortness of breath was at his baseline as patient states he has underlying emphysema and he is at his baseline. Patient was found to be tachycardic and hypotensive and was taken to the emergency center for evaluation. Blood pressure 86/56, heart rate 93, afebrile, pulse ox 90% on room air. EKG was a normal sinus rhythm with no acute ST-T wave changes. Elizabeth BC 15.4, hemoglobin 16.8, platelet count 320. Sodium 136, potassium 5.3, chloride 108, CO2 17, BUN 18, creatinine 1.67, blood sugar 218, liver function tests within normal limits, lactic acid initially 2.3, troponin negative. Chest x-ray shows subsegmental atelectatic changes, possible scarring. Patient has been admitted to the [facility] floor under the care of Dr. Liz and surgery has been rescheduled for Thursday. Patient has been started on IV fluids and Lotrel held. Patient states that he has been eating and drinking without any difficulty and appetite has been good. He denies any new respiratory symptoms. At time of evaluation, patient denies having any chest pain. 05/06: Pulse rate is much better, blood pressure has improved significantly, his kidney function and potassium are a lot better today patient has improved hem odynamically, blood sugar still mildly elevated only continue IV hydration his surgery was delayed apparently until at least Thursday is doing well might be able to do his surgery on Thursday. 05/07: Patient's pulse rate is under control his creatinine has improved significantly increased urine output this point patient is less dehydrated is not having any abdominal pain and as of today surgery scheduled for early tomorrow morning. 05/08: Patient is afebrile, heart rate 80, blood pressure 171/92, pulse ox 95% on room air. Patient is nothing by mouth for support to a laparotomy repair of peristomal hernia scheduled for today. 05/09: Yesterday, patient underwent exploratory laparotomy, lysis of extensive adhesions and repair of parastomal hernia by Dr. Liz. Pathology report is pending. Epidural is in place for pain control. Patient has been afebrile, heart rate 88, blood pressure 125/69, pulse ox 90% on room air. Incentive spirometry added. Patient states that he has no pain. He does have output in his ostomy bag. Moore catheter is drained clear stephane urine. Patient to start a full liquid diet for lunch today. Repeat lab work has been ordered for tomorrow. 05/10: Patient had episode of confusion this morning he pulled his IV and tried to pull out Moore. His epidural is to be titrated down and discontinued later today. Moore catheter will less also be removed. At the time of evaluation. Patient's mental status is back to baseline but he complains of feeling very w eak. Pain is controlled. He states he is eating okay without any nausea or vomiting. He is currently on a full liquid diet. Patient is afebrile, heart rate 84, blood pressure 157/76, pulse ox 92% on room air. Repeat lab work reveals WBC 17.6, hemoglobin 13.4. Lactate lites in renal function normal. Blood sugar running between 97 and 117. Blood culture no growth. 05/11: Patient has been afebrile. Temperature max 99.4, heart rate 93, blood pressure 162/84, pulse ox 94% on room air. Repeat CBC reveals white count of 13.7, hemoglobin 13.4, platelet count 263. Blood sugars running between 109 and 131. Patient continued to significant confusion during the night and into the morning. At the time of our evaluation, he does seem to be somewhat improved and back to his baseline. Patient is able to answer questions appropriately. Patient is having output from ostomy. Patient is cleared for medicine for discharge home. Patient may resume metformin and Lotrel at home. 05/12: Patient is afebrile, heart rate 111, blood pressure 184/94, pulse ox 94% on 2 L nasal cannula. YAEL inhibitor will be resumed. WBC 11.7, hemoglobin 13, platelet count 293. Blood sugars running 111-151. Patient continues to have confusion and not back to his baseline. Chest x-ray consistent with heart failure exacerbation, cardiomegaly with small tiny bilateral pleural effusions. One dose of IV Lasix was ordered but patient has not had a IV access for 24 hours as he had pulled out his IV. This was changed to oral 40 mg 1. Patient has been seen by Dr. Mayo from pulmonary medicine and was started on Perforomist, Pulmicort, DuoNeb treatments for COPD exacerbation. 05/13: Patient is sitting up in bed he is less confused today he denies any chest pain, shortness breath, he appears to be generally weak, his stoma is working, he has no nausea or vomiting he does not appear to be in any acute distress he seems to be getting back to his baseline. Discussed with general surgery the need to stay in the hospital until Thursday. 05/14: Patient sitting up in bed in no apparent distress, he is less confused he is back toline he uses walker for evaluation he wanted to be discharged home, he would discuss this with his surgeon is medically stable to be discharged at this point in time, he was need to be able to walk around with a walker and he already has a caregiver at home discontinue care of this time. Objective - Vital Signs Vital signs: Vital Signs Temp 98.0 F 05/15/19 05:00 Pulse 100 05/15/19 08:24 Resp 16 05/15/19 05:00 BP 160/93 05/15/19 05:00 Pulse Ox 96 05/15/19 05:00 Intake & Output 05/14/19 05/15/19 05/15/19 18:59 06:59 18:59 Intake Total 870 Output Total 750 Balance 870 -750 Intake: IV 120 Sodium Chloride 0.9% 1, 120 000 ml @ 20 mls/hr IV . Q24H [facility] Rx#:[id number] Intake, IV Titration 100 Amount Piperacillin-Tazobactam 3 100 .375 gm In Sodium Chloride 0.9% 100 ml @ 25 mls/hr IVPB Q8HR [facility] Rx# :[id number] Oral 650 Output: Urine 550 Stool 200 Other: Voiding Method Urinal Urinal # Voids 3 2 - Exam - Exam Review of Systems Constitutional: Denies poor appetite, Denies chills, Denies fatigue, Denies fever, Denies lethargy, Denies malaise, Denies weight loss, reports generalized weakness Eyes: denies blurred vision, denies pain Ears, nose, mouth and throat: Denies dysphagia, Denies headache, Denies nasal congestion, Denies nasal discharge, Denies sore throat, Denies vertigo Cardiovascular: Denies chest pain, Denies decreased exercise tolerance, Denies dyspnea on exertion, Denies edema, Denies shortness of breath Respiratory: Denies cough, Denies cough with sputum, reports chronic dyspnea, Denies excessive sputum, Denies hemoptysis, reports home oxygen, Denies respiratory infections, Denies wheezing Gastrointestinal: Denies abdominal pain, denies constipation, denies loss of appetite, denies nausea, Denies diarrhea, Denies vomiting Genitourinary: Denies dysuria, Denies urinary hesitancy, Denies urinary retention. Musculoskeletal: Denies frequent falls, Denies gait dysfunction, Denies muscle weakness, Denies myalgias Integumentary: Denies pruritus, Denies rash, Denies wounds Neurological: Reports change in mentation-not back to baseline, Denies change in speech, Denies numbness, Denies weakness Psychiatric: Denies anxiety, Denies depression Endocrine: Denies fatigue, Denies weight change Physical Exam Gen: This is a 69-year-old male. Patient is resting in bed and appears to be comfortable and in no acute distress. HEENT: Head is atraumatic, normocephalic. Pupils equal, round. Sclerae is anicteric. NECK: Supple. No JVD. No lymphadenopathy. No thyromegaly. LUNGS: Clear to auscultation. Expiratory wheezes. No intercostal retractions. HEART: Regular rate and rhythm. No murmur. ABDOMEN: Soft. Bowel sounds are normal. No masses. No tenderness. Dressing midline dry and intact. No active bleeding noted. Ileostomy with small amount of liquid stool in ostomy bag. EXTREMITIES: No pedal edema. No calf tenderness. Dorsalis pedis +2 bilaterally. NEUROLOGICAL: Patient is awake, alert and oriented x3. Patient is able to answer all questions appropriately. He is able to recall the date of his surgery, date and time, location. Cranial nerves 2 through 12 are grossly intact. - Labs CBC & Chem 7: 05/15/19 05:58 05/15/19 05:58 Labs: Abnormal Lab Results - Last 24 Hours (Table) 05/14/19 05/14/19 05/14/19 Range/Units 11:55 17:22 20:15 WBC (3.8-10.6) k/uL RBC (4.30-5.90) m/uL Hgb (13.0-17.5) gm/dL Hct (39.0-53.0) % Neutrophils # (1.3-7.7) k/uL Chloride (98-107) mmol/L BUN (9-20) mg/dL Glucose (74-99) mg/dL POC Glucose (mg/dL) 215 H 290 H 273 H (75-99) mg/dL AST (17-59) U/L ALT (4-49) U/L Total Protein (6.3-8.2) g/dL Albumin (3.5-5.0) g/dL 05/15/19 05/15/19 05/15/19 Range/Units 05:58 05:58 07:15 WBC 17.4 H (3.8-10.6) k/uL RBC 4.23 L (4.30-5.90) m/uL Hgb 12.7 L (13.0-17.5) gm/dL Hct 37.8 L (39.0-53.0) % Neutrophils # 15.7 H (1.3-7.7) k/uL Chloride 110 H (98-107) mmol/L BUN 29 H (9-20) mg/dL Glucose 175 H (74-99) mg/dL POC Glucose (mg/dL) 185 H (75-99) mg/dL AST 87 H (17-59) U/L ALT 88 H (4-49) U/L Total Protein 5.8 L (6.3-8.2) g/dL Albumin 3.0 L (3.5-5.0) g/dL Assessment and Plan Assessment: Assessment and Plan Plan: 1. Acute kidney injury most likely secondary to dehydration, hypotension and Lotrel, resolved. Patient may resume metformin at time of discharge. 2. Hyperkalemia secondary to acute kidney injury, resolved. 3. Metabolic acidosis secondary to renal failure, resolved. 4. Leukocytosis with no signs of infection most likely reactive. 5. History of recent partial small bowel obstruction. Status post exploratory laparotomy, lysis of extensive adhesions and repair of parastomal hernia. 6. Hypertension. Amlodipine 2.5 mg resumed. YAEL inhibitor resumed. 7. COPD with exacerbation. Patient has been seen by Dr. Mayo from pulmonary medicine and was started on Perforomist, Pulmicort, DuoNeb treatments. 8. Hyperlipidemia. Continue pravastatin 10 mg every 48 hours. 9. History of ulcerative colitis status post ileostomy with history of revision. 10. Tobacco use and dependence. 11. Generalized anxiety disorder and recurrent depression. Continue Xanax 1 mg 3 times daily as needed 8. GI prophylaxis. Protonix. 9. DVT prophylaxis. Heparin subcu. 10. Acute delirium and toxic encephalopathy secondary to epidural, perioperative medications. Epidural was discontinued. Monitor mental status. Appears much better today. 11. Patient is medically stable to be discharged with home PT, he has a walker at home.
--- NOTE | 2019-05-15 16:06 | P.PN ---
Subjective Progress Note Date: 05/15/19 Principal diagnosis: Postoperative day #4, status post exploratory laparotomy, lysis of adhesions, parastomal hernia repair. Acute exacerbation of COPD The patient is seen today in 05/13/2019 in follow-up on the regular medical floor. He is awake and alert in no acute distress. He is breathing easier today compared to yesterday. He is maintaining O2 saturations in the 90s on 2 L/m per nasal cannula. He is postoperative day #4 of an exploratory laparotomy with lysis of adhesions and parasternal hernia repair. He did have a COPD exacerbation as well. He has stage III COPD with FEV1 value of 40% of predicted. Yesterday's chest x-ray revealed evidence of cardiomegaly and fluid volume overload with small tiny bilateral pleural effusions. There is also some atelectatic changes in the lung bases. Blood culture reveals no growth. White count 11.7. Hemoglobin 13.0. He is continued on DuoNeb inhalations, Pulmicort and Perforomist inhalations, IV Solu-Medrol. Antibiotics in the form of Zosyn. He was given additional Lasix 40 mg IVP today. The patient is seen today 05/14/2019 in follow-up on the regular medical floor. He is currently awake and alert in no acute distress. Maintaining O2 saturation in the mid 90s on 2 L/m per nasal cannula. He is afebrile. Hemodynamically stable. Blood culture reveals no growth. He remains on bronchodilators, Solu-M edrol, Zosyn. The patient is seen today 05/15/2019 in follow-up on the regular medical floor. Currently sitting up in bed. Awake and alert in no acute distress. Maintaining good O2 saturations in the 90s on 2 L/m per nasal cannula. Remains afebrile. White count 17.4. Hemoglobin 12.7. Sodium 141. Potassium 3.5. Creatinine 0.79. AST 87, ALT 88. Albumin 3.0. Continued on Zosyn, IV Solu-Medrol, bronchodilators. Objective - Vital Signs Vital signs: Vital Signs Temp 98.4 F 05/15/19 11:22 Pulse 88 05/15/19 15:40 Resp 16 05/15/19 15:40 BP 142/78 05/15/19 11:22 Pulse Ox 96 05/15/19 15:30 Intake & Output 05/14/19 05/15/19 05/15/19 18:59 06:59 18:59 Intake Total 870 Output Total 750 200 Balance 870 -750 -200 Intake: IV 120 Sodium Chloride 0.9% 1, 120 000 ml @ 20 mls/hr IV . Q24H [facility] Rx#:[id number] Intake, IV Titration 100 Amount Piperacillin-Tazobactam 3 100 .375 gm In Sodium Chloride 0.9% 100 ml @ 25 mls/hr IVPB Q8HR [facility] Rx# :[id number] Oral 650 Output: Urine 550 Stool 200 200 Other: Voiding Method Urinal Urinal Urinal # Voids 3 2 3 - Exam GENERAL EXAM: Alert, pleasant 69-year-old gentleman, on 2 L nasal cannula comfo rtable in no apparent distress. HEAD: Normocephalic. EYES: Normal reaction of pupils, equal size. NOSE: Clear with pink turbinates. THROAT: No erythema or exudates. NECK: No masses, no JVD. CHEST: No chest wall deformity. LUNGS: Equal air entry with bilateral end expiratory wheeze, diminished. CVS: S1 and S2 normal with no audible murmur, regular rhythm. ABDOMEN: Dressing clean dry and intact. Ostomy with liquid stool noted. No hepatosplenomegaly, normal bowel sounds, no guarding or rigidity. SPINE: No scoliosis or deformity SKIN: No rashes CENTRAL NERVOUS SYSTEM: No focal deficits, tone is normal in all 4 extremities. EXTREMITIES: There is no peripheral edema. No clubbing, no cyanosis. P eripheral pulses are intact. - Labs CBC & Chem 7: 05/15/19 05:58 05/15/19 05:58 Labs: Abnormal Lab Results - Last 24 Hours (Table) 05/14/19 05/14/19 05/15/19 Range/Units 17:22 20:15 05:58 WBC 17.4 H (3.8-10.6) k/uL RBC 4.23 L (4.30-5.90) m/uL Hgb 12.7 L (13.0-17.5) gm/dL Hct 37.8 L (39.0-53.0) % Neutrophils # 15.7 H (1.3-7.7) k/uL Chloride (98-107) mmol/L BUN (9-20) mg/dL Glucose (74-99) mg/dL POC Glucose (mg/dL) 290 H 273 H (75-99) mg/dL AST (17-59) U/L ALT (4-49) U/L Total Protein (6.3-8.2) g/dL Albumin (3.5-5.0) g/dL 05/15/19 05/15/19 05/15/19 Range/Units 05:58 07:15 11:24 WBC (3.8-10.6) k/uL RBC (4.30-5.90) m/uL Hgb (13.0-17.5) gm/dL Hct (39.0-53.0) % Neutrophils # (1.3-7.7) k/uL Chloride 110 H (98-107) mmol/L BUN 29 H (9-20) mg/dL Glucose 175 H (74-99) mg/dL POC Glucose (mg/dL) 185 H 236 H (75-99) mg/dL AST 87 H (17-59) U/L ALT 88 H (4-49) U/L Total Protein 5.8 L (6.3-8.2) g/dL Albumin 3.0 L (3.5-5.0) g/dL Assessment and Plan Assessment: 1 Status post post-exploratory laparotomy, lysis of adhesions and parastomal hernia repair. Postoperative day #6. 2 Acute exacerbation of severe Gold stage III chronic obstructive pulmonary disease with FEV1 value of 40% of predicted. 3 Prior history of ileostomy, secondary to ulcerative colitis. 4 Hypertension. 5 Hyperlipidemia. 6 Hypothyroidism. 7 Diabetes mellitus. 8 History of angina Plan: The patient was seen and evaluated by Dr. Mayo Continue current pulmonary medications DC IV Solu-Medrol, prednisone taper starting at 30 mg daily Titrate FiO2 as tolerated Home once cleared by surgery We'll continue to follow I, the cosigning physician, performed a history & physical examination of the patient. Lungs sounds with bilateral end expiratory wheeze, diminished. Maintaining good O2 saturations in the 90s on 2 L/m per nasal cannula. I discussed the assessment and plan of care with my nurse practitioner, Kenzie Perry. I attest to the above note as dictated by her.
[2019-05-15 17:15] LABS: Glucose,Whole Blood 215 mg/dL (75-99)
[2019-05-15] MEDS: SODIUM CHLORIDE 0.9% 1,000 ML IV SCH (17:54)
[2019-05-15 18:53] VITALS: RESP 18
[2019-05-15 20:29] LABS: Glucose,Whole Blood 266 mg/dL (75-99)
[2019-05-16 05:45] LABS: Basophils % (A) 0 %; Eosinophils % (A) 0 %; HCT 37.3 % (39.0-53.0); HGB 12.2 gm/dL (13.0-17.5); Lymphocytes # (A) 1.4 k/uL (1.0-4.8); Lymphocytes % (A) 9 %; MCH 29.4 pg (25.0-35.0); MCHC 32.8 g/dL (31.0-37.0); MCV 89.7 fL (80.0-100.0); Mean Platelet Volume 7.3; Monocytes # (A) 0.8 k/uL (0-1.0); Monocytes % (A) 6 %; Neutrophils % (A) 84 %; Platelet Count 341 k/uL (150-450); RBC 4.16 m/uL (4.30-5.90); WBC 14.3 k/uL (3.8-10.6)
[2019-05-16] MEDS: LEVOTHYROXINE 25 MCG TAB PO SCH (05:59)
[2019-05-16 06:36] LABS: ALT 78 U/L (4-49); AST 48 U/L (17-59); African American GFR (CKD) >90 (>60 ml/min/1.73 sqM); Albumin 2.8 g/dL (3.5-5.0); Alkaline Phosphatase 56 U/L (38-126); Anion Gap 4 mmol/L; Blood Urea Nitrogen 32 mg/dL (9-20); Calcium 8.2 mg/dL (8.4-10.2); Carbon Dioxide 26 mmol/L (22-30); Chloride 111 mmol/L (98-107); Glucose 138 mg/dL (74-99); Non-African American GFR(CKD) >90 (>60 ml/min/1.73 sqM); Potassium 3.5 mmol/L (3.5-5.1); Sodium 141 mmol/L (137-145); Total Bilirubin 0.5 mg/dL (0.2-1.3); Total Protein 5.4 g/dL (6.3-8.2)
[2019-05-16 06:58] LABS: Glucose,Whole Blood 131 mg/dL (75-99)
[2019-05-16] MEDS: INSULIN ASPART (NovoLOG) 100 UNIT/ML VIAL SQ SCH ×2 (08:16→11:14)
[2019-05-16] MEDS: amLODIPine 2.5 MG TAB PO SCH (08:17)
[2019-05-16] MEDS: FLUoxetine HCL 20 MG CAP PO SCH (08:17)
[2019-05-16] MEDS: PANTOPRAZOLE 40 MG TABLET PO SCH (08:17)
[2019-05-16] MEDS: buPROPion SR 100 MG TABLET.ER PO SCH (08:17)
[2019-05-16] MEDS: ISOSORBIDE MONONITRATE ER 30 MG TAB.ER.24H PO SCH (08:17)
[2019-05-16] MEDS: LISINOPRIL 10 MG TAB PO SCH (08:17)
[2019-05-16] MEDS: VIT A,C & E-LUTEIN-MINERALS 1 EACH TAB PO SCH (08:17)
[2019-05-16] MEDS: PIPERACILLIN-TAZOBACTAM 3.375 GM in SODIUM CHLORIDE 0.9% 100 ML IVPB SCH (08:17)
[2019-05-16] MEDS: BUDESONIDE 1 MG/2 ML NEBU INHALATION SCH (08:18)
[2019-05-16] MEDS: HEPARIN SODIUM,PORCINE 5,000 UNIT/ML 1 ML VIAL SQ SCH (08:18)
[2019-05-16] MEDS: FORMOTEROL FUMARATE 20 MCG/2 ML NEBU INHALATION SCH (08:18)
[2019-05-16] MEDS: IPRATROPIUM-ALBUTEROL 3 ML NEB INHALATION SCH ×3 (08:18→16:42)
[2019-05-16] MEDS ORDERED: predniSONE 10 MG TAB PO SCH (09:00)
--- NOTE | 2019-05-16 11:09 | P.DS ---
Providers Date of admission: 05/06/19 10:00 Expected date of discharge: 05/16/19 Attending physician: Donavon Liz Consults: 05/06/19 10:00 Consult Physician Routine Consulting Provider: Maria Esther Brink Consult Reason/Comments: Acute kidney injury, medical management Do you want consulting provider notified?: Yes 05/12/19 12:20 Consult Physician Routine Consulting Provider: Mc Mayo Consult Reason/Comments: SOB Do you want consulting provider notified?: Yes Primary care physician: Justin F[facility]ardo [facility] Course: 69-year-old male who is status post exploratory laparotomy, lysis of adhesions, and repair of parastomal hernia with Dr. Liz. Patient had some encephalopathy postoperatively which delayed his hospitalization. Patient's mental status is back to his baseline. He is tolerating diet without nausea or vomiting. Ostomy is functioning. Vital signs are stable. He is stable for discharge today. Please see EMR for further hospital course details. Discharge Diagnosis: 1. Small bowel obstruction, status post exploratory laparotomy, lysis of adhesions, and repair of parastomal hernia Nurse practitioner note has been reviewed by physician. Signing provider agrees with the documented findings, assessment, and plan of care. Patient Condition at Discharge: Stable Plan - Discharge Summary Discharge Rx Participant: Yes New Discharge Prescriptions: New Acetaminophen Tab [Tylenol Tab] 650 mg PO Q4H PRN #30 tablet PRN Reason: Pain Levofloxacin [Levaquin] 500 mg PO DAILY 5 Days #5 tab No Action amLODIPine BESYLATE/BENAZEPRIL [Lotrel 2.5-10 MG] 1 cap PO DAILY Aspirin 325 mg PO DAILY Ascorbic Acid [Vitamin C] 500 mg PO DAILY Budesonide-Formot 160-4.5 Mcg [Symbicort 160-4.5 Mcg Inhaler] 2 puff INHALATION RT-BID ALPRAZolam [Xanax] 1 mg PO TID PRN PRN Reason: Anxiety metFORMIN HCL [Glucophage] 500 mg PO DAILY FLUoxetine HCL [PROzac] 40 mg PO DAILY Tiotropium Viola [Spiriva] 1 cap INHALATION DAILY Nitroglycerin Sl Tabs [Nitrostat] 0.4 mg SUBLINGUAL Q5M PRN PRN Reason: Chest Pain Isosorbide Mononitrate [Isosorbide Mononitrate ER] 30 mg PO DAILY Albuterol Nebulized [Ventolin Nebulized] 2.5 mg INHALATION RT-TID Albuterol Sulfate [Proair Hfa] 2 puff INHALATION RT-Q6H PRN PRN Reason: Shortness Of Breath Pravastatin Sodium [Pravachol] 10 mg PO Q48H Chuckie/D3/Mag11/Zinc/Glue Spreader/Jasper/Bor [Caltrate 600+D Plus Tablet] 1 tab PO BID C,E,Zinc,Copper 11/Oariv4q/Lut [Ocuvite Adult 50 Plus Softgel] 1 cap PO DAILY Nystatin 100,000Unit/gm Cream [Mycostatin Cream] 1 applic TOPICAL BID PRN PRN Reason: Rash Multivitamins, Thera [Multivitamin (formulary)] 1 tab PO DAILY Levothyroxine Sodium [Synthroid] 25 mcg PO DAILY buPROPion HCL [buPROPion HCL ER] 200 mg PO DAILY Discharge Medication List ALPRAZolam [Xanax] 1 mg PO TID PRN 05/16/16 [History] Albuterol Nebulized [Ventolin Nebulized] 2.5 mg INHALATION RT-TID 05/16/16 [History] Ascorbic Acid [Vitamin C] 500 mg PO DAILY 05/16/16 [History] Aspirin 325 mg PO DAILY 05/16/16 [History] Budesonide-Formot 160-4.5 Mcg [Symbicort 160-4.5 Mcg Inhaler] 2 puff INHALATION RT-BID 05/16/16 [History] FLUoxetine HCL [PROzac] 40 mg PO DAILY 05/16/16 [History] Isosorbide Mononitrate [Isosorbide Mononitrate ER] 30 mg PO DAILY 05/16/16 [History] Nitroglycerin Sl Tabs [Nitrostat] 0.4 mg SUBLINGUAL Q5M PRN 05/16/16 [History] Tiotropium Viola [Spiriva] 1 cap INHALATION DAILY 05/16/16 [History] amLODIPine BESYLATE/BENAZEPRIL [Lotrel 2.5-10 MG] 1 cap PO DAILY 05/16/16 [History] metFORMIN HCL [Glucophage] 500 mg PO DAILY 05/16/16 [History] Albuterol Sulfate [Proair Hfa] 2 puff INHALATION RT-Q6H PRN 04/17/19 [History] C,E,Zinc,Copper 11/Gezpl8c/Lut [Ocuvite Adult 50 Plus Softgel] 1 cap PO DAILY 04/17/19 [History] Chuckie/D3/Mag11/Zinc/Glue Spreader/Jasper/Bor [Caltrate 600+D Plus Tablet] 1 tab PO BID 04/17/19 [History] Levothyroxine Sodium [Synthroid] 25 mcg PO DAILY 04/17/19 [History] Multivitamins, Thera [Multivitamin (formulary)] 1 tab PO DAILY 04/17/19 [History] Nystatin 100,000Unit/gm Cream [Mycostatin Cream] 1 applic TOPICAL BID PRN 04/17/19 [History] Pravastatin Sodium [Pravachol] 10 mg PO Q48H 04/17/19 [History] buPROPion HCL [buPROPion HCL ER] 200 mg PO DAILY 04/17/19 [History] Acetaminophen Tab [Tylenol Tab] 650 mg PO Q4H PRN #30 tablet 05/13/19 [Rx] Levofloxacin [Levaquin] 500 mg PO DAILY 5 Days #5 tab 05/16/19 [Rx] Follow up Appointment(s)/Referral(s): [facility], [NON-STAFF] - As Needed Justin Angeles MD [Primary Care Provider] - 1-2 days Donavon Liz MD [STAFF PHYSICIAN] - 1 Week Activity/Diet/Wound Care/Special Instructions: No lifting over 10 pounds You may shower. No soaking or tub baths Very light activity until you are reevaluated at your follow up appointment with your surgeon
[2019-05-16 11:11] LABS: Glucose,Whole Blood 112 mg/dL (75-99)
[2019-05-16 11:55] VITALS: BP 135/76; PULSE 90; TEMP 99.5
--- NOTE | 2019-05-16 12:41 | P.PN ---
Subjective Progress Note Date: 05/16/19 This is a 69-year-old male patient of Dr. Angeles, Dr. Painter, Dr. Morel past medical history of diabetes mellitus type 2, hypertension, COPD with FEV1 40% without O2 or prednisone dependence, hypothyroidism, ulcerative colitis status post ileostomy initially done [address] Danielson with revision done [address] Liz, tobacco use and dependence, generalized anxiety disorder and recurrent depression. Patient had a recent hospitalization April 16 through April 19 which time he was treated for partial small bowel obstruction secondary to parastomal hernia. Patient was discharged home with plan to follow-up with Dr. Liz and be scheduled for hernia repair at a later date. Patient was brought into the hospital today for scheduled surgery and while in the preop area, patient developed chest pain and dyspnea. Pain was a pressure type sensation but shortness of breath was at his baseline as patient states he has underlying emphysema and he is at his baseline. Patient was found to be tachycardic and hypotensive and was taken to the emergency center for evaluation. Blood pressure 86/56, heart rate 93, afebrile, pulse ox 90% on room air. EKG was a normal sinus rhythm with no acute ST-T wave changes. Elizabeth BC 15.4, hemoglobin 16.8, platelet count 320. Sodium 136, potassium 5.3, chloride 108, CO2 17, BUN 18, creatinine 1.67, blood sugar 218, liver function tests within normal limits, lactic acid initially 2.3, troponin negative. Chest x-ray shows subsegmental atelectatic changes, possible scarring. Patient has been admitted to the [facility] floor under the care of Dr. Liz and surgery has been rescheduled for Thursday. Patient has been started on IV fluids and Lotrel held. Patient states that he has been eating and drinking without any difficulty and appetite has been good. He denies any new respiratory symptoms. At time of evaluation, patient denies having any chest pain. 05/06: Pulse rate is much better, blood pressure has improved significantly, his kidney function and potassium are a lot better today patient has improved hem odynamically, blood sugar still mildly elevated only continue IV hydration his surgery was delayed apparently until at least Thursday is doing well might be able to do his surgery on Thursday. 05/07: Patient's pulse rate is under control his creatinine has improved significantly increased urine output this point patient is less dehydrated is not having any abdominal pain and as of today surgery scheduled for early tomorrow morning. 05/08: Patient is afebrile, heart rate 80, blood pressure 171/92, pulse ox 95% on room air. Patient is nothing by mouth for support to a laparotomy repair of peristomal hernia scheduled for today. 05/09: Yesterday, patient underwent exploratory laparotomy, lysis of extensive adhesions and repair of parastomal hernia by Dr. Liz. Pathology report is pending. Epidural is in place for pain control. Patient has been afebrile, heart rate 88, blood pressure 125/69, pulse ox 90% on room air. Incentive spirometry added. Patient states that he has no pain. He does have output in his ostomy bag. Moore catheter is drained clear stephane urine. Patient to start a full liquid diet for lunch today. Repeat lab work has been ordered for tomorrow. 05/10: Patient had episode of confusion this morning he pulled his IV and tried to pull out Moore. His epidural is to be titrated down and discontinued later today. Moore catheter will less also be removed. At the time of evaluation. Patient's mental status is back to baseline but he complains of feeling very w eak. Pain is controlled. He states he is eating okay without any nausea or vomiting. He is currently on a full liquid diet. Patient is afebrile, heart rate 84, blood pressure 157/76, pulse ox 92% on room air. Repeat lab work reveals WBC 17.6, hemoglobin 13.4. Lactate lites in renal function normal. Blood sugar running between 97 and 117. Blood culture no growth. 05/11: Patient has been afebrile. Temperature max 99.4, heart rate 93, blood pressure 162/84, pulse ox 94% on room air. Repeat CBC reveals white count of 13.7, hemoglobin 13.4, platelet count 263. Blood sugars running between 109 and 131. Patient continued to significant confusion during the night and into the morning. At the time of our evaluation, he does seem to be somewhat improved and back to his baseline. Patient is able to answer questions appropriately. Patient is having output from ostomy. Patient is cleared for medicine for discharge home. Patient may resume metformin and Lotrel at home. 05/12: Patient is afebrile, heart rate 111, blood pressure 184/94, pulse ox 94% on 2 L nasal cannula. YAEL inhibitor will be resumed. WBC 11.7, hemoglobin 13, platelet count 293. Blood sugars running 111-151. Patient continues to have confusion and not back to his baseline. Chest x-ray consistent with heart failure exacerbation, cardiomegaly with small tiny bilateral pleural effusions. One dose of IV Lasix was ordered but patient has not had a IV access for 24 hours as he had pulled out his IV. This was changed to oral 40 mg 1. Patient has been seen by Dr. Mayo from pulmonary medicine and was started on Perforomist, Pulmicort, DuoNeb treatments for COPD exacerbation. 05/13: Patient is sitting up in bed he is less confused today he denies any chest pain, shortness breath, he appears to be generally weak, his stoma is working, he has no nausea or vomiting he does not appear to be in any acute distress he seems to be getting back to his baseline. Discussed with general surgery the need to stay in the hospital until Thursday. 05/14: Patient sitting up in bed in no apparent distress, he is less confused he is back toline he uses walker for evaluation he wanted to be discharged home, he would discuss this with his surgeon is medically stable to be discharged at this point in time, he was need to be able to walk around with a walker and he already has a caregiver at home discontinue care of this time. 05/15: Patient states that abdominal pain is controlled. He has no nausea or vomiting. He is tolerating a diet. He has output of liquid stool from his ostomy. He has been afebrile, heart rate 90, blood pressure 135/76, pulse ox 94% on room air. Repeat blood work reveals WBC 14.3, hemoglobin 12.2, platelet count 341. Sodium 141, potassium 3.5, chloride 111, CO2 26, BUN 32, creatinine 0.8. Total bilirubin 0.5, AST 48, ALT 78, alkaline phosphatase 56. Blood sugars running between 138 and 266. Albumin 2.8. Patient is clear from medicine for discharge from medicine. Objective - Vital Signs Vital signs: Vital Signs Temp 99.3 F 05/16/19 04:47 Pulse 92 05/16/19 08:41 Resp 18 05/15/19 20:28 BP 162/80 05/16/19 04:47 Pulse Ox 92 L 05/16/19 04:47 Intake & Output 05/15/19 05/16/19 05/16/19 18:59 06:59 18:59 Intake Total 240 Output Total 850 1200 Balance -850 -960 Intake: IV 240 Sodium Chloride 0.9% 1, 240 000 ml @ 20 mls/hr IV . Q24H [facility] Rx#:[id number] Output: Urine 250 800 Stool 600 400 Other: Voiding Method Urinal Urinal Urinal # Voids 3 - Exam Review of Systems Constitutional: Denies poor appetite, Denies chills, Denies fatigue, Denies fever, Denies lethargy, Denies malaise, Denies weight loss, reports generalized weakness Eyes: denies blurred vision, denies pain Ears, nose, mouth and throat: Denies dysphagia, Denies headache, Denies nasal congestion, Denies nasal discharge, Denies sore throat, Denies vertigo Cardiovascular: Denies chest pain, Denies decreased exercise tolerance, Denies dyspnea on exertion, Denies edema, Denies shortness of breath Respiratory: Denies cough, Denies cough with sputum, reports chronic dyspnea, Denies excessive sputum, Denies hemoptysis, reports home oxygen, Denies respiratory infections, Denies wheezing Gastrointestinal: Denies abdominal pain, denies constipation, denies loss of appetite, denies nausea, Denies diarrhea, Denies vomiting Genitourinary: Denies dysuria, Denies urinary hesitancy, Denies urinary retention. Musculoskeletal: Denies frequent falls, Denies gait dysfunction, Denies muscle weakness, Denies myalgias Integumentary: Denies pruritus, Denies rash, Denies wounds Neurological: Denies change in mentation-not back to baseline, Denies change in speech, Denies numbness, Denies weakness Psychiatric: Denies anxiety, Denies depression Endocrine: Denies fatigue, Denies weight change Physical Exam Gen: This is a 69-year-old male. Patient is resting in chair and appears to be comfortable and in no acute distress. HEENT: Head is atraumatic, normocephalic. Pupils equal, round. Sclerae is anicteric. NECK: Supple. No JVD. No lymphadenopathy. No thyromegaly. LUNGS: Clear to auscultation. Expiratory wheezes. No intercostal retractions. HEART: Regular rate and rhythm. No murmur. ABDOMEN: Soft. Bowel sounds are normal. No masses. No tenderness. Dressing midline dry and intact. No active bleeding noted. Ileostomy with small amount of liquid stool in ostomy bag. EXTREMITIES: No pedal edema. No calf tenderness. Dorsalis pedis +2 bi laterally. NEUROLOGICAL: Patient is awake, alert and oriented x3. No neuro deficits. Cranial nerves 2 through 12 are grossly intact. - Labs CBC & Chem 7: 05/16/19 05:34 05/16/19 05:34 Labs: Abnormal Lab Results - Last 24 Hours (Table) 05/15/19 05/15/19 05/15/19 Range/Units 11:24 17:13 20:27 WBC (3.8-10.6) k/uL RBC (4.30-5.90) m/uL Hgb (13.0-17.5) gm/dL Hct (39.0-53.0) % Neutrophils # (1.3-7.7) k/uL Chloride (98-107) mmol/L BUN (9-20) mg/dL Glucose (74-99) mg/dL POC Glucose (mg/dL) 236 H 215 H 266 H (75-99) mg/dL Calcium (8.4-10.2) mg/dL ALT (4-49) U/L Total Protein (6.3-8.2) g/dL Albumin (3.5-5.0) g/dL 05/16/19 05/16/19 05/16/19 Range/Units 05:34 05:34 06:58 WBC 14.3 H (3.8-10.6) k/uL RBC 4.16 L (4.30-5.90) m/uL Hgb 12.2 L (13.0-17.5) gm/dL Hct 37.3 L (39.0-53.0) % Neutrophils # 12.0 H (1.3-7.7) k/uL Chloride 111 H (98-107) mmol/L BUN 32 H (9-20) mg/dL Glucose 138 H (74-99) mg/dL POC Glucose (mg/dL) 131 H (75-99) mg/dL Calcium 8.2 L (8.4-10.2) mg/dL ALT 78 H (4-49) U/L Total Protein 5.4 L (6.3-8.2) g/dL Albumin 2.8 L (3.5-5.0) g/dL Assessment and Plan Plan: 1. Acute kidney injury most likely secondary to dehydration, hypotension and Lotrel, resolved. Patient may resume metformin at time of discharge. 2. Hyperkalemia secondary to acute kidney injury, resolved. 3. Metabolic acidosis secondary to renal failure, resolved. 4. Leukocytosis with no signs of infection most likely reactive. 5. History of recent partial small bowel obstruction. Status post exploratory laparotomy, lysis of extensive adhesions and repair of parastomal hernia. 6. Hypertension. Amlodipine 2.5 mg resumed. YAEL inhibitor resumed. 7. COPD with exacerbation. Patient has been seen by Dr. Mayo from pulmonary medicine and was started on Perforomist, Pulmicort, DuoNeb treatments. 8. Hyperlipidemia. Continue pravastatin 10 mg every 48 hours. 9. History of ulcerative colitis status post ileostomy with history of revision. 10. Tobacco use and dependence. 11. Generalized anxiety disorder and recurrent depression. Continue Xanax 1 mg 3 times daily as needed 8. GI prophylaxis. Protonix. 9. DVT prophylaxis. Heparin subcu. 10. Acute delirium and toxic encephalopathy secondary to epidural, perioperative medications. Epidural was discontinued. Monitor mental status. Discharge plan: Return home [facility] care and [facility]. Impression and plan of care have been directed as dictated by the signing physician. Shweta Hong nurse practitioner acting as scribe for signing physician.
--- NOTE | 2019-05-16 13:45 | P.PN ---
Subjective Progress Note Date: 05/16/19 Principal diagnosis: Postoperative day #5, status post exploratory laparotomy, lysis of adhesions, parastomal hernia repair. Acute exacerbation of COPD The patient is seen today in 05/13/2019 in follow-up on the regular medical floor. He is awake and alert in no acute distress. He is breathing easier today compared to yesterday. He is maintaining O2 saturations in the 90s on 2 L/m per nasal cannula. He is postoperative day #4 of an exploratory laparotomy with lysis of adhesions and parasternal hernia repair. He did have a COPD exacerbation as well. He has stage III COPD with FEV1 value of 40% of predicted. Yesterday's chest x-ray revealed evidence of cardiomegaly and fluid volume overload with small tiny bilateral pleural effusions. There is also some atelectatic changes in the lung bases. Blood culture reveals no growth. White count 11.7. Hemoglobin 13.0. He is continued on DuoNeb inhalations, Pulmicort and Perforomist inhalations, IV Solu-Medrol. Antibiotics in the form of Zosyn. He was given additional Lasix 40 mg IVP today. The patient is seen today 05/14/2019 in follow-up on the regular medical floor. He is currently awake and alert in no acute distress. Maintaining O2 saturation in the mid 90s on 2 L/m per nasal cannula. He is afebrile. Hemodynamically stable. Blood culture reveals no growth. He remains on bronchodilators, Solu-M edrol, Zosyn. The patient is seen today 05/15/2019 in follow-up on the regular medical floor. Currently sitting up in bed. Awake and alert in no acute distress. Maintaining good O2 saturations in the 90s on 2 L/m per nasal cannula. Remains afebrile. White count 17.4. Hemoglobin 12.7. Sodium 141. Potassium 3.5. Creatinine 0.79. AST 87, ALT 88. Albumin 3.0. Continued on Zosyn, IV Solu-Medrol, bronchodilators. The patient is seen today 05/16/2019 in follow-up on the regular medical floor. He is currently sitting up in a chair at the bedside. Awake and alert in no acute distress. He is doing well. Tolerating a diet. Denies any shortness of breath cough or congestion. He is maintaining O2 saturations in the 90s on room air now. He is anxious to go home Objective - Vital Signs Vital signs: Vital Signs Temp 99.5 F 05/16/19 11:55 Pulse 90 05/16/19 11:55 Resp 18 05/16/19 11:55 BP 135/76 05/16/19 11:55 Pulse Ox 94 L 05/16/19 11:55 Intake & Output 05/15/19 05/16/19 05/16/19 18:59 06:59 18:59 Intake Total 240 Output Total 850 1200 Balance -850 -960 Intake: IV 240 Sodium Chloride 0.9% 1, 240 000 ml @ 20 mls/hr IV . Q24H [facility] Rx#:[id number] Output: Urine 250 800 Stool 600 400 Other: Voiding Method Urinal Urinal Urinal # Voids 3 - Exam GENERAL EXAM: Alert, pleasant 69-year-old gentleman, on room air, comfortable in no apparent distress. HEAD: Normocephalic. EYES: Normal reaction of pupils, equal size. NOSE: Clear with pink turbinates. THROAT: No erythema or exudates. NECK: No masses, no JVD. CHEST: No chest wall deformity. LUNGS: Equal air entry with no rhonchi, wheeze or crackles. Diminished CVS: S1 and S2 normal with no audible murmur, regular rhythm. ABDOMEN: Dressing clean dry and intact. Ostomy with liquid stool noted. No hepatosplenomegaly, normal bowel sounds, no guarding or rigidity. SPINE: No scoliosis or deformity SKIN: No rashes CENTRAL NERVOUS SYSTEM: No focal deficits, tone is normal in all 4 extremities. EXTREMITIES: There is no peripheral edema. No clubbing, no cyanosis. Peripheral pulses are intact. - Labs CBC & Chem 7: 05/16/19 05:34 05/16/19 05:34 Labs: Abnormal Lab Results - Last 24 Hours (Table) 05/15/19 05/15/19 05/16/19 Range/Units 17:13 20:27 05:34 WBC 14.3 H (3.8-10.6) k/uL RBC 4.16 L (4.30-5.90) m/uL Hgb 12.2 L (13.0-17.5) gm/dL Hct 37.3 L (39.0-53.0) % Neutrophils # 12.0 H (1.3-7.7) k/uL Chloride (98-107) mmol/L BUN (9-20) mg/dL Glucose (74-99) mg/dL POC Glucose (mg/dL) 215 H 266 H (75-99) mg/dL Calcium (8.4-10.2) mg/dL ALT (4-49) U/L Total Protein (6.3-8.2) g/dL Albumin (3.5-5.0) g/dL 05/16/19 05/16/19 05/16/19 Range/Units 05:34 06:58 11:09 WBC (3.8-10.6) k/uL RBC (4.30-5.90) m/uL Hgb (13.0-17.5) gm/dL Hct (39.0-53.0) % Neutrophils # (1.3-7.7) k/uL Chloride 111 H (98-107) mmol/L BUN 32 H (9-20) mg/dL Glucose 138 H (74-99) mg/dL POC Glucose (mg/dL) 131 H 112 H (75-99) mg/dL Calcium 8.2 L (8.4-10.2) mg/dL ALT 78 H (4-49) U/L Total Protein 5.4 L (6.3-8.2) g/dL Albumin 2.8 L (3.5-5.0) g/dL Assessment and Plan Assessment: 1 Status post post-exploratory laparotomy, lysis of adhesions and parastomal hernia repair. Postoperative day #7. 2 Acute exacerbation of severe Gold stage III chronic obstructive pulmonary disease with FEV1 value of 40% of predicted. 3 Prior history of ileostomy, secondary to ulcerative colitis. 4 Hypertension. 5 Hyperlipidemia. 6 Hypothyroidism. 7 Diabetes mellitus. 8 History of angina Plan: The patient was seen and evaluated by Dr. Wells Continue current pulmonary medications Prednisone taper starting at 30 mg daily Home once cleared by surgery We'll continue to follow I, the cosigning physician, performed a history & physical examination of the patient. Lungs sounds clear diminished. Maintaining good O2 saturations in the 90s on room air. I discussed the assessment and plan of care with my nurse practitioner, Kenzie Prery. I attest to the above note as dictated by her.
--- NOTE | 2019-05-16 13:55 | CDI ---
Documentation Clarification Form Date: 05/16/2019 11:40:57 AM From: Chani Helm RN CCDS Admit Date: 05/06/2019 10:00:00 AM Patient Name: Kalen Freeman Visit Number: [id number] Discharge Date: ATTENTION: The Clinical Documentation Specialists (CDI) and [facility] Coding Staff appreciate your assistance in clarifying documentation. Please respond to the clarification below the line at the bottom and electronically sign. The CDI & [facility] Coding staff will review the response and follow-up if needed. Please note: Queries are made part of the Legal Health Record. If you have any questions, please contact the author of this message via ITS. Dr. Leticia Sam, Conflicting documentation has been found in the medical record: 05/12 Pulmonology Progress Note Yesterdays chest x-ray revealed evidence of cardiomegaly and fluid volume overload with small tiny bilateral pleural effusions. 05/13 Surgery Progress Note His congestive heart failure / pneumonia is improving as well. History/Risk Factors: 69-year-old male presents to the ED for pre op evaluation of chest pain and dyspnea. Medical history DM2, HTN, COPD, Clinical Indicators: 05/05 Lab [id number] 05/05 CXR Suspect some subsegmental atelectatic changes, possible scarring. 05/11 CXR Findings consistent with CHF exacerbation as there is cardiomegaly with small to tiny bilateral effusions Internal medicine 05/12 Progress Note Chest x-ray consistent with heart failure exacerbation, cardiomegaly with small tiny bilateral pleural effusions. Treatment: 05/12 Lasix 40mg po x1 In your opinion, what is the most clinically appropriate diagnosis for this patient? Fluid Volume Overload Congestive Heart Failure (please specify Type and acuity) Other explanation of clinical findings Unable to determine (no explanation for clinical findings) (Last Revision: May 2017) ____Chronic Systolic heart failure with small bilateral pleural effusion and compressive atelectasis MTDD
== END 2019-05-16 16:30 | disposition home health service (06) | DRG 329 ==
LOC: EC 07:50 → 4SSUR 10:00 → 5NMEDONC 05-13 12:33
PROVIDERS: ADMIT Surgery; ATTEND Surgery
PROC: 0WQF0ZZ Repair Abdominal Wall, Open Approach (ICD-10-PCS; principal; 2019-05-09 08:40)
PROC: 0D1B0Z4 Bypass Ileum to Cutaneous, Open Approach (ICD-10-PCS; principal; 2019-05-09 08:40)
PROC: 0DN80ZZ Release Small Intestine, Open Approach (ICD-10-PCS; principal; 2019-05-09 08:40)
DX: K56.50 Intestinal adhesions [bands], unspecified as to partial versus complete obstruction (principal); G93.41 Metabolic encephalopathy; J18.9 Pneumonia, unspecified organism; E87.2 Acidosis; K43.3 Parastomal hernia with obstruction, without gangrene; K51.90 Ulcerative colitis, unspecified, without complications; K94.13 Enterostomy malfunction; N17.9 Acute kidney failure, unspecified; I50.22 Chronic systolic (congestive) heart failure; J98.11 Atelectasis; E03.9 Hypothyroidism, unspecified; E11.9 Type 2 diabetes mellitus without complications; E78.5 Hyperlipidemia, unspecified; E86.0 Dehydration; E87.5 Hyperkalemia; F17.210 Nicotine dependence, cigarettes, uncomplicated; F32.9 Major depressive disorder, single episode, unspecified; F41.9 Anxiety disorder, unspecified; I11.0 Hypertensive heart disease with heart failure; J43.9 Emphysema, unspecified; Z53.20 Procedure and treatment not carried out because of patient's decision for unspecified reasons; Z79.51 Long term (current) use of inhaled steroids; Z79.82 Long term (current) use of aspirin; Z79.84 Long term (current) use of oral hypoglycemic drugs; Z79.890 Hormone replacement therapy; Z79.899 Other long term (current) drug therapy; Z80.8 Family history of malignant neoplasm of other organs or systems; Z82.3 Family history of stroke; Z82.49 Family history of ischemic heart disease and other diseases of the circulatory system; Z82.5 Family history of asthma and other chronic lower respiratory diseases; Z83.3 Family history of diabetes mellitus; Z83.2 Family history of diseases of the blood and blood-forming organs and certain disorders involving the immune mechanism; Z84.1 Family history of disorders of kidney and ureter; Z90.49 Acquired absence of other specified parts of digestive tract; I95.9 Hypotension, unspecified
CPT/HCPCS: 36415; 71046; 80048; 80053; 81001; 83605; 83735; 83880; 84484; 85025; 85027; 85610; 85730; 87040; 88307; 93005; 94640; 94760; 96361; 96374; 99285

== ENCOUNTER 2019-05-18 07:43 | Emergency (ER) | payer MEDICARE ==
[2019-05-18 07:55] VITALS: BP 136/90; PULSE 91; RESP 16; TEMP 98.4
--- NOTE | 2019-05-18 08:34 | ED ---
Recheck HPI - General Chief Complaint: Recheck/Abnormal Lab/Rx Stated Complaint: ostomy looked at & supplies Time Seen by Provider: 05/18/19 07:56 Source: patient, RN notes reviewed Mode of arrival: ambulatory Limitations: no limitations - History of Present Illness Initial Comments: This a 69-year-old male presents emergency Department with chief complaint of colostomy bag leaking. Patient states that he had surgery 11 days ago for change of his colostomy site. Patient states his incision is healing well but states that his back started leaking. Patient states that the skin is slightly irritated. He does not have supplies at home to help with this. Patient called the surgeon who advised him come emergency department for evaluation. Patient denies fever chills abdominal pain headache dizziness chest pain or shortness breath. - Related Data Home Medications Medication Instructions Recorded Confirmed ALPRAZolam [Xanax] 1 mg PO TID PRN 05/16/16 05/06/19 Albuterol Nebulized [Ventolin 2.5 mg INHALATION RT-TID 05/16/16 05/06/19 Nebulized] Ascorbic Acid [Vitamin C] 500 mg PO DAILY 05/16/16 05/06/19 Aspirin 325 mg PO DAILY 05/16/16 05/06/19 Budesonide-Formot 160-4.5 Mcg 2 puff INHALATION RT-BID 05/16/16 05/06/19 [Symbicort 160-4.5 Mcg Inhaler] FLUoxetine HCL [PROzac] 40 mg PO DAILY 05/16/16 05/06/19 Isosorbide Mononitrate [Isosorbide 30 mg PO DAILY 05/16/16 05/06/19 Mononitrate ER] Nitroglycerin Sl Tabs [Nitrostat] 0.4 mg SUBLINGUAL Q5M PRN 05/16/16 05/06/19 Tiotropium [place] [Spiriva] 1 cap INHALATION DAILY 05/16/16 05/06/19 amLODIPine BESYLATE/BENAZEPRIL 1 cap PO DAILY 05/16/16 05/06/19 [Lotrel 2.5-10 MG] metFORMIN HCL [Glucophage] 500 mg PO DAILY 05/16/16 05/06/19 Albuterol Sulfate [Proair Hfa] 2 puff INHALATION RT-Q6H PRN 04/17/19 05/06/19 C,E,Zinc,Copper 11/Udjar9b/Lut 1 cap PO DAILY 04/17/19 05/06/19 [Ocuvite Adult 50 Plus Softgel] Chuckie/D3/Mag11/Zinc/Wheat Grower/Jasper/Bor 1 tab PO BID 04/17/19 05/06/19 [Caltrate 600+D Plus Tablet] Levothyroxine Sodium [Synthroid] 25 mcg PO DAILY 04/17/19 05/06/19 Multivitamins, Thera [Multivitamin 1 tab PO DAILY 04/17/19 05/06/19 (formulary)] Nystatin 100,000Unit/gm Cream 1 applic TOPICAL BID PRN 04/17/19 05/06/19 [Mycostatin Cream] Pravastatin Sodium [Pravachol] 10 mg PO Q48H 04/17/19 05/06/19 buPROPion HCL [buPROPion HCL ER] 200 mg PO DAILY 04/17/19 05/06/19 Previous Rx's Medication Instructions Recorded Acetaminophen Tab [Tylenol Tab] 650 mg PO Q4H PRN #30 tablet 05/13/19 Levofloxacin [Levaquin] 500 mg PO DAILY 5 Days #5 tab 05/16/19 Allergies Allergy/AdvReac Type Severity Reaction Status Date / Time No Known Allergies Allergy Verified 05/18/19 07:55 Review of Systems ROS Statement: Those systems with pertinent positive or pertinent negative responses have been documented in the HPI. ROS Other: All systems not noted in ROS Statement are negative. Past Medical History Past Medical History: Asthma, Chest Pain / Angina, COPD, Diabetes Mellitus, Hyperlipidemia, Hypertension, Thyroid Disorder Additional Past Medical History / Comment(s): Hx irreg HR. "Poor circulation in feet, NT in toes." WHEN REALLY SHORT OF BREATH GETS CP. HX ULCERATIVE COLITIS, HAS ILEOSTOMY, current parastomal hernia. Bruising on arms. History of Any Multi-Drug Resistant Organisms: None Reported Past Surgical History: Bowel Resection, Cholecystectomy, Heart Catheterization Additional Past Surgical History / Comment(s): HAS ILEOSTOMY, REASSIGNED IT LATER D/T HERNIATION. Past Anesthesia/Blood Transfusion Reactions: No Reported Reaction Past Psychological History: Anxiety, Depression Smoking Status: Current every day smoker Past Alcohol Use History: None Reported Past Drug Use History: None Reported - Past Family History Father Family Medical History: Cancer, COPD, Deep Vein Thrombosis (DVT) Additional Family Medical History / Comment(s): Father at age 83 from either a stroke or [place]. Sister(s) Family Medical History: Cancer, CVA/TIA Additional Family Medical History / Comment(s): Patient has 2 sisters one has history of CVA in her 40s, ulcerative colitis with ileostomy. One sister with no major medical problems. Brother(s) Family Medical History: Cancer Additional Family Medical History / Comment(s): Patient has 2 brothers one has passed from tongue cancer, one is alive with no major medical problems other than osteoarthritis. Mother Family Medical History: Diabetes Mellitus, Renal Disease Additional Family Medical History / Comment(s): Mother is at age 83 from renal failure with history of diabetes. Patient does not have any children. General Exam Limitations: no limitations General appearance: alert, in no apparent distress Head exam: Present: atraumatic, normocephalic, normal inspection Eye exam: Present: normal appearance, PERRL, EOMI. Absent: scleral icterus, conjunctival injection, periorbital swelling ENT exam: Present: normal exam, mucous membranes moist Neck exam: Present: normal inspection. Absent: tenderness, meningismus, lymphadenopathy Respiratory exam: Present: normal lung sounds bilaterally. Absent: respiratory distress, wheezes, rales, rhonchi, stridor Cardiovascular Exam: Present: regular rate, normal rhythm, normal heart sounds. Absent: systolic murmur, diastolic murmur, rubs, gallop, clicks GI/Abdominal exam: Present: soft, normal bowel sounds, other ([facility] in place, incision healing well no extensive erythema there is leaking noted around the ostomy, mild skin breakdown noted). Absent: distended, tenderness, guarding, rebound, rigid Neurological exam: Present: alert, oriented X3 Skin exam: Present: warm, dry, intact, normal color. Absent: rash Course Vital Signs 05/18/19 07:52 Temperature 98.4 F Pulse Rate 91 Respiratory 16 Rate Blood Pressure 136/90 O2 Sat by Pulse 96 Oximetry Medical Decision Making - Medical Decision Making Patient presented for colostomy leaking, nurse educator came and helped patient to with new bag, skin care. Patient will be discharged in stable condition with follow-up with his surgeon. Disposition Clinical Impression: Colostomy dysfunction Disposition: HOME SELF-CARE Condition: Stable Instructions (If sedation given, give patient instructions): Colostomy Care (ED) Additional Instructions: Please return to the Emergency Department if symptoms worsen or any other concerns. Is patient prescribed a controlled substance at d/c from ED?: No Referrals: Justin Angeles MD [Primary Care Provider] - 1-2 days Time of Disposition: 08:56
== END 2019-05-18 09:10 | disposition home or self-care (01) ==
LOC: EC 07:43
DX: K94.03 Colostomy malfunction (principal); J44.9 Chronic obstructive pulmonary disease, unspecified; E11.9 Type 2 diabetes mellitus without complications; I10 Essential (primary) hypertension; E78.5 Hyperlipidemia, unspecified; F41.9 Anxiety disorder, unspecified; F32.9 Major depressive disorder, single episode, unspecified; E07.9 Disorder of thyroid, unspecified; F17.200 Nicotine dependence, unspecified, uncomplicated; Z79.84 Long term (current) use of oral hypoglycemic drugs; Z79.890 Hormone replacement therapy; Z79.899 Other long term (current) drug therapy; Z79.82 Long term (current) use of aspirin; Z79.51 Long term (current) use of inhaled steroids; Z90.49 Acquired absence of other specified parts of digestive tract
CPT/HCPCS: 99282

== ENCOUNTER → 2020-02-24 | Outpatient (CLI) | payer MEDICARE ==
[2020-02-24 09:59] LABS: Basophils % (A) 1 %; Eosinophils # (A) 0.2 k/uL (0-0.7); Eosinophils % (A) 2 %; HCT 50.7 % (39.0-53.0); HGB 17.1 gm/dL (13.0-17.5); Lymphocytes % (A) 20 %; MCHC 33.7 g/dL (31.0-37.0); MCV 89.1 fL (80.0-100.0); Mean Platelet Volume 6.4; Monocytes # (A) 0.7 k/uL (0-1.0); Monocytes % (A) 7 %; Neutrophils # (A) 6.8 k/uL (1.3-7.7); Neutrophils % (A) 69 %; Platelet Count 283 k/uL (150-450); RBC 5.69 m/uL (4.30-5.90); RDW 13.5 % (11.5-15.5); WBC 9.8 k/uL (3.8-10.6)
[2020-02-24 16:48] LABS: African American GFR (CKD) 87.4 (60.0-200.0); Albumin 4.5 g/dL (3.80-4.90); Albumin/Globulin Ratio 2.14 (1.60-3.17); Anion Gap 8.2 mmol/L (4.00-12.00); Calcium 9.6 mg/dL (8.7-10.3); Carbon Dioxide 27.8 mmol/L (21.6-31.8); Chol/HDL Ratio 3.2; Globulin 2.1 g/dL (1.6-3.3); LDL Cholesterol,Calculated 67.8 mg/dL (0.0-131.0); Non-African American GFR(CKD) 75.4 (60.0-200.0); Potassium 4.9 mmol/L (3.5-5.5); Total Bilirubin 0.7 mg/dL (0.3-1.2); Total Protein 6.6 g/dL (6.2-8.2); VLDL Calculation 44.2 mg/dL (5.00-40.00)
[2020-02-24 16:55] LABS: PSA Annual Screen 2.6 ng/mL (0.0-4.0)
== END | disposition home or self-care (01) ==
LOC: LABWHC1 08:32
PROVIDERS: ATTEND Family Medicine
DX: I10 Essential (primary) hypertension (principal); E78.00 Pure hypercholesterolemia, unspecified; E03.9 Hypothyroidism, unspecified; E55.9 Vitamin D deficiency, unspecified; E11.9 Type 2 diabetes mellitus without complications; Z12.5 Encounter for screening for malignant neoplasm of prostate
CPT/HCPCS: 80061; 80053; 84443; 85025; 82306; 83036; 36415; G0103

== ENCOUNTER → 2020-05-17 | Outpatient (CLI) | payer MEDICARE | END | disposition home or self-care (01) | LOC: LABWHC1 08:32 | PROVIDERS: ATTEND Otolaryngology | DX: Z01.812 Encounter for preprocedural laboratory examination (principal); Z20.822 Contact with and (suspected) exposure to COVID-19 | CPT/HCPCS: U0003; C9803; U0005 ==

== ENCOUNTER → 2020-08-01 | Outpatient (CLI) | payer MEDICARE ==
[2020-08-01 12:42] LABS: HCT 47.1 % (39.0-53.0); HGB 15.2 gm/dL (13.0-17.5); MCH 29.4 pg (25.0-35.0); MCHC 32.3 g/dL (31.0-37.0); MCV 90.8 fL (80.0-100.0); Mean Platelet Volume 6.6; Platelet Count 286 k/uL (150-450); RBC 5.19 m/uL (4.30-5.90); RDW 14.1 % (11.5-15.5); WBC 10.9 k/uL (3.8-10.6)
[2020-08-01 12:56] LABS: African American GFR (CKD) >90 (>60 ml/min/1.73 sqM); Anion Gap 5 mmol/L; Blood Urea Nitrogen 18 mg/dL (9-20); Carbon Dioxide 31 mmol/L (22-30); Chloride 103 mmol/L (98-107); Non-African American GFR(CKD) 78 (>60 ml/min/1.73 sqM); Potassium 4.9 mmol/L (3.5-5.1); Sodium 139 mmol/L (137-145)
== END | disposition home or self-care (01) ==
LOC: LABPAT 11:49
PROVIDERS: ATTEND Internal Medicine Clinical Cardiac Electrophysiology
DX: Z01.812 Encounter for preprocedural laboratory examination (principal); I47.2 Ventricular tachycardia
CPT/HCPCS: 36415; 80051; 82565; 84520; 85027

== ENCOUNTER 2020-08-06 11:48 | Day surgery (SDC) | payer MEDICARE ==
[2020-08-02 15:42] VITALS: BMI 30.1
[~2020-08-06 11:48] MED LIST: LACTATED RINGERS 1,000 ML IV SCH; SODIUM CHLORIDE 0.9% 1,000 ML IV SCH
[2020-08-06 12:15] LABS: Glucose,Whole Blood 139 mg/dL (75-99)
[2020-08-06] MEDS ORDERED: FUROSEMIDE 10 MG/ML 2 ML VIAL ONE (13:07)
[2020-08-06] MEDS ORDERED: HEPARIN SODIUM,PORCINE 10,000 UNIT/ML 1 ML VIAL ONE (13:07)
[2020-08-06] MEDS ORDERED: PROTAMINE SULFATE 10 MG/ML 5 ML VIAL IV ONE (13:07)
[2020-08-06] MEDS ORDERED: HYDROmorphone (PF) 1 MG/ML ONE (13:07)
[2020-08-06] MEDS ORDERED: PROPOFOL 10 MG/ML 20 ML VIAL IV ONE (13:07)
[2020-08-06] MEDS ORDERED: MIDAZOLAM 2 MG/2 ML VIAL ONE (13:07)
[2020-08-06] MEDS ORDERED: ISOPROTERENOL 250 MCG/1.25 ML SYR IV ONE (13:07)
[2020-08-06] MEDS ORDERED: fentaNYL (PF) 50 MCG/ML 2 ML AMP ONE (13:07)
--- NOTE | 2020-08-06 13:12 | P.HPCAR ---
History of Present Illness This is Dr. Link dictating an H/P on this patient The patient was interviewed and examined IMPRESSION / ASSESSMENT: Recurrent slow ventricular tachycardia with mild dizziness and chest discomfort Normal LV size and function, normal RV size and function Hypertension Diabetes Severe obstructive lung disease PLAN: Diagnostic EP study to induce slow ventricular tachycardia for activation mapping and ablation if feasible HPI Patient has had recurrent episodes of slow VT at about 110-120 beats a minute No loss of consciousness but he does get a bit dizzy off and on and has a vague discomfort in the chest at that time Previously in 2017 he had normal coronary arteries with minimal block Structurally normal heart and normal LV and normal RV size and function History of kyphosis History of obstructive lung disease Currently no shortness of breath at rest no cough expectoration no chest discomfort From a pulmonary standpoint, the patient states that he is quite comfortable and stable ROS: No fever chills or rigors, no cough, phlegm or expectoration, no nausea, vomiting or diarrhea, no hematuria, dysuria, no musculoskeletal complaints, no strokes or seizures, no skin lesions. EXAMINATION: 98.3F, pulse rate in the 70s, respirations 16-18 and nonlabored Blood pressure 135/81 mmHg Heart sounds are soft normal S1 normal S2 no murmurs Breath sounds are reduced bilaterally but there are no rhonchi no crackles No JVD No orthopnea Abdomen is soft nontender No lower extremity edema REVIEW OF LABS, ECG & MEDICAL DATA Glucose 139 Physical Exam Vitals: Vital Signs Temp Pulse Resp BP Pulse Ox 08/06/20 12:05 98.3 F 77 18 135/81 95 Intake and Output 08/05/20 08/06/20 08/06/20 22:59 06:59 14:59 Intake Total 20 Balance 20 Intake: IV 20 Past Medical History Past Medical History: Asthma, Chest Pain / Angina, COPD, Diabetes Mellitus, Eye Disorder, GERD/Reflux, Hyperlipidemia, Hypertension, Thyroid Disorder Additional Past Medical History / Comment(s): Hx irreg HR. Edema BLE; "damage in nerves in feet, NT in toes." Hx Ulerative colitis, has ileostomy. Glaucoma, early. History of Any Multi-Drug Resistant Organisms: None Reported Past Surgical History: Bowel Resection, Cholecystectomy, Heart Catheterization Additional Past Surgical History / Comment(s): 1998 ILEOSTOMY; 01/2009 & 04/2019 REASSIGNED D/T HERNIATION. 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 Past Anesthesia/Blood Transfusion Reactions: Previous Problems w/ Anesthesia Additional Past Anesthesia/Blood Transfusion Reaction / Comment(s): Confused, hallucinating, nightmares after surg 04/2019. Smoking Status: Current every day smoker, Light tobacco smoker - Past Family History Father Family Medical History: Cancer, COPD, Deep Vein Thrombosis (DVT) Additional Family Medical History / Comment(s): Lung cancer, varicose veins. Father at age 83 from either a stroke or [place]. Sister(s) Family Medical History: Cancer, CVA/TIA Additional Family Medical History / Comment(s): Non-hodgkin's lymphoma. has 2 sisters one has history of CVA in her 40s, ulcerative colitis with ileostomy. One sister with no major medical problems. Brother(s) Family Medical History: Cancer Additional Family Medical History / Comment(s): Patient has 2 brothers one has passed from tongue cancer, one is alive with no major medical problems other than osteoarthritis. Mother Family Medical History: Diabetes Mellitus, Renal Disease Additional Family Medical History / Comment(s): Mother is at age 83 from renal failure with history of diabetes. Patient does not have any children. Physical Examination Vital Signs Temp Pulse Resp BP Pulse Ox 08/06/20 12:05 98.3 F 77 18 135/81 95 Intake and Output 08/05/20 08/06/20 08/06/20 22:59 06:59 14:59 Intake Total 20 Balance 20 Intake: IV 20 Results Current Medications Generic Name Dose Route Start Last Admin Trade Name Freq PRN Reason Stop Dose Admin Lactated Ringer's 1,000 mls @ 20 mls/hr 08/06/20 06:09 Lactated Ringers IV 09/05/20 06:10 .Q24H NINI Sodium Chloride 1,000 mls @ 50 mls/hr 08/06/20 06:09 08/06/20 12:17 Saline 0.9% IV 09/05/20 06:10 20 mls .Q20H NINI Administration Intake and Output 08/05/20 08/06/20 08/06/20 22:59 06:59 14:59 Intake Total 20 Balance 20 Intake: IV 20
[2020-08-06] MEDS ORDERED: LIDOCAINE 1% INJ 10MG/ML (20 ML MDV) SQ ONE ×2 (13:44→15:07)
[2020-08-06] MEDS ORDERED: LIDOCAINE 1% INJ 10MG/ML (20 ML MDV) ONE ×2 (15:06→17:10)
[2020-08-06] MEDS ORDERED: HEPARIN SODIUM (1,000 UNIT/ML) 1,000 UNIT in SODIUM CHLORIDE 0.9% 1,000 ML IRRIGATION ONE (15:11)
[2020-08-06] MEDS ORDERED: HEPARIN SOD,PORK IN 0.45% NACL 25,000 UNIT in 0.45% NACL 1 250ML.BAG IV ONE (15:11)
[2020-08-06] MEDS ORDERED: IOPAMIDOL-370 100ML BTL INTRATHECA ONE (17:07)
[2020-08-06] MEDS ORDERED: ALPRAZolam 1 MG TAB PO PRN (17:21)
[2020-08-06] MEDS ORDERED: SODIUM CHLORIDE 0.9% 500 ML 500 ML IV ONE (17:24)
[2020-08-06] MEDS ORDERED: ACETAMINOPHEN IV (For NPO) 1,000 MG in EMPTY BAG 1 BAG IVPB ONE (17:24)
[2020-08-06] MEDS ORDERED: ACETAMINOPHEN TAB 325 MG TAB PO PRN (17:24)
[2020-08-06] MEDS ORDERED: HYDROcodone/APAP 5-325MG 1 EACH TAB PO PRN (17:24)
--- NOTE | 2020-08-06 17:40 | P.EPPROC ---
- EP Procedure Note Electrophysiology Procedure Note: Diagnosis Recurrent slow ventricular tachycardia, symptomatic, on beta blockers Result Easily inducible ventricular tachycardia on Isuprel Focal, originating from the left ventricular outflow tract anterior wall were just beyond the junction of the right and left aortic cusps Successful mapping and ablation of ventricular tachycardiaTachycardias rendered noninducible Procedure details Patient was brought to the EP lab in a fasting state. Written informed consent was obtained prior to the procedure. The procedure was performed under mild conscious sedation for/MAC Venous sheaths were placed in the right left femoral veins. Later right femoral arterial catheter was placed in the right femoral artery for hemodynamic monitoring The patient's blood pressure remained stable through the procedure as well as to the end of the procedure Diagnostic catheter placed in the right atrium coronary sinus, RV and His bundle area and in the left ventricle Sinus cycle length 727 ms, [place] interval 157 ms, QRS 99 ms and QT 380 ms AH interval 69 ms and HV interval 41 ms Sinus recovery times at 600, 504 100 ms were 959, 1023 and 985 ms. It induction no delta waves AV node Wenckebach block 370 ms from the high right atrium VA Wenckebach block for 40 ms Kendall response to Parahisian pacing. JUNE time 120 ms Ventricular stimulation protocol protocol without Isuprel Burst ablation and ventricular system ablation of a triple extrastimuli, 2 drive trains No VT induced Isuprel started and VT was induced spontaneously on Isuprel QRS width 121 ms Right bundle branch block like morphology, tall upright in V1 Tall upright in inferior leads Upright in lead 1 and negative in both aVR and aVL All precordial leads were positive Mapping of the left ventricle was performed Intracardiac echo was used to mapped the aortic cusps and the aortic root as well as the LVOT No pericardial effusion Normal LV function Voltage mapping of the left ventricle was performed Normal voltage noted in the LVOT area Pace mapping was performed and a 97% concordance was noted chest beyond the right and left cusp commissure, in the LVOT RF ablation was performed at 30-40 W Thereafter Isuprel was used once again on 2 separate occasions but no further VT could be used Angio-Seal was used to close the right femoral artery puncture site Venous sheaths were removed Patient THE procedure well without any acute complications. Blood pressure is stable with no pericardial effusion The aorta was interrogated with intracardiac echo no injury noted No intimal flap noted
--- NOTE | 2020-08-06 17:43 | P.PRLE ---
RE: Kalen Freeman Dear Justin Freeman underwent a diagnostic EP study and ventricular tachycardia was very easily inducible on Isuprel This was mapped to the left ventricular outflow tract, anterior wall just be on the aortic cusps Successful ablation was performed At the successful site and 97% concordance with the clinical tachycardia noted Thereafter the tachycardia could not be induced any further I would continue aspirin and all other cardiac medications Thank you for entrusting me with the care of the patient Warm regards Sincerely Yao Link
[2020-08-06 18:48] LABS: ALT 19 U/L (4-49); AST 44 U/L (17-59); African American GFR (CKD) >90 (>60 ml/min/1.73 sqM); Albumin 3.5 g/dL (3.5-5.0); Albumin/Globulin Ratio 1.3; Alkaline Phosphatase 68 U/L (38-126); Anion Gap 5 mmol/L; Blood Urea Nitrogen 11 mg/dL (9-20); Calcium 8.1 mg/dL (8.4-10.2); Carbon Dioxide 26 mmol/L (22-30); Chloride 108 mmol/L (98-107); Globulin 2.6 g/dL; Glucose 95 mg/dL (74-99); Non-African American GFR(CKD) >90 (>60 ml/min/1.73 sqM); Sodium 139 mmol/L (137-145); Total Bilirubin 0.6 mg/dL (0.2-1.3); Total Protein 6.1 g/dL (6.3-8.2)
[2020-08-06] MEDS: SYMBICORT 160-4.5 MCG INHALER INHALATION SCH (19:08)
[2020-08-06 21:10] LABS: Glucose,Whole Blood 101 mg/dL (75-99)
[2020-08-06] MEDS: METOPROLOL TARTRATE 25 MG TAB PO SCH (21:23)
[2020-08-07] MEDS ORDERED: LEVOTHYROXINE 25 MCG TAB PO SCH (06:30)
[2020-08-07 07:07] LABS: Glucose,Whole Blood 120 mg/dL (75-99)
[2020-08-07 07:35] VITALS: BP 125/72; RESP 18; TEMP 97.6
[2020-08-07] MEDS: METOPROLOL TARTRATE 25 MG TAB PO SCH (08:28)
[2020-08-07] MEDS: SYMBICORT 160-4.5 MCG INHALER INHALATION SCH (08:42)
[2020-08-07] MEDS: IPRATROPIUM 0.5 MG/2.5 ML NEBU INHALATION SCH ×2 (08:42→12:10)
[2020-08-07 08:52] VITALS: PULSE 68
[2020-08-07] MEDS ORDERED: ASPIRIN 325 MG TAB PO SCH (09:00)
[2020-08-07] MEDS ORDERED: lisinopriL 10 MG TAB PO SCH (09:00)
[2020-08-07] MEDS ORDERED: amLODIPine 2.5 MG TAB PO SCH (09:00)
[2020-08-07] MEDS ORDERED: FLUoxetine HCL 20 MG CAP PO SCH (09:00)
[2020-08-07] MEDS ORDERED: buPROPion SR 100 MG TABLET.ER PO SCH (09:00)
[2020-08-07 11:34] LABS: Glucose,Whole Blood 105 mg/dL (75-99)
--- NOTE | 2020-08-07 13:40 | P.DS ---
Providers Attending physician: Yao Link Primary care physician: Justin Fajardo [facility] Course: Patient is resting comfortably in bed. He has been ablating around in his room up to the bathroom No chest discomfort dizziness lightheadedness no palpitations Groins of healed well no hematoma no swelling, minimal tenderness Heart sounds S1 and S2 are normal Breath sounds are clear no rhonchi no crackles Abdomen soft nontender Blood pressure 125/72 mmHg pulse rate in the 60s temperature 97.6F Impression Easily inducible ventricular tachycardia from the left ventricular outflow tract anterior wall, just beyond the left and right aortic cusps Successful RF ablation VT was rendered noninducible Plan Discharge home today Continue current medications Follow-up Dr. Painter in about 2 weeks Plan - Discharge Summary Discharge Rx Participant: No New Discharge Prescriptions: Continue amLODIPine BESYLATE/BENAZEPRIL [Lotrel 2.5-10 MG] 1 cap PO DAILY Aspirin 325 mg PO DAILY Ascorbic Acid [Vitamin C] 500 mg PO DAILY Budesonide-Formot 160-4.5 Mcg [Symbicort 160-4.5 Mcg Inhaler] 2 puff INHALATION RT-BID ALPRAZolam [Xanax] 1 mg PO TID PRN PRN Reason: Anxiety metFORMIN HCL [Glucophage] 500 mg PO DAILY FLUoxetine HCL [PROzac] 40 mg PO DAILY Tiotropium [place] [Spiriva] 1 cap INHALATION DAILY Nitroglycerin Sl Tabs [Nitrostat] 0.4 mg SUBLINGUAL Q5M PRN PRN Reason: Chest Pain Albuterol Sulfate [Proair Hfa] 2 puff INHALATION RT-Q6H Pravastatin Sodium [Pravachol] 10 [facility] Chuckie/D3/Mag11/Zinc/Senior Telecommunications Specialist/Jasper/Bor [Caltrate 600+D Plus Tablet] 1 tab PO BID C,E,Zinc,Copper 11/Sicei7l/Lut [Ocuvite Adult 50 Plus Softgel] 1 cap PO DAILY Multivitamins, Thera [Multivitamin (formulary)] 1 tab PO DAILY Levothyroxine Sodium [Synthroid] 25 mcg PO DAILY buPROPion HCL [buPROPion HCL ER] 200 mg PO DAILY Acetaminophen Tab [Tylenol] 650 mg PO Q4H PRN #30 tablet PRN Reason: Pain Fish Oil/Dha/Epa [Fish Oil 1,200 mg Fish Oil] 1 each PO DAILY Metoprolol Tartrate [Lopressor] 25 mg PO BID Discharge Medication List ALPRAZolam [Xanax] 1 mg PO TID PRN 05/16/16 [History] Ascorbic Acid [Vitamin C] 500 mg PO DAILY 05/16/16 [History] Aspirin 325 mg PO DAILY 05/16/16 [History] Budesonide-Formot 160-4.5 Mcg [Symbicort 160-4.5 Mcg Inhaler] 2 puff INHALATION RT-BID 05/16/16 [History] FLUoxetine HCL [PROzac] 40 mg PO DAILY 05/16/16 [History] Nitroglycerin Sl Tabs [Nitrostat] 0.4 mg SUBLINGUAL Q5M PRN 05/16/16 [History] Tiotropium [place] [Spiriva] 1 cap INHALATION DAILY 05/16/16 [History] amLODIPine BESYLATE/BENAZEPRIL [Lotrel 2.5-10 MG] 1 cap PO DAILY 05/16/16 [History] metFORMIN HCL [Glucophage] 500 mg PO DAILY 05/16/16 [History] Albuterol Sulfate [Proair Hfa] 2 puff INHALATION RT-Q6H 04/17/19 [History] C,E,Zinc,Copper 11/Zrckc4z/Lut [Ocuvite Adult 50 Plus Softgel] 1 cap PO DAILY 04/17/19 [History] Chuckie/D3/Mag11/Zinc/Senior Telecommunications Specialist/Jasper/Bor [Caltrate 600+D Plus Tablet] 1 tab PO BID 04/17/19 [History] Levothyroxine Sodium [Synthroid] 25 mcg PO DAILY 04/17/19 [History] Multivitamins, Thera [Multivitamin (formulary)] 1 tab PO DAILY 04/17/19 [History] Pravastatin Sodium [Pravachol] 10 mg PO [place] 04/17/19 [History] buPROPion HCL [buPROPion HCL ER] 200 mg PO DAILY 04/17/19 [History] Acetaminophen Tab [Tylenol] 650 mg PO Q4H PRN #30 tablet 05/13/19 [Rx] Fish Oil/Dha/Epa [Fish Oil 1,200 mg Fish Oil] 1 each PO DAILY 08/02/20 [History] Metoprolol Tartrate [Lopressor] 25 mg PO BID 08/02/20 [History] Follow up Appointment(s)/Referral(s): Paddy Painter MD [STAFF PHYSICIAN] - 1 Week (Appointment scheduled for 08/13/20 at 2:00 PM at the [facility] Patient Instructions/Handouts: Electrophysiology Study (DC), Cardiac Ablation (DC), Type 2 Diabetes in the Older Adult (DC) Activity/Diet/Wound Care/Special Instructions: My EP instructions No change in medications other than stopping fish oil Continue 325 mg aspirin Discharge Disposition: HOME SELF-CARE
[2020-08-07] MEDS ORDERED: PRAVASTATIN SODIUM 20 MG TAB PO SCH (21:00)
[2020-08-08] MEDS ORDERED: metFORMIN 500 MG TAB PO SCH (18:00)
== END 2020-08-07 12:35 | disposition home or self-care (01) ==
LOC: CATHEP 11:48 → 6NMEDSUR 17:35 → CATHEP 08-07 12:35
PROVIDERS: ATTEND Internal Medicine Clinical Cardiac Electrophysiology
DX: I47.2 Ventricular tachycardia (principal); E11.9 Type 2 diabetes mellitus without complications; K21.9 Gastro-esophageal reflux disease without esophagitis; I10 Essential (primary) hypertension; E78.5 Hyperlipidemia, unspecified; F17.210 Nicotine dependence, cigarettes, uncomplicated; H40.9 Unspecified glaucoma; Z20.822 Contact with and (suspected) exposure to COVID-19; E07.9 Disorder of thyroid, unspecified; Z79.899 Other long term (current) drug therapy; Z79.84 Long term (current) use of oral hypoglycemic drugs; Z79.82 Long term (current) use of aspirin; Z79.890 Hormone replacement therapy; Z79.51 Long term (current) use of inhaled steroids
CPT/HCPCS: 94640 ×2; 93623; 93662; 93654; 80053; 84443; 87635; C1759; C1760; C1894; C1769 ×2; C1730 ×3; C1893; C1732; J2250; J2720; J1644 ×3; J1940; S0106; J2001; J3010; J1170; J0131; J2704; Q9967

== ENCOUNTER → 2022-02-11 | Outpatient (CLI) | payer MEDICARE ==
[2022-02-11 18:28] LABS: African American GFR (CKD) 97.9 (60.0-200.0); Albumin/Globulin Ratio 1.74 (1.60-3.17); Anion Gap 11.8 mmol/L (10.00-18.00); Calcium 9.1 mg/dL (8.7-10.3); Carbon Dioxide 20.2 mmol/L (20.0-27.5); Globulin 2.3 g/dL (1.6-3.3); Non-African American GFR(CKD) 84.4 (60.0-200.0); Potassium 4.7 mmol/L (3.5-5.5); Total Bilirubin 0.3 mg/dL (0.30-1.20); Total Protein 6.3 g/dL (6.2-8.2)
== END | disposition home or self-care (01) ==
LOC: LABWHC1 10:33
PROVIDERS: ATTEND Internal Medicine Gastroenterology
DX: K85.90 Acute pancreatitis without necrosis or infection, unspecified (principal)
CPT/HCPCS: 36415; 80053; 82150; 83690

== ENCOUNTER → 2022-02-13 | Outpatient (CLI) | payer MEDICARE ==
--- NOTE | 2022-02-15 10:25 | MR ---
EXAMINATION TYPE: MR pancreas wo/w con DATE OF EXAM: 02/13/2022 10:29 AM INDICATION: Patient age:Male; 71 years old; Reason for study: K85.90PANCREATITIS WITHOUT NECROSIS OR INFECTION; Pancreatitis. COMPARISON: CT scan abdomen from 04/17/2019 TECHNIQUE: Multiplanar multi-sequence imaging was performed without contrast. Post contrast imaging was performed. Post IV contrast subtraction images were also submitted for review. IV Contrast: 9 cc Gadavist FINDINGS: LOWER CHEST: No gross irregularity. ABDOMEN Liver: Tiny probable hepatic cysts. Gallbladder and Bile ducts: The gallbladder is not visualized and may likely surgically absent. Pancreas: Pancreatic gland is somewhat atrophic appearance with scattered small cystic changes and a tortuous beaded appearance of the main pancreatic duct. Postcontrast imaging demonstrates no evidence for suspicious postcontrast enhancement. Neurologic cystic structure in the pancreatic neck measurin g 5 mm and in the pancreatic head/uncinate process measuring up to 8 mm. Spleen: Inferior left hepatic cyst. Adrenal glands: Unremarkable. Kidneys: Bilateral left lower pole renal cyst measuring 7.1 x 3.7 cm. Right subcentimeter renal cysts which are high T2 signal measuring up to 8 mm. Stomach and Bowel: Unremarkable as visualized. Peritoneum: No evidence of pneumoperitoneum, free fluid, or adenopathy. Vasculature: Unremarkable. No aortic aneurysm. Musculoskeletal: The osseous structures appear intact. Abdominal wall: Left lower abdominal wall parastomal hernia containing loops of small bowel with osto my present. Prior right lower quadrant ostomy has been surgically repaired. IMPRESSION: 1. Atrophic pancreatic parenchyma gland with tortuous main pancreatic duct. Scattered cystic lesions could represent sequela prior pancreatitis versus intraductal papillary mucinous neoplasms. Overall findings of main ductal dilatation have progressed from prior CT on 04/17/2019 giving differences in [place]. Consider ERCP to rule out ampullary lesion/obstruction. Also consider follow-up imaging in o ne year with MRI MRCP. 2. Left lower quadrant parastomal hernia containing loops of small bowel. No evidence of obstruction . 3. Bilobed left inferior renal cyst.
== END | disposition home or self-care (01) ==
LOC: RADMRIMAIN 09:07
PROVIDERS: ATTEND Internal Medicine Gastroenterology
DX: N28.1 Cyst of kidney, acquired (principal); K86.89 Other specified diseases of pancreas; K43.5 Parastomal hernia without obstruction or gangrene; K85.90 Acute pancreatitis without necrosis or infection, unspecified
CPT/HCPCS: 74183; A9585

== ENCOUNTER 2022-03-07 05:38 | Observation (INO) | payer MEDICARE ==
[2022-03-07] MEDS ORDERED: SODIUM CHLORIDE 0.9% 500 ML 500 ML IV STA (06:20)
--- NOTE | 2022-03-07 06:26 | ED ---
Abdominal Pain HPI - General Chief Complaint: Abdominal Pain Stated Complaint: Flank pain, back pain Time Seen by Provider: 03/07/22 06:06 Source: patient, RN notes reviewed, old records reviewed Mode of arrival: ambulatory Limitations: no limitations - History of Present Illness Initial Comments: This is a well-appearing 71-year-old male that presents with complaints of upper abdominal pain that feels like gas in the right upper quadrant and radiates over to the left upper quadrant. Patient states pain started yesterday after eating a peanut butter sandwich. He states pain has been improving. He states that he does have a history of pancreatitis and is concern for recurrence. He does see Dr. Amador and he had a MRI of the pancreas on February 13, he has not had his follow-up appointment with her yet. Patient also has a history of cholecys tectomy, ulcerative colitis with an ileostomy, asthma, COPD, hypertension, diabetes, depression and V. tach Complaint: abdominal pain -: days(s) (1) Location: LUQ, RUQ Radiation: none Severity scale (1-10): 3 Quality: other ("gas pain") Consistency: other (improving) Associated Symptoms: nausea - Related Data Home Medications Medication Instructions Recorded Confirmed ALPRAZolam [Xanax] 1 mg PO TID PRN 05/16/16 03/07/22 FLUoxetine HCL [PROzac] 40 mg PO DAILY 05/16/16 03/07/22 Nitroglycerin Sl Tabs [Nitrostat] 0.4 mg SUBLINGUAL Q5M PRN 05/16/16 03/07/22 amLODIPine BESYLATE/BENAZEPRIL 1 cap PO DAILY 05/16/16 03/07/22 [Lotrel 2.5-10 MG] metFORMIN HCL [Glucophage] 500 mg PO BID 05/16/16 03/07/22 Albuterol Sulfate [Proair Hfa] 2 puff INHALATION RT-Q6H PRN 04/17/19 03/07/22 C,E,Zinc,Copper 11/Tapjc4b/Lut 1 cap PO DAILY 04/17/19 03/07/22 [Ocuvite Adult 50 Plus Softgel] Levothyroxine Sodium [Synthroid] 25 mcg PO DAILY 04/17/19 03/07/22 Pravastatin Sodium [Pravachol] 10 mg PO HS 04/17/19 03/07/22 Metoprolol Tartrate [Lopressor] 25 mg PO BID 08/02/20 03/07/22 Aspirin EC [Ecotrin Low Dose] 81 mg PO DAILY 03/07/22 03/07/22 Fluticasone/Umeclidin/Vilanter 1 puff INHALATION RT-DAILY@1200 03/07/22 03/07/22 [Trelegy Ellipta 100-62.5-25] Multivit-Min/FA/Lycopen/Lutein 1 tab PO DAILY 03/07/22 03/07/22 [Centrum Silver Men Tablet] Rivaroxaban [Xarelto] 20 mg PO DIRECTED 03/07/22 03/07/22 buPROPion HCL [buPROPion HCL SR] 100 mg PO DAILY 03/07/22 03/07/22 Allergies Allergy/AdvReac Type Severity Reaction Status Date / Time No Known Allergies Allergy Verified 03/07/22 05:42 Review of Systems ROS Statement: Those systems with pertinent positive or pertinent negative responses have been documented in the HPI. ROS Other: All systems not noted in ROS Statement are negative. Past Medical History Past Medical History: Asthma, Chest Pain / Angina, COPD, Diabetes Mellitus, Hyperlipidemia, Hypertension, Thyroid Disorder Additional Past Medical History / Comment(s): Hx irreg HR. "Poor circulation in feet, NT in toes." WHEN REALLY SHORT OF BREATH GETS CP. HX ULCERATIVE COLITIS, HAS ILEOSTOMY, current parastomal hernia. Bruising on arms. pancreatitis History of Any Multi-Drug Resistant Organisms: None Reported Past Surgical History: Bowel Resection, Cholecystectomy, Heart Catheterization Additional Past Surgical History / Comment(s): HAS ILEOSTOMY, REASSIGNED IT LATER D/T HERNIATION. Past Anesthesia/Blood Transfusion Reactions: No Reported Reaction Past Psychological History: Anxiety, Depression Smoking Status: Current every day smoker Past Alcohol Use History: None Reported Past Drug Use History: None Reported - Past Family History Father Family Medical History: Cancer, COPD, Deep Vein Thrombosis (DVT) Additional Family Medical History / Comment(s): Lung cancer, varicose veins. Father at age 83 from either a stroke or MD. Sister(s) Family Medical History: Cancer, CVA/TIA Additional Family Medical History / Comment(s): Non-hodgkin's lymphoma. has 2 sisters one has history of CVA in her 40s, ulcerative colitis with ileostomy. One sister with no major medical problems. Brother(s) Family Medical History: Cancer Additional Family Medical History / Comment(s): Patient has 2 brothers one has passed from tongue cancer, one is alive with no major medical problems other than osteoarthritis. Mother Family Medical History: Diabetes Mellitus, Renal Disease Additional Family Medical History / Comment(s): Mother is at age 83 from renal failure with history of diabetes. Patient does not have any children. General Exam Limitations: no limitations General appearance: alert, in no apparent distress Eye exam: Absent: periorbital swelling Neck exam: Absent: meningismus Respiratory exam: Absent: respiratory distress, accessory muscle use Cardiovascular Exam: Present: regular rate GI/Abdominal exam: Present: soft, other (ostomy with brown stool). Absent: distended, tenderness, rigid Extremities exam: Present: normal capillary refill. Absent: pedal edema Neurological exam: Present: alert, oriented X3 Psychiatric exam: Present: normal affect, normal mood Skin exam: Present: warm, dry, normal color. Absent: cyanosis, diaphoretic, petechiae, pallor Course Vital Signs 03/07/22 03/07/22 05:43 07:19 Temperature 97.9 F Pulse Rate 99 66 Respiratory 18 18 Rate Blood Pressure 128/78 127/80 O2 Sat by Pulse 98 98 Oximetry - Reevaluation(s) Reevaluation #1: 03/07/22 06:26 Patient offered pain medication or antiemetic and declined at this time Time: 06:26 Medical Decision Making - Medical Decision Making Patient is a history of asthma, COPD, hypertension, diabetes, ulcerative colitis with ileostomy, pancreatitis, ventricular tachycardia, daily smoker Abdominal pain started yesterday after eating a peanut butter sandwich. Describes the pain as right-sided gas-like. States did have nausea but no vomiting. Patient concerned for pancreatitis flare. Denies fevers and chills, no chest pain or difficulty in breathing, no hematochezia. MRI of the pancreas ordered by Dr Amador was performed on 02/13/2022 showing atrophic pancreatic parenchyma gland with tortuous main pancreatic duct. Scattered cystic lesions could represents probably prior pancreatitis versus intraductal papillary mucinous neoplasms. Overall findings of main ductal dilatation have progressed from prior CT in April 2019. Left lower quadrant parastomal hernia containing some loops of small bowel no obstruction. Labs show mild leukocytosis, amylase 133. Lactic acid negative at 1.3. Case discussed with Dr. Nagel, CT abdomen was ordered. CT of the abdomen and pelvis shows acute on chronic interstitial edematous pancreatitis with no peripancreatic collections. Duodenitis likely reactive to above. Left lower quadrant colostomy with parastomal hernia containing nonobstructive bowel. Gallbladder is surgically absent, with no biliary ductal dilatation. BISAP score 1 Patient will be admitted to the hospital with pancreatitis. Was pt. sent in by a medical professional or institution? @ -no Did you speak to anyone other than the patient for history? @ -no Did you review nursing and triage notes? @ -yes i agree Were old charts reviewed? @ -yes, MRI, labs, surgical records Differential Diagnosis? @ -Differential Abdominal Pain Men: Appendicitis, diverticulosis, ischemic bowel, pancreatitis, hepatitis, gastroenteritis, AAA, incarcerated hernia, bowel obstruction, constipation, inflammatory bowel, hepatitis, peptic ulcer disease, splenic infarction, perforated viscus, this is not meant to be an all-inclusive list EKG interpreted by me (3pts min.)? @ -[none] X-rays interpreted by me (1pt min.)? @ -[none] CT interpreted by me (1pt min.)? @ -no U/S interpreted by me (1pt. min.)? @ -[none] What testing was considered but not performed? (CT, X-rays, U/S, labs)? Why? @ none What meds were considered but not given? Why? @ -Pain meds and antiemetics were offered and patient declined. Antibiotics were considered however no infectious etiology was found Did you discuss the management of the patient with other professionals? @ -no Did you reconcile home meds? @ -[none] Was smoking cessation discussed for >3mins.? @ -no Was critical care preformed (if so, how long)? @ -no Were there social determinants of health that impacted care today? How? (Homelessness, low income, unemployed, alcoholism, drug addiction, transportation, low edu. Level, literacy, decrease access to med. care, usp, rehab)? @ -none Was there de-escalation of care discussed even if they declined? (Discuss DNR or withdrawal of care, Hospice)? @ -no What co-morbidities impacted this encounter? (DM, HTN, Smoking, COPD, CAD, Cancer, CVA, Hep., AIDS, mental health diagnosis, sleep apnea, morbid obesity)? @ -asthma, COPD, hypertension, diabetes, ulcerative colitis with ileostomy, pancreatitis, ventricular tachycardia Was patient admitted / discharged? @ -admitted Undiagnosed new problem with uncertain prognosis? @ -[none] Drug Therapy requiring intensive monitoring for toxicity (Heparin, Nitro, Insulin, Cardizem)? @ -no Were any procedures done? @ -no Diagnosis/symptom? @ -Pancreatitis Acute, or Chronic, or Acute on Chronic? @ -acute on chronic Uncomplicated (without systemic symptoms) or Complicated (systemic symptoms)? @ -Complicated Side effects of treatment? @ -[none] Exacerbation, Progression, or Severe Exacerbation] @ -[no] Poses a threat to life or bodily function? @ -[no] - Lab Data Result diagrams: 03/07/22 06:39 03/07/22 06:39 Lab Results 03/07/22 03/07/22 03/07/22 Range/Units 06:39 06:39 06:39 WBC 12.7 H (3.8-10.6) k/uL RBC 4.48 (4.30-5.90) m/uL Hgb 13.3 (13.0-17.5) gm/dL Hct 39.7 (39.0-53.0) % MCV 88.6 (80.0-100.0) fL MCH 29.7 (25.0-35.0) pg MCHC 33.5 (31.0-37.0) g/dL RDW 13.7 (11.5-15.5) % Plt Count 281 (150-450) k/uL MPV 6.9 Neutrophils % 77 % Lymphocytes % 14 % Monocytes % 7 % Eosinophils % 1 % Basophils % 0 % Neutrophils # 9.8 H (1.3-7.7) k/uL Lymphocytes # 1.8 (1.0-4.8) k/uL Monocytes # 0.9 (0-1.0) k/uL Eosinophils # 0.1 (0-0.7) k/uL Basophils # 0.0 (0-0.2) k/uL PT (9.0-12.0) sec INR (<1.2) APTT (22.0-30.0) sec Sodium 135 L (137-145) mmol/L Potassium 4.6 (3.5-5.1) mmol/L Chloride 109 H (98-107) mmol/L Carbon Dioxide 20 L (22-30) mmol/L Anion Gap 6 mmol/L BUN 21 H (9-20) mg/dL Creatinine 0.61 L (0.66-1.25) mg/dL Est GFR (CKD-EPI)AfAm >90 (>60 ml/min/1.73 sqM) Est GFR (CKD-EPI)NonAf >90 (>60 ml/min/1.73 sqM) Glucose 197 H (74-99) mg/dL Plasma Lactic Acid Kevin 1.3 (0.7-2.0) mmol/L Calcium 8.7 (8.4-10.2) mg/dL Total Bilirubin 0.6 (0.2-1.3) mg/dL AST 36 (17-59) U/L ALT 29 (4-49) U/L Alkaline Phosphatase 78 (38-126) U/L Total Protein 6.2 L (6.3-8.2) g/dL Albumin 3.5 (3.5-5.0) g/dL Amylase 133 H (30-110) U/L Lipase 3609 H (23-300) U/L 03/07/22 Range/Units 06:39 WBC (3.8-10.6) k/uL RBC (4.30-5.90) m/uL Hgb (13.0-17.5) gm/dL Hct (39.0-53.0) % MCV (80.0-100.0) fL MCH (25.0-35.0) pg MCHC (31.0-37.0) g/dL RDW (11.5-15.5) % Plt Count (150-450) k/uL MPV Neutrophils % % Lymphocytes % % Monocytes % % Eosinophils % % Basophils % % Neutrophils # (1.3-7.7) k/uL Lymphocytes # (1.0-4.8) k/uL Monocytes # (0-1.0) k/uL Eosinophils # (0-0.7) k/uL Basophils # (0-0.2) k/uL PT 11.2 (9.0-12.0) sec INR 1.1 (<1.2) APTT 27.6 (22.0-30.0) sec Sodium (137-145) mmol/L Potassium (3.5-5.1) mmol/L Chloride (98-107) mmol/L Carbon Dioxide (22-30) mmol/L Anion Gap mmol/L BUN (9-20) mg/dL Creatinine (0.66-1.25) mg/dL Est GFR (CKD-EPI)AfAm (>60 ml/min/1.73 sqM) Est GFR (CKD-EPI)NonAf (>60 ml/min/1.73 sqM) Glucose (74-99) mg/dL Plasma Lactic Acid Kevin (0.7-2.0) mmol/L Calcium (8.4-10.2) mg/dL Total Bilirubin (0.2-1.3) mg/dL AST (17-59) U/L ALT (4-49) U/L Alkaline Phosphatase (38-126) U/L Total Protein (6.3-8.2) g/dL Albumin (3.5-5.0) g/dL Amylase (30-110) U/L Lipase (23-300) U/L Disposition Clinical Impression: Pancreatitis, Abdominal pain Disposition: ADMITTED IP TO THIS [facility] Referrals: Justin Angeles MD [Primary Care Provider] - 1-2 days Decision Date: 03/07/22 Decision Time: 08:05
[2022-03-07 06:50] LABS: Basophils % (A) 0 %; Eosinophils # (A) 0.1 k/uL (0-0.7); Eosinophils % (A) 1 %; HCT 39.7 % (39.0-53.0); HGB 13.3 gm/dL (13.0-17.5); Lymphocytes # (A) 1.8 k/uL (1.0-4.8); Lymphocytes % (A) 14 %; MCH 29.7 pg (25.0-35.0); MCHC 33.5 g/dL (31.0-37.0); MCV 88.6 fL (80.0-100.0); Mean Platelet Volume 6.9; Monocytes # (A) 0.9 k/uL (0-1.0); Monocytes % (A) 7 %; Neutrophils # (A) 9.8 k/uL (1.3-7.7); Neutrophils % (A) 77 %; Platelet Count 281 k/uL (150-450); RBC 4.48 m/uL (4.30-5.90); RDW 13.7 % (11.5-15.5); WBC 12.7 k/uL (3.8-10.6)
[2022-03-07 07:00] LABS: ALT 29 U/L (4-49); AST 36 U/L (17-59); African American GFR (CKD) >90 (>60 ml/min/1.73 sqM); Albumin 3.5 g/dL (3.5-5.0); Alkaline Phosphatase 78 U/L (38-126); Amylase 133 U/L (30-110); Anion Gap 6 mmol/L; Blood Urea Nitrogen 21 mg/dL (9-20); Calcium 8.7 mg/dL (8.4-10.2); Carbon Dioxide 20 mmol/L (22-30); Chloride 109 mmol/L (98-107); Glucose 197 mg/dL (74-99); Non-African American GFR(CKD) >90 (>60 ml/min/1.73 sqM); Sodium 135 mmol/L (137-145); Total Bilirubin 0.6 mg/dL (0.2-1.3); Total Protein 6.2 g/dL (6.3-8.2)
[2022-03-07 07:03] LABS: Potassium 4.6 mmol/L (3.5-5.1)
[2022-03-07 07:12] LABS: INR 1.1 (<1.2); Partial Thromboplastin Time 27.6 sec (22.0-30.0); Prothrombin Time 11.2 sec (9.0-12.0)
[2022-03-07 07:17] LABS: Lipase 3609 U/L (23-300)
--- NOTE | 2022-03-07 08:00 | CT ---
EXAMINATION TYPE: CT abdomen pelvis w con CT DLP: 1318.9 mGycm, Automated exposure control for dose reduction was used. DATE OF EXAM: 03/07/2022 7:47 AM COMPARISON: CT abdomen pelvis most recent from 04/17/2019, MR pancreas 02/13/2022. CLINICAL INDICATION:Male, 71 years old with history of abd pain; Abdominal pain, flank and back TECHNIQUE: Standard CT of the abdomen and pelvis following the administration of 100 cc of Isovue 3 00 IV contrast material. Coronal and sagittal reformats were performed. FINDINGS: LOWER CHEST: Posterior dependent subsegmental atelectasis is noted. Coronary arterial calcifications. ABDOMEN LIVER: Unremarkable GALLBLADDER AND BILE DUCTS: The gallbladder is surgically absent. No biliary ductal dilatation. PANCREAS: Atrophic appearance of the pancreas with beaded dilated tortuous pancreatic duct and parenc hymal calcifications. There is surrounding mild fat stranding involving the pancreatic head/uncinate process. No peripancreatic fluid collections. No evidence for necrosis. Portal vein, SMV, and splenic vein are patent. No evidence for pseudoaneurysm. SPLEEN: Subcentimeter hyperintense 2 foci within the spleen which is too small to characterize. ADRENAL GLANDS: Unremarkable. KIDNEYS AND URETERS: No evidence of hydronephrosis or renal calculus. The kidneys enhance symmetrical ly. Similar left inferior pole lobulated cyst. PELVIS BLADDER: Unremarkable REPRODUCTIVE: Unremarkable. ABDOMEN & PELVIS STOMACH AND BOWEL: The stomach is unremarkable. There is circumferential wall thickening with strandi ng inflammatory changes involving the proximal duodenum. Left lower quadrant end colostomy. No eviden ce of bowel obstruction. PERITONEUM: No evidence of pneumoperitoneum or free fluid. VASCULATURE: Mild atherosclerotic calcifications are present throughout the abdominal aorta and its b ranches. No evidence of aortic aneurysm. MUSCULOSKELETAL: No acute osseous abnormalities. Degenerative changes L5-S1. LYMPH NODES: No gross evidence for lymphadenopathy. SOFT TISSUE/ABDOMINAL WALL: Left lower quadrant end colostomy with parastomal hernia containing nonob structive bowel. IMPRESSION: 1. Acute on chronic interstitial edematous pancreatitis. No peripancreatic collections. 2. Duodenitis, likely reactive to #1.
[2022-03-07] MEDS ORDERED: NALOXONE 0.4 MG/ML 1 ML VIAL IV PRN (08:12)
[2022-03-07] MEDS ORDERED: HYDROmorphone 0.5 MG/0.5 ML SYRINGE IVP PRN (08:12)
[2022-03-07] MEDS ORDERED: ALBUTEROL NEBULIZED 2.5 MG/3 ML INHALATION PRN (09:05)
[2022-03-07] MEDS ORDERED: ALPRAZolam 1 MG TAB PO PRN (09:05)
[2022-03-07] MEDS: SODIUM CHLORIDE 0.9% 1,000 ML IV SCH ×3 (09:38→23:24)
[2022-03-07] MEDS: IPRATROPIUM 0.5 MG/2.5 ML NEBU INHALATION SCH ×3 (11:27→20:19)
[2022-03-07] MEDS: PANTOPRAZOLE 40 MG/10 ML VIAL IV SCH (12:07)
[2022-03-07 12:15] LABS: Glucose,Whole Blood 144 mg/dL (70-110)
[2022-03-07 17:24] LABS: Glucose,Whole Blood 142 mg/dL (70-110)
[2022-03-07] MEDS: metFORMIN 500 MG TAB PO SCH (17:28)
--- NOTE | 2022-03-07 19:12 | P.HPIM ---
History of Present Illness H&P Date: 03/07/22 Chief Complaint: Abdominal pain 71-year-old male that presents with complaints of upper abdominal pain that feels like gas in the right upper quadrant and radiates over to the left upper quadrant. Patient states pain started yesterday after eating a peanut butter sandwich. He states pain has been improving. He states that he does have a history of pancreatitis and is concern for recurrence. He does see Dr. Amador and he had a MRI of the pancreas on February 13, he has not had his follow-up appointment with her yet. Patient also has a history of cholecystectomy, c erative colitis with an ileostomy, asthma, COPD, hypertension, diabetes, depression and V. tach MRI of the pancreas ordered by Dr Amador was performed on 02/13/2022 showing atrophic pancreatic parenchyma gland with tortuous main pancreatic duct. Scattered cystic lesions could represents probably prior pancreatitis versus intraductal papillary mucinous neoplasms. Overall findings of main ductal di latation have progressed from prior CT in April 2019. Left lower quadrant parastomal hernia containing some loops of small bowel no obstruction. Labs show mild leukocytosis, amylase 133, lipase of 3609, Lactic acid negative at 1.3. BUN/creatinine of 21/0.61, blood glucose of 197, CT of the abdomen and pelvis shows acute on chronic interstitial edematous pancreatitis with no peripancreatic collections. Duodenitis likely reactive to above. Left lower quadrant colostomy with parastomal hernia containing nonobstructive bowel. Gallbladder is surgically absent, with no biliary ductal dilatation. Review of Systems REVIEW OF SYSTEMS: CONSTITUTIONAL: No fever, no malaise, no fatigue. HEENT: No recent visual problems or hearing problems. Denied any sore throat. CARDIOVASCULAR: No chest pain, orthopnea, PND, no palpitations, no syncope. PULMONARY: No shortness of breath, no cough, no hemoptysis. GASTROINTESTINAL: No diarrhea, no nausea, no vomiting, no abdominal pain. NEUROLOGICAL: No headaches, no weakness, no numbness. HEMATOLOGICAL: Denies any bleeding or petechiae. GENITOURINARY: Denies any burning micturition, frequency, or urgency. MUSCULOSKELETAL/RHEUMATOLOGICAL: Denies any joint pain, swelling, or any muscle pain. ENDOCRINE: Denies any polyuria or polydipsia. The rest of the 14-point review of systems is negative. Past Medical History Past Medical History: Asthma, Chest Pain / Angina, COPD, Diabetes Mellitus, Hyperlipidemia, Hypertension, Thyroid Disorder Additional Past Medical History / Comment(s): Hx irreg HR. "Poor circulation in feet, NT in toes." WHEN REALLY SHORT OF BREATH GETS CP. HX ULCERATIVE COLITIS, HAS ILEOSTOMY, current parastomal hernia. Bruising on arms. pancreatitis History of Any Multi-Drug Resistant Organisms: None Reported Past Surgical History: Bowel Resection, Cholecystectomy, Heart Catheterization Additional Past Surgical History / Comment(s): HAS ILEOSTOMY, REASSIGNED IT LATER D/T HERNIATION. Past Anesthesia/Blood Transfusion Reactions: No Reported Reaction Past Psychological History: Anxiety, Depression Smoking Status: Current every day smoker Past Alcohol Use History: None Reported Past Drug Use History: None Reported - Past Family History Father Family Medical History: Cancer, COPD, Deep Vein Thrombosis (DVT) Additional Family Medical History / Comment(s): Lung cancer, varicose veins. Father at age 83 from either a stroke or ID. Sister(s) Family Medical History: Cancer, CVA/TIA Additional Family Medical History / Comment(s): Non-hodgkin's lymphoma. has 2 sisters one has history of CVA in her 40s, ulcerative colitis with ileostomy. One sister with no major medical problems. Brother(s) Family Medical History: Cancer Additional Family Medical History / Comment(s): Patient has 2 brothers one has passed from tongue cancer, one is alive with no major medical problems other than osteoarthritis. Mother Family Medical History: Diabetes Mellitus, Renal Disease Additional Family Medical History / Comment(s): Mother is at age 83 from renal failure with history of diabetes. Patient does not have any children. Medications and Allergies Home Medications Medication Instructions Recorded Confirmed Type ALPRAZolam [Xanax] 1 mg PO TID PRN 05/16/16 03/07/22 History FLUoxetine HCL [PROzac] 40 mg PO DAILY 05/16/16 03/07/22 History Nitroglycerin Sl Tabs [Nitrostat] 0.4 mg SUBLINGUAL Q5M PRN 05/16/16 03/07/22 History amLODIPine BESYLATE/BENAZEPRIL 1 cap PO DAILY 05/16/16 03/07/22 History [Lotrel 2.5-10 MG] metFORMIN HCL [Glucophage] 500 mg PO BID 05/16/16 03/07/22 History Albuterol Sulfate [Proair Hfa] 2 puff INHALATION RT-Q6H PRN 04/17/19 03/07/22 History C,E,Zinc,Copper 11/Rknes6t/Lut 1 cap PO DAILY 04/17/19 03/07/22 History [Ocuvite Adult 50 Plus Softgel] Levothyroxine Sodium [Synthroid] 25 mcg PO DAILY 04/17/19 03/07/22 History Pravastatin Sodium [Pravachol] 10 mg PO HS 04/17/19 03/07/22 History Metoprolol Tartrate [Lopressor] 25 mg PO BID 08/02/20 03/07/22 History Aspirin EC [Ecotrin Low Dose] 81 mg PO DAILY 03/07/22 03/07/22 History Fluticasone/Umeclidin/Vilanter 1 puff INHALATION RT-DAILY@1200 03/07/22 03/07/22 History [Trelegy Ellipta 100-62.5-25] Multivit-Min/FA/Lycopen/Lutein 1 tab PO DAILY 03/07/22 03/07/22 History [Centrum Silver Men Tablet] Rivaroxaban [Xarelto] 20 mg PO DIRECTED 03/07/22 03/07/22 History buPROPion HCL [buPROPion HCL SR] 100 mg PO DAILY 03/07/22 03/07/22 History Allergies Allergy/AdvReac Type Severity Reaction Status Date / Time No Known Allergies Allergy Verified 03/07/22 05:42 Physical Exam Vitals: Vital Signs Temp Pulse Pulse Resp BP BP Pulse Ox 03/07/22 11:42 72 03/07/22 11:27 72 03/07/22 09:50 97.7 F 72 17 154/63 99 03/07/22 07:19 66 18 127/80 98 03/07/22 05:43 97.9 F 99 18 128/78 98 Intake and Output 03/06/22 03/07/22 03/07/22 22:59 06:59 14:59 Other: Weight 89.811 kg PHYSICAL EXAMINATION: GENERAL: The patient is alert and oriented x3, not in any acute distress. Well developed, well nourished. HEENT: Pupils are round and equally reacting to light. EOMI. No scleral icterus. No conjunctival pallor. Normocephalic, atraumatic. No pharyngeal erythema. No thyromegaly. CARDIOVASCULAR: S1 and S2 present. No murmurs, rubs, or gallops. PULMONARY: Chest is clear to auscultation, no wheezing or crackles. ABDOMEN: Soft, nontender, nondistended, normoactive bowel sounds. No palpable organomegaly. MUSCULOSKELETAL: No joint swelling or deformity. EXTREMITIES: No cyanosis, clubbing, or pedal edema. NEUROLOGICAL: Gross neurological examination did not reveal any focal deficits. SKIN: No rashes. Results CBC & Chem 7: 03/07/22 06:39 03/07/22 06:39 Labs: Abnormal Lab Results - Last 24 Hours (Table) 03/07/22 03/07/22 03/07/22 Range/Units 06:39 06:39 12:14 WBC 12.7 H (3.8-10.6) k/uL Neutrophils # 9.8 H (1.3-7.7) k/uL Sodium 135 L (137-145) mmol/L Chloride 109 H (98-107) mmol/L Carbon Dioxide 20 L (22-30) mmol/L BUN 21 H (9-20) mg/dL Creatinine 0.61 L (0.66-1.25) mg/dL Glucose 197 H (74-99) mg/dL POC Glucose (mg/dL) 144 H (70-110) mg/dL Total Protein 6.2 L (6.3-8.2) g/dL Amylase 133 H (30-110) U/L Lipase 3609 H (23-300) U/L Assessment and Plan Assessment: 1. Acute on chronic pancreatitis; patient has been made nothing by mouth; IV fluids in form of normal saline at a rate of 1 20 mL an hour; we will monitor strict LISA's, daily weights; Protonix 40 mg IV daily - We will monitor amylase, lipase and liver enzymes 2. Leukocytosis; likely reactive; we will monitor CBC closely and initiate sepsis workup if patient becomes symptomatic or if white blood count continues to trend 3. Mild renal injury; patient has been placed on IV fluids; we will monitor renal function and electrolytes, strict LISA's, daily weights, avoid nephrotoxins and hypotension 4. Hypertension; metoprolol 25 mg twice a day; lisinopril 10 mg daily; amlodipine 2.5 mg daily 5. Hyperlipidemia; Pravachol 10 mg by mouth daily at bedtime 6. Hypothyroidism; levothyroxin 25 MCG daily 7. Asthma/COPD; we will continue with home immunotherapy in form of Symbicort twice a day; albuterol nebulizer treatments 4 times a day 8. Diabetes mellitus 2; patient takes metformin 500 mg twice a day - We will monitor Accu-Cheks every before meals and at bedtime with insulin sliding scale 9. History of DVT; continue with home dose of Xarelto 10. Anxiety/depression; Xanax 1 mg by mouth 3 times a day, Prozac 40 mg daily, Wellbutrin 100 mg daily
[2022-03-07] MEDS: METOPROLOL TARTRATE 25 MG TAB PO SCH (19:47)
[2022-03-07] MEDS: PRAVASTATIN SODIUM 20 MG TAB PO SCH (19:47)
[2022-03-07] MEDS: SYMBICORT 80-4.5 MCG INHALER INHALATION SCH (20:19)
[2022-03-08] MEDS: metFORMIN 500 MG TAB PO SCH ×2 (06:32→17:44)
[2022-03-08] MEDS: SODIUM CHLORIDE 0.9% 1,000 ML IV SCH ×3 (06:32→19:45)
[2022-03-08] MEDS: LEVOTHYROXINE 25 MCG TAB PO SCH (06:32)
[2022-03-08 06:33] LABS: Glucose,Whole Blood 131 mg/dL (70-110)
[2022-03-08] MEDS: IPRATROPIUM 0.5 MG/2.5 ML NEBU INHALATION SCH ×4 (08:25→20:11)
[2022-03-08] MEDS: SYMBICORT 80-4.5 MCG INHALER INHALATION SCH ×2 (08:25→20:12)
[2022-03-08] MEDS: PANTOPRAZOLE 40 MG/10 ML VIAL IV SCH (08:31)
[2022-03-08] MEDS: FLUoxetine HCL 20 MG CAP PO SCH (08:31)
[2022-03-08] MEDS: buPROPion SR 100 MG TABLET.ER PO SCH (08:31)
[2022-03-08] MEDS: RIVAROXABAN 20 MG TAB PO SCH (08:31)
[2022-03-08] MEDS: amLODIPine 2.5 MG TAB PO SCH (08:31)
[2022-03-08] MEDS: ASPIRIN 81 MG PO SCH (08:31)
[2022-03-08] MEDS: METOPROLOL TARTRATE 25 MG TAB PO SCH ×2 (08:31→19:44)
[2022-03-08] MEDS: lisinopriL 10 MG TAB PO SCH (08:31)
[2022-03-08 09:21] LABS: Basophils # (A) 0.01 X 10*3/uL (0.00-0.10); Basophils % (A) 0.1 %; Eosinophils # (A) 0.09 X 10*3/uL (0.04-0.35); Eosinophils % (A) 0.9 %; HCT 36.6 % (39.6-50.0); Immature Grans, Automated 0.5 %; Lymphocytes # (A) 1.91 X 10*3/uL (0.90-5.00); Lymphocytes % (A) 19.4 %; MCH 29.6 pg (27.0-32.0); MCHC 32.8 g/dL (32.0-37.0); MCV 90.1 fL (80.0-97.0); Mean Platelet Volume 9.8 fL (9.5-12.2); Monocytes # (A) 1.04 X 10*3/uL (0.20-1.00); Monocytes % (A) 10.5 %; NRBC Per 100 WBC 0 /100 WBCS (0.0-0.0); Neutrophils # (A) 6.77 X 10*3/uL (1.80-7.70); Neutrophils % (A) 68.6 %; Platelet Count 244 X 10*3/uL (140-440); RBC 4.06 X 10*6/uL (4.40-5.60); RDW 13.7 % (11.5-14.5); WBC 9.87 X 10*3/uL (4.50-10.00)
[2022-03-08 09:31] LABS: African American GFR (CKD) 115.6 (60.0-200.0); Albumin 3.3 g/dL (3.8-4.9); Albumin/Globulin Ratio 1.74 (1.60-3.17); Anion Gap 7.2 mmol/L (10.00-18.00); BUN/Creat Ratio 13.17 Ratio (12.00-20.00); Blood Urea Nitrogen 7.9 mg/dL (9.0-27.0); Calcium 8.5 mg/dL (8.7-10.3); Carbon Dioxide 22.8 mmol/L (20.0-27.5); Globulin 1.9 g/dL (1.6-3.3); Non-African American GFR(CKD) 99.7 (60.0-200.0); Potassium 4.2 mmol/L (3.5-5.5); Total Bilirubin 0.4 mg/dL (0.30-1.20); Total Protein 5.2 g/dL (6.2-8.2)
[2022-03-08 12:07] LABS: Glucose,Whole Blood 135 mg/dL (70-110)
[2022-03-08 17:30] LABS: Glucose,Whole Blood 156 mg/dL (70-110)
--- NOTE | 2022-03-08 19:13 | P.PN ---
Subjective Progress Note Date: 03/08/22 71-year-old male that presents with complaints of upper abdominal pain that feels like gas in the right upper quadrant and radiates over to the left upper quadrant. Patient states pain started yesterday after eating a peanut butter sandwich. He states pain has been improving. He states that he does have a history of pancreatitis and is concern for recurrence. He does see Dr. Amador and he had a MRI of the pancreas on February 13, he has not had his follow-up appointment with her yet. Patient also has a history of cholecystectomy, ulcerative colitis with an ileostomy, asthma, COPD, hypertension, diabetes, depression and V. tach MRI of the pancreas ordered by Dr Amador was performed on 02/13/2022 showing atrophic pancreatic parenchyma gland with tortuous main pancreatic duct. Scattered cystic lesions could represents probably prior pancreatitis versus intraductal papillary mucinous neoplasms. Overall findings of main ductal dilatation have progressed from prior CT in April 2019. Left lower quadrant parastomal hernia containing some loops of small bowel no obstruction. Labs show mild leukocytosis, amylase 133, lipase of 3609, Lactic acid negative at 1.3. BUN/creatinine of 21/0.61, blood glucose of 197, CT of the abdomen and pelvis shows acute on chronic interstitial edematous panc reatitis with no peripancreatic collections. Duodenitis likely reactive to above. Left lower quadrant colostomy with parastomal hernia containing nonobstructive bowel. Gallbladder is surgically absent, with no biliary ductal dilatation. Patient is currently on a clear liquid diet; we will plan to advance to regular diet, advancing slowly Possible discharge in next 24 hours if remains stable Objective - Vital Signs Vital signs: Vital Signs Temp 98.1 F 03/08/22 13:41 Pulse 88 03/08/22 13:41 Resp 16 03/08/22 13:41 BP 153/76 03/08/22 13:41 Pulse Ox 98 03/08/22 13:41 FiO2 Intake & Output 03/07/22 03/08/22 03/08/22 18:59 06:59 18:59 Intake Total 298 358 Output Total 400 Balance -102 358 Weight 89.811 kg Intake: Oral 298 358 Output: Urine 400 Other: Voiding Method Toilet Urinal # Voids 4 # Bowel Movements 1 - Exam PHYSICAL EXAMINATION: GENERAL: The patient is alert and oriented x3, not in any acute distress. Well developed, well nourished. HEENT: Pupils are round and equally reacting to light. EOMI. No scleral icterus. No conjunctival pallor. Normocephalic, atraumatic. No pharyngeal erythema. No thyromegaly. CARDIOVASCULAR: S1 and S2 present. No murmurs, rubs, or gallops. PULMONARY: Chest is clear to auscultation, no wheezing or crackles. ABDOMEN: Soft, nontender, nondistended, normoactive bowel sounds. No palpable organomegaly. MUSCULOSKELETAL: No joint swelling or deformity. EXTREMITIES: No cyanosis, clubbing, or pedal edema. NEUROLOGICAL: Gross neurological examination did not reveal any focal deficits. SKIN: No rashes. - Labs CBC & Chem 7: 03/08/22 05:58 03/08/22 05:58 Labs: Abnormal Lab Results - Last 24 Hours (Table) 03/07/22 03/08/22 03/08/22 Range/Units 17:23 05:58 05:58 RBC 4.06 L (4.40-5.60) X 10*6/uL Hgb 12.0 L (13.0-17.0) g/dL Hct 36.6 L (39.6-50.0) % Immature Gran # 0.05 H (0.00-0.04) X 10*3/uL Monocytes # 1.04 H (0.20-1.00) X 10*3/uL Anion Gap 7.20 L (10.00-18.00) mmol/L BUN 7.9 L (9.0-27.0) mg/dL Glucose 132 H (70-110) mg/dL POC Glucose (mg/dL) 142 H (70-110) mg/dL Calcium 8.5 L (8.7-10.3) mg/dL Total Protein 5.2 L (6.2-8.2) g/dL Albumin 3.3 L (3.8-4.9) g/dL Lipase 437 H (14-60) U/L 03/08/22 03/08/22 Range/Units 06:32 12:05 RBC (4.40-5.60) X 10*6/uL Hgb (13.0-17.0) g/dL Hct (39.6-50.0) % Immature Gran # (0.00-0.04) X 10*3/uL Monocytes # (0.20-1.00) X 10*3/uL Anion Gap (10.00-18.00) mmol/L BUN (9.0-27.0) mg/dL Glucose (70-110) mg/dL POC Glucose (mg/dL) 131 H 135 H (70-110) mg/dL Calcium (8.7-10.3) mg/dL Total Protein (6.2-8.2) g/dL Albumin (3.8-4.9) g/dL Lipase (14-60) U/L Assessment and Plan Assessment: 1. Acute on chronic pancreatitis; patient has been made nothing by mouth; IV fluids in form of normal saline at a rate of 1 20 mL an hour; we will monitor strict LISA's, daily weights; Protonix 40 mg IV daily - We will monitor amylase, lipase and liver enzymes 2. Leukocytosis; likely reactive; we will monitor CBC closely and initiate sepsis workup if patient becomes symptomatic or if white blood count continues to trend 3. Mild renal injury; patient has been placed on IV fluids; we will monitor renal function and electrolytes, strict LISA's, daily weights, avoid nephrotoxins and hypotension 4. Hypertension; metoprolol 25 mg twice a day; lisinopril 10 mg daily; amlodipine 2.5 mg daily 5. Hyperlipidemia; Pravachol 10 mg by mouth daily at bedtime 6. Hypothyroidism; levothyroxin 25 MCG daily 7. Asthma/COPD; we will continue with home immunotherapy in form of Symbicort twice a day; albuterol nebulizer treatments 4 times a day 8. Diabetes mellitus 2; patient takes metformin 500 mg twice a day - We will monitor Accu-Cheks every before meals and at bedtime with insulin sliding scale 9. History of DVT; continue with home dose of Xarelto 10. Anxiety/depression; Xanax 1 mg by mouth 3 times a day, Prozac 40 mg daily, Wellbutrin 100 mg daily
[2022-03-08] MEDS: PRAVASTATIN SODIUM 20 MG TAB PO SCH (19:44)
[2022-03-08 20:32] LABS: Glucose,Whole Blood 142 mg/dL (70-110)
[2022-03-09] MEDS: SODIUM CHLORIDE 0.9% 1,000 ML IV SCH ×2 (00:35→12:16)
[2022-03-09 06:00] LABS: Glucose,Whole Blood 145 mg/dL (70-110)
[2022-03-09] MEDS: metFORMIN 500 MG TAB PO SCH (06:09)
[2022-03-09] MEDS: LEVOTHYROXINE 25 MCG TAB PO SCH (06:09)
[2022-03-09 07:23] VITALS: BP 126/67; RESP 16; TEMP 98.2
[2022-03-09] MEDS: FLUoxetine HCL 20 MG CAP PO SCH (07:48)
[2022-03-09] MEDS: buPROPion SR 100 MG TABLET.ER PO SCH (07:48)
[2022-03-09] MEDS: METOPROLOL TARTRATE 25 MG TAB PO SCH (07:48)
[2022-03-09] MEDS: ASPIRIN 81 MG PO SCH (07:48)
[2022-03-09] MEDS: amLODIPine 2.5 MG TAB PO SCH (07:48)
[2022-03-09] MEDS: PANTOPRAZOLE 40 MG/10 ML VIAL IV SCH (07:48)
[2022-03-09] MEDS: lisinopriL 10 MG TAB PO SCH (07:48)
[2022-03-09] MEDS: RIVAROXABAN 20 MG TAB PO SCH (07:48)
[2022-03-09] MEDS: IPRATROPIUM 0.5 MG/2.5 ML NEBU INHALATION SCH ×2 (08:30→12:00)
[2022-03-09] MEDS: SYMBICORT 80-4.5 MCG INHALER INHALATION SCH (08:30)
[2022-03-09 10:14] LABS: African American GFR (CKD) 102.7 (60.0-200.0); Anion Gap 7.6 mmol/L (10.00-18.00); BUN/Creat Ratio 11.38 Ratio (12.00-20.00); Blood Urea Nitrogen 9.1 mg/dL (9.0-27.0); Calcium 8.8 mg/dL (8.7-10.3); Carbon Dioxide 23.4 mmol/L (20.0-27.5); Non-African American GFR(CKD) 88.6 (60.0-200.0); Potassium 4.1 mmol/L (3.5-5.5)
[2022-03-09 12:03] VITALS: PULSE 80
[2022-03-09 12:46] LABS: Glucose,Whole Blood 138 mg/dL (70-110)
[2022-03-10] MEDS ORDERED: PANTOPRAZOLE 40 MG TABLET PO SCH (07:30)
== END 2022-03-09 14:00 | disposition home or self-care (01) ==
LOC: EC 05:38 → 6NMEDSUR 09:16
PROVIDERS: ADMIT Hospitalist; ATTEND Hospitalist
DX: K85.90 Acute pancreatitis without necrosis or infection, unspecified (principal); K86.1 Other chronic pancreatitis; K29.80 Duodenitis without bleeding; K43.5 Parastomal hernia without obstruction or gangrene; D72.829 Elevated white blood cell count, unspecified; N28.9 Disorder of kidney and ureter, unspecified; J44.9 Chronic obstructive pulmonary disease, unspecified; E11.9 Type 2 diabetes mellitus without complications; I10 Essential (primary) hypertension; E78.5 Hyperlipidemia, unspecified; I47.20 Ventricular tachycardia, unspecified; F41.9 Anxiety disorder, unspecified; F32.A Depression, unspecified; E03.9 Hypothyroidism, unspecified; F17.200 Nicotine dependence, unspecified, uncomplicated; Z79.84 Long term (current) use of oral hypoglycemic drugs; Z79.890 Hormone replacement therapy; Z79.82 Long term (current) use of aspirin; Z79.51 Long term (current) use of inhaled steroids; Z79.01 Long term (current) use of anticoagulants; Z79.899 Other long term (current) drug therapy; Z93.2 Ileostomy status; Z87.19 Personal history of other diseases of the digestive system; Z90.49 Acquired absence of other specified parts of digestive tract; Z86.718 Personal history of other venous thrombosis and embolism; Z82.5 Family history of asthma and other chronic lower respiratory diseases; Z82.49 Family history of ischemic heart disease and other diseases of the circulatory system; Z80.1 Family history of malignant neoplasm of trachea, bronchus and lung; Z80.7 Family history of other malignant neoplasms of lymphoid, hematopoietic and related tissues; Z80.0 Family history of malignant neoplasm of digestive organs; Z82.61 Family history of arthritis; Z83.79 Family history of other diseases of the digestive system; Z82.3 Family history of stroke; Z83.3 Family history of diabetes mellitus; Z84.1 Family history of disorders of kidney and ureter
CPT/HCPCS: 96376 ×2; 96361 ×2; 96374; 99285; 36415; 94640 ×6; 80053 ×2; 80048; 82150 ×2; 83605; 83690 ×2; 85025 ×2; 85610; 85730; 74177; G0378 ×3; S0106 ×2; C9113 ×3; Q9967

== ENCOUNTER → 2022-06-30 | Outpatient (CLI) | payer MEDICARE ==
[2022-06-30 16:08] LABS: African American GFR (CKD) 81.6 (60.0-200.0); Albumin 3.8 g/dL (3.8-4.9); Albumin/Globulin Ratio 1.74 (1.60-3.17); Anion Gap 9.3 mmol/L (10.00-18.00); BUN/Creat Ratio 26.35 Ratio (12.00-20.00); Blood Urea Nitrogen 27.4 mg/dL (9.0-27.0); Calcium 9.1 mg/dL (8.7-10.3); Carbon Dioxide 20.7 mmol/L (20.0-27.5); Globulin 2.2 g/dL (1.6-3.3); Non-African American GFR(CKD) 70.4 (60.0-200.0); Potassium 5.3 mmol/L (3.5-5.5); Total Bilirubin 0.2 mg/dL (0.30-1.20)
[2022-06-30 16:48] LABS: Basophils # (A) 0.04 X 10*3/uL (0.00-0.10); Basophils % (A) 0.4 %; Eosinophils # (A) 0.19 X 10*3/uL (0.04-0.35); Eosinophils % (A) 2.1 %; HCT 38.9 % (39.6-50.0); HGB 12.3 g/dL (13.0-17.0); Immature Grans, Automated 1.2 %; Lymphocytes # (A) 1.78 X 10*3/uL (0.90-5.00); Lymphocytes % (A) 19.2 %; MCH 29.4 pg (27.0-32.0); MCHC 31.6 g/dL (32.0-37.0); MCV 92.8 fL (80.0-97.0); Mean Platelet Volume 9.8 fL (9.5-12.2); Monocytes # (A) 0.69 X 10*3/uL (0.20-1.00); Monocytes % (A) 7.5 %; NRBC Per 100 WBC 0 /100 WBCS (0.0-0.0); Neutrophils # (A) 6.44 X 10*3/uL (1.80-7.70); Neutrophils % (A) 69.6 %; Platelet Count 317 X 10*3/uL (140-440); RBC 4.19 X 10*6/uL (4.40-5.60); WBC 9.25 X 10*3/uL (4.50-10.00)
== END | disposition home or self-care (01) ==
LOC: LABWHC1 09:32
PROVIDERS: ATTEND Family Medicine
DX: I10 Essential (primary) hypertension (principal); E11.39 Type 2 diabetes mellitus with other diabetic ophthalmic complication; K86.1 Other chronic pancreatitis
CPT/HCPCS: 36415; 80053; 82150; 83036; 83690; 85025

== ENCOUNTER → 2023-02-17 | Outpatient (CLI) | payer MEDICARE ==
--- NOTE | 2023-02-19 15:28 | CTL ---
EXAMINATION TYPE: CT Low Dose Lung DATE OF EXAM: 02/17/2023 2:06 PM CLINICAL INDICATION:Male, 72 years old with history of Z87.891 hx of tobacco dependence; current smok er 1 pack a day x50 years. , history of tobacco use. COMPARISON: None available, this is a baseline study TECHNIQUE: CT scan of the chest obtained without contrast from approximately the lung apices through the upper abdomen. Axial, coronal and sagittal reformatted images were obtained. Low dose technique w as utilized for nodule screening purposes. CT DLP: 118.80 mGycm, Automated exposure control for dose reduction was used. CT Contrast: Contrast used: None Oral contrast used: None FINDINGS: Lack of intravenous contrast and low dose technique limits the evaluation of the vascular and soft ti ssue structures. LUNGS: No evidence of pulmonary fibrosis. No evidence of focal consolidation, pneumothorax or pleural effusion. There are emphysematous changes bilaterally, moderate in degree, upper lobe predominant. L inear and bandlike opacities in the right lower lobe, bandlike opacities in the lingular portion of t he left upper lobe, have the appearance of scarring. Nodules: RUL: Calcified nodule consistent with granuloma measures 5 mm posteriorly series 4 image 45. RML: None RLL: None LALIA: Groundglass nodule lateral subpleural measures 12 mm, image 31. Solid 3 mm nodule posteriorl y image 32. LLL: None AIRWAY: Trachea is patent. There is a globular and linear opacity extending along the left posterior wall and to the left mainstem bronchus, suggesting mucus secretion. Larger airways are otherwise jasmine nt. LOWER NECK: No significant findings. HEART AND VASCULATURE: Heart is normal in size.. Moderate coronary artery calcifications and/or stent s. Trace pericardial effusion. Mild/moderate calcifications of the aorta. Mild ectasia of the ascend ing aorta, 3.5 cm. Descending aorta 2.9 cm. Main pulmonary artery is nonenlarged, 2.5 cm. MEDIASTINUM: No gross evidence of adenopathy. SOFT TISSUES/LYMPH NODES: Unremarkable soft tissues. No axillary adenopathy. UPPER ABDOMEN: No significant findings. MUSCULOSKELETAL: Moderate disc degeneration changes are present throughout the thoracolumbar spine. C hronic appearing mild to moderate vertebral body height loss with mild anterior wedging at the T6, T7 , T10, T11 levels, favored to be chronic. Mild chronic appearing deformity of the manubrium of the st ernum. Small scarred focus at the anterior aspect of the T7 vertebral body. No destructive bone lesio ns are seen. IMPRESSION: 1. A few lung nodules with benign appearance, including a 12 mm groundglass nodule in the left upper lobe. 2. Moderate pulmonary emphysematous changes. 3. Moderate coronary artery calcifications. 4. Other chronic and likely incidental findings, as described above. CT LUNG RAD AND CT CHEST RECOMMENDATION: Lung-Rad 2 Benign Appearance or Behavior: Continue annual sc reening with LDCT in 12 months. C Modifier (Personal history of lung cancer?): No. S Modifier (Other clinically significant or potentially significant findings?): Yes Other significant or potentially significant abnormalities: Coronary arterial calcification moderate or severe. Recommend smoking cessation (if current smoker), or continuation of smoking cessation (if prior smoke r). Annual screening for lung cancer with low-dose computed tomography is recommended in adults ages 55 to 77 years who have a 30 pack-year smoking history and currently smoke or have quit within the pa st 15 years. Screening should be discontinued once a person has not smoked for 15 years or develops a health problem that substantially limits life expectancy or the ability or willingness to have curat [place] lung surgery. Lung rads 2021 [email or web address]
== END | disposition home or self-care (01) ==
LOC: RADCTMAIN 13:45
PROVIDERS: ATTEND Internal Medicine
DX: Z12.2 Encounter for screening for malignant neoplasm of respiratory organs (principal); F17.210 Nicotine dependence, cigarettes, uncomplicated; I25.10 Atherosclerotic heart disease of native coronary artery without angina pectoris; J43.9 Emphysema, unspecified; R91.8 Other nonspecific abnormal finding of lung field
CPT/HCPCS: 71271

== ENCOUNTER → 2023-09-02 | Outpatient (CLI) | payer MEDICARE ==
[2023-09-02 12:38] LABS: African American GFR (CKD) >90 (>60 ml/min/1.73 sqM); Blood Urea Nitrogen 21 mg/dL (9-20); Non-African American GFR(CKD) 85 (>60 ml/min/1.73 sqM)
--- NOTE | 2023-09-02 13:39 | CT ---
EXAMINATION TYPE: CT chest w con DATE OF EXAM: 09/02/2023 COMPARISON: 02/17/2023 HISTORY: Lung nodule. COPD. CT DLP: 493.6 mGycm Automated exposure control for dose reduction was used. CONTRAST: CT scan of the chest is performed with IV Contrast, patient injected with 100 mL of Isovue 300. FINDINGS: LUNGS: Linear parenchymal scarring right lung base seen best on coronal data set. Bandlike scarring o r atelectasis seen within the lingula. Left lower lobe groundglass nodule described previously is not reproduced at this time. Calcified granuloma right upper lobe. 2 mm subpleural nodule right lower lo be image 26. Mild scattered emphysematous changes. MEDIASTINUM: There are no greater than 1 cm hilar or mediastinal lymph nodes. No pericardial effusi on is seen. Thoracic aorta is of normal caliber. The heart is not enlarged. UPPER ABDOMEN: No significant abnormality appreciated. OTHER: No additional significant abnormality is seen. IMPRESSION: 1. No concerning pulmonary nodules greater than 5 mm. Annual follow-up is recommended. 2. Emphysematous changes.
== END | disposition home or self-care (01) ==
LOC: RADCTMAIN 11:59
PROVIDERS: ATTEND Internal Medicine
DX: R91.1 Solitary pulmonary nodule (principal); J43.9 Emphysema, unspecified
CPT/HCPCS: 82565; 84520; 71260; 36415; Q9967

== ENCOUNTER 2024-04-20 05:56 | Emergency (ER) | payer MEDICARE ==
[2024-04-20 06:02] VITALS: TEMP 98.4
--- NOTE | 2024-04-20 06:28 | ED ---
General Adult HPI - General Chief complaint: Nausea/Vomiting/Diarrhea Stated complaint: nausea Time Seen by Provider: 04/20/24 06:03 Source: patient, EMS, RN notes reviewed Mode of arrival: EMS - History of Present Illness Initial comments: 74-year-old male presents to the emergency department for evaluation of nausea, cough, congestion. Patient states that he had a stress test yesterday. He notes that after his stress test he ate a light meal. He reports feeling nauseous after this. He denies any vomiting. He states that he thought this would subside but it is continued. He also admits to nasal congestion and cough along with dry mouth. Denies abdominal pain. He denies any known fever. He has a history of a bowel resection with an ostomy bag. He admits to normal output. - Related Data Home Medications Medication Instructions Recorded Confirmed ALPRAZolam [Xanax] 1 mg PO TID 05/16/16 04/20/24 FLUoxetine HCL [PROzac] 40 mg PO DAILY 05/16/16 04/20/24 Nitroglycerin Sl Tabs [Nitrostat] 0.4 mg SUBLINGUAL Q5M PRN 05/16/16 04/20/24 C,E,Zinc,Copper 11/Bysvf1s/Lut 1 cap PO HS 04/17/19 04/20/24 [Ocuvite Adult 50 Plus Softgel] Levothyroxine Sodium [Synthroid] 25 mcg PO DAILY 04/17/19 04/20/24 Pravastatin Sodium [Pravachol] 10 mg PO HS 04/17/19 04/20/24 Metoprolol Tartrate [Lopressor] 25 mg PO BID 08/02/20 04/20/24 Aspirin EC [Ecotrin Low Dose] 81 mg PO DAILY 03/07/22 04/20/24 Fluticasone/Umeclidin/Vilanter 1 puff INHALATION RT-DAILY 03/07/22 04/20/24 [Trelegy Ellipta 100-62.5-25] Mv-Min/Folic/K1/Lycopen/Lutein 1 tab PO HS 03/07/22 04/20/24 [Centrum Silver Men Tablet] Rivaroxaban [Xarelto] 20 mg PO W/SUPPER 03/07/22 04/20/24 buPROPion HCL [buPROPion HCL SR] 100 mg PO DAILY 03/07/22 04/20/24 Albuterol Sulfate [Ventolin HFA] 2 puff INHALATION RT-QID PRN 04/20/24 04/20/24 Glimepiride [Amaryl] 2 mg PO W/BRKFST 04/20/24 04/20/24 Losartan [Cozaar] 25 mg PO DAILY 04/20/24 04/20/24 Pioglitazone [Actos] 30 mg PO HS 04/20/24 04/20/24 Pyridoxine [Vitamin B-6] 50 mg PO HS 04/20/24 04/20/24 Zinc 30mg 30 mg PO HS 04/20/24 04/20/24 metFORMIN HCL ER [Glucophage XR] 500 mg PO BID 04/20/24 04/20/24 Previous Rx's Medication Instructions Recorded Metoclopramide [Reglan] 10 mg PO TID PRN #9 tab 04/20/24 Allergies Allergy/AdvReac Type Severity Reaction Status Date / Time shellfish derived [Shellfish] AdvReac Nausea Verified 04/20/24 10:10 Review of Systems ROS Statement: Those systems with pertinent positive or pertinent negative responses have been documented in the HPI. ROS Other: All systems not noted in ROS Statement are negative. Past Medical History Past Medical History: Asthma, Chest Pain / Angina, COPD, Diabetes Mellitus, Hyperlipidemia, Hypertension, Thyroid Disorder Additional Past Medical History / Comment(s): Hx irreg HR. "Poor circulation in feet, NT in toes." WHEN REALLY SHORT OF BREATH GETS CP. HX ULCERATIVE COLITIS, HAS ILEOSTOMY, current parastomal hernia. Bruising on arms. pancreatitis History of Any Multi-Drug Resistant Organisms: None Reported Past Surgical History: Bowel Resection, Cholecystectomy, Heart Catheterization Additional Past Surgical History / Comment(s): HAS ILEOSTOMY, REASSIGNED IT LATER D/T HERNIATION. Past Anesthesia/Blood Transfusion Reactions: No Reported Reaction Past Psychological History: Anxiety, Depression Smoking Status: Current every day smoker Past Alcohol Use History: None Reported Past Drug Use History: None Reported - Past Family History Father Family Medical History: Cancer, COPD, Deep Vein Thrombosis (DVT) Additional Family Medical History / Comment(s): Lung cancer, varicose veins. Father at age 83 from either a stroke or [place]. Sister(s) Family Medical History: Cancer, CVA/TIA Additional Family Medical History / Comment(s): Non-hodgkin's lymphoma. has 2 sisters one has history of CVA in her 40s, ulcerative colitis with ileostomy. One sister with no major medical problems. Brother(s) Family Medical History: Cancer Additional Family Medical History / Comment(s): Patient has 2 brothers one has passed from tongue cancer, one is alive with no major medical problems other than osteoarthritis. Mother Family Medical History: Diabetes Mellitus, Renal Disease Additional Family Medical History / Comment(s): Mother is at age 83 from renal failure with history of diabetes. Patient does not have any children. General Exam Limitations: no limitations General appearance: alert, in no apparent distress Eye exam: Present: normal appearance, PERRL, EOMI. Absent: scleral icterus, conjunctival injection, periorbital swelling ENT exam: Present: mucous membranes dry Neck exam: Present: normal inspection. Absent: tenderness, meningismus, lymphadenopathy Respiratory exam: Present: normal lung sounds bilaterally. Absent: respiratory distress, wheezes, rales, rhonchi, stridor Cardiovascular Exam: Present: regular rate, normal rhythm, normal heart sounds. Absent: systolic murmur, diastolic murmur, rubs, gallop, clicks GI/Abdominal exam: Present: soft. Absent: distended, tenderness, guarding, rebound, rigid Extremities exam: Present: normal inspection, full ROM, normal capillary refill. Absent: tenderness, pedal edema, joint swelling, calf tenderness Neurological exam: Present: alert, oriented X3 Psychiatric exam: Present: normal affect, normal mood Skin exam: Present: warm, dry, intact, normal color. Absent: rash Course Vital Signs 04/20/24 04/20/24 04/20/24 05:57 08:00 08:55 Temperature 98.4 F Pulse Rate 109 H 78 Respiratory 16 18 Rate Blood Pressure 152/93 146/77 O2 Sat by Pulse 95 93 L 96 Oximetry 04/20/24 10:45 Temperature Pulse Rate 87 Respiratory 18 Rate Blood Pressure 132/89 O2 Sat by Pulse 93 L Oximetry Medical Decision Making - Medical Decision Making Was pt. sent in by a medical professional or institution (, PA, PROCUREMENT AGENT, urgent care, hospital, or correction...) When possible be specific @ -No Did you speak to anyone other than the patient for history (EMS, parent, family, police, friend...)? What history was obtained from this source @ -No Did you review nursing and triage notes (agree or disagree)? Why? @ -I reviewed and agree with nursing and triage notes Were old charts reviewed (outside hosp., previous admission, EMS record, old EKG, old radiological studies, urgent care reports/EKG's, correction records)? Report findings @ -No old charts were reviewed Differential Diagnosis (chest pain, altered mental status, abdominal pain women, abdominal pain men, vaginal bleeding, weakness, fever, dyspnea, syncope, headache, dizziness, GI bleed, back pain, seizure, CVA, palpatations, mental health, musculoskeletal)? @ -Not applicable EKG interpreted by me (3pts min.). @ -EKG at636 shows sinus rhythm rate 83, OK 158, QRS 86, QTQTc [id number] X-rays interpreted by me (1pt min.). @ -Chest x-ray shows no acute process CT interpreted by me (1pt min.). @ -None done U/S interpreted by me (1pt. min.). @ -None done What testing was considered but not performed or refused? (CT, X-rays, U/S, l abs)? Why? @ -None What meds were considered but not given or refused? Why? @ -None Did you discuss the management of the patient with other professionals (professionals i.e. , PA, PROCUREMENT AGENT, lab, RT, psych nurse, director social service, admiralty lawyer, teacher, catapult and arresting gear officer, rn case mgr)? Give summary @ -No Was smoking cessation discussed for >3mins.? @ -No Was critical care preformed (if so, how long)? @ -No Were there social determinants of health that impacted care today? How? (Homelessness, low income, unemployed, alcoholism, drug addiction, transportation, low edu. Level, literacy, decrease access to med. care, correction, rehab)? @ -No Was there de-escalation of care discussed even if they declined (Discuss DNR or withdrawal of care, Hospice)? DNR status @ -No What co-morbidities impacted this encounter? (DM, HTN, Smoking, COPD, CAD, Cancer, CVA, ARF, Chemo, Hep., AIDS, mental health diagnosis, sleep apnea, morbid obesity)? @ -None Was patient admitted / discharged? Hospital course, mention meds given and route, prescriptions, significant lab abnormalities, going to OR and other pertinent info. @ -Discharge. Patient presented emergency department for evaluation of nausea, cough, congestion. Laboratory studies were performed revealing mild leukocytosis at 12Hemoglobin 15; CMP is nonactionable at this time patient was negative for COVID, influenza, RSV. Chest x-ray obtained revealing no acute process. Patient was administered 1 L of normal saline in the emergency department. He was also administered Zofran. He states that this did not help much. Reglan was therefore given because of this and patient notes some improvement with this. He is tolerating p.o. intake. He will be discharged home. He is understanding agreeable plan. Patient stable at time discharge. Case discussed with Dr. Nagel. Undiagnosed new problem with uncertain prognosis? @ -No Drug Therapy requiring intensive monitoring for toxicity (Heparin, Nitro, Insulin, Cardizem)? @ -No Were any procedures done? @ -No Diagnosis/symptom? @ -Nausea without vomiting Acute, or Chronic, or Acute on Chronic? @ -Acute Uncomplicated (without systemic symptoms) or Complicated (systemic symptoms)? @ -Uncomplicated Side effects of treatment? @ -No Exacerbation, Progression, or Severe Exacerbation? @ -No Poses a threat to life or bodily function? How? (Chest pain, [place], [place], pneumonia, PE, COPD, DKA, ARF, appy, cholecystitis, CVA, Diverticulitis, Homicidal, Suicidal, threat to staff... and all critical care pts) @ -No - Lab Data Result diagrams: 04/20/24 06:04 04/20/24 06:04 Lab Results 04/20/24 04/20/24 04/20/24 Range/Units 06:00 06:04 06:04 WBC 12.1 H (3.8-10.6) k/uL RBC 5.15 (4.30-5.90) m/uL Hgb 15.0 (13.0-17.5) gm/dL Hct 47.0 (39.0-53.0) % MCV 91.3 (80.0-100.0) fL MCH 29.2 (25.0-35.0) pg MCHC 32.0 (31.0-37.0) g/dL RDW 13.8 (11.5-15.5) % Plt Count 339 (150-450) k/uL MPV 7.1 Neutrophils % 68 % Lymphocytes % 22 % Monocytes % 7 % Eosinophils % 2 % Basophils % 0 % Neutrophils # 8.2 H (1.3-7.7) k/uL Lymphocytes # 2.7 (1.0-4.8) k/uL Monocytes # 0.8 (0-1.0) k/uL Eosinophils # 0.2 (0-0.7) k/uL Basophils # 0.0 (0-0.2) k/uL Hypochromasia Slight Sodium 138 (137-145) mmol/L Potassium 4.1 (3.5-5.1) mmol/L Chloride 104 (98-107) mmol/L Carbon Dioxide 21 L (22-30) mmol/L Anion Gap 13 mmol/L BUN 19 (9-20) mg/dL Creatinine 0.70 (0.66-1.25) mg/dL Est GFR (CKD-EPI)AfAm >90 (>60 ml/min/1.73 sqM) Est GFR (CKD-EPI)NonAf >90 (>60 ml/min/1.73 sqM) Glucose 153 H (74-99) mg/dL Calcium 9.3 (8.4-10.2) mg/dL Total Bilirubin 0.9 (0.2-1.3) mg/dL AST 29 (17-59) U/L ALT 23 (4-49) U/L Alkaline Phosphatase 111 (38-126) U/L Total Protein 7.3 (6.3-8.2) g/dL Albumin 4.1 (3.5-5.0) g/dL Influenza Type A (PCR) Not Detected (Not Detectd) Influenza Type B (PCR) Not Detected (Not Detectd) RSV (PCR) Not Detected (Not Detectd) SARS-CoV-2 (PCR) Not Detected (Not Detectd) Disposition Clinical Impression: Dehydration, Nausea Disposition: HOME SELF-CARE Condition: Stable Instructions (If sedation given, give patient instructions): Acute Nausea and Vomiting (ED) Additional Instructions: Please follow up with your primary care provider. Return to the emergency department for new or worsening symptoms. Is patient prescribed a controlled substance at d/c from ED?: No Referrals: Justin Angeles [Primary Care Provider] - 1-2 days
[2024-04-20] MEDS: ONDANSETRON 4 MG/2 ML VIAL IVP STA (06:33)
[2024-04-20] MEDS: SODIUM CHLORIDE 0.9% 1,000 ML IV ONE (06:34)
[2024-04-20 06:44] LABS: Basophils % (A) 0 %; Eosinophils # (A) 0.2 k/uL (0-0.7); Eosinophils % (A) 2 %; Hypochromasia Slight; Lymphocytes # (A) 2.7 k/uL (1.0-4.8); Lymphocytes % (A) 22 %; MCH 29.2 pg (25.0-35.0); MCV 91.3 fL (80.0-100.0); Mean Platelet Volume 7.1; Monocytes # (A) 0.8 k/uL (0-1.0); Monocytes % (A) 7 %; Neutrophils # (A) 8.2 k/uL (1.3-7.7); Neutrophils % (A) 68 %; Platelet Count 339 k/uL (150-450); RBC 5.15 m/uL (4.30-5.90); RDW 13.8 % (11.5-15.5); WBC 12.1 k/uL (3.8-10.6)
[2024-04-20 06:51] LABS: ALT 23 U/L (4-49); AST 29 U/L (17-59); African American GFR (CKD) >90 (>60 ml/min/1.73 sqM); Albumin 4.1 g/dL (3.5-5.0); Alkaline Phosphatase 111 U/L (38-126); Anion Gap 13 mmol/L; Blood Urea Nitrogen 19 mg/dL (9-20); Calcium 9.3 mg/dL (8.4-10.2); Carbon Dioxide 21 mmol/L (22-30); Chloride 104 mmol/L (98-107); Glucose 153 mg/dL (74-99); Non-African American GFR(CKD) >90 (>60 ml/min/1.73 sqM); Potassium 4.1 mmol/L (3.5-5.1); Sodium 138 mmol/L (137-145); Total Bilirubin 0.9 mg/dL (0.2-1.3); Total Protein 7.3 g/dL (6.3-8.2)
--- NOTE | 2024-04-20 07:03 | XR ---
EXAMINATION TYPE: XR chest 2V DATE OF EXAM: 04/20/2024 6:43 AM COMPARISON: Chest radiographs from 05/12/2019 CLINICAL INDICATION: Male, 74 years old with history of cough; [facility] TECHNIQUE: XR chest 2V Frontal and lateral views of the chest. FINDINGS: Lungs/Pleura: There is no evidence of pleural effusion, focal consolidation, or pneumothorax. Pulmonary vascularity: Unremarkable. Heart/mediastinum: Cardiomediastinal silhouette is unremarkable. Musculoskeletal: No acute osseous pathology. Other findings: None IMPRESSION: No acute cardiopulmonary disease/process. [facility], , 04/20/2024 7:01 AM
[2024-04-20 08:00] LABS: Influenza A Not Detected (Not Detectd); Influenza B Not Detected (Not Detectd); RSV Not Detected (Not Detectd)
[2024-04-20 08:08] VITALS: RESP 18
[2024-04-20] MEDS: METOCLOPRAMIDE 5 MG/ML 2 ML VIAL IVP STA (08:46)
[2024-04-20 10:46] VITALS: BP 132/89; PULSE 87
== END 2024-04-20 10:46 | disposition home or self-care (01) ==
LOC: EC 05:56
DX: E86.0 Dehydration (principal); R11.2 Nausea with vomiting, unspecified; F17.200 Nicotine dependence, unspecified, uncomplicated
CPT/HCPCS: 36415; 93005; 80053; 85025; 87636; 71046; 99284; 96374; 96375; 96361; J2765; J2405

== ENCOUNTER → 2024-09-02 | Outpatient (CLI) | payer MEDICARE ==
--- NOTE | 2024-09-02 14:15 | CTL ---
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 TECHNIQUE: Low dose computed tomography scan was performed through the chest at 1 mm thick sections a nd reconstructed images in multiple planes at 1 mm and [address] DLP: 123.[address] CTDI: 3.60 mGy Automated exposure control for dose reduction was used. CT DIAGNOSTIC QUALITY: Satisfactory FINDINGS: Nodules: Subpleural right upper lobe stable 3.5 mm calcified granuloma. Stable posterior left upper lobe subpleural 3.2 mm pulmonary nodule (series 4, image 37). LUNGS: COPD: Severity: Mild to moderate centrilobular and paraseptal emphysematous changes. Fibrosis: Severity: None Lymph nodes: None Other findings: Scattered linear scarring within the lingula and right lower lobe. There is suggestiv e mucous secretion within the trachea. RIGHT PLEURAL SPACE: Effusion: None Calcification: None Thickening: Mild Pneumothorax: None LEFT PLEURAL SPACE: Effusion: None Calcification: None Thickening: Mild Pneumothorax: None HEART: Heart Size: Normal Coronary Calcification: Mild Pericardial Effusion: None OTHER FINDINGS: Upper abdomen: None Bony thorax: Similar anterior wedge compression deformities of the T6 and T7 vertebral bodies with in creased thoracic kyphosis. Multilevel anterior osteophytosis with multilevel superior endplate Schmor l's nodes. Removal fracture deformity of the manubrium suggested. Supraclavicular region: None Other: Mild atherosclerotic calcification of the aorta and its branches. IMPRESSION: 1. Stable calcified granuloma and left upper lobe 3.2 mm pulmonary nodule. No new or enlarging clinic ally significant pulmonary nodules. 2. Mild to moderate emphysematous changes. CT LUNG RAD AND CT CHEST RECOMMENDATION: Lung-Rad 2 Benign Appearance or Behavior: Continue annual sc reening with LDCT in 12 months. S Modifier (other clinically significant findings): None [facility], Workstation: [place], 09/02/2024 2:13 PM
== END | disposition home or self-care (01) ==
LOC: RADCTMAIN 12:44
PROVIDERS: ATTEND Internal Medicine
DX: Z12.2 Encounter for screening for malignant neoplasm of respiratory organs (principal); F17.210 Nicotine dependence, cigarettes, uncomplicated; J43.9 Emphysema, unspecified; J84.10 Pulmonary fibrosis, unspecified; R91.1 Solitary pulmonary nodule
CPT/HCPCS: 71271